=== PATIENT | female | born 1935 | race Caucasian/White ===

== ENCOUNTER 2025-09-03 09:01 | Inpatient (IN) | payer MEDICARE, SELFPAY ==
[2025-09-03] VITALS (16 sets, daily range): BP systolic 105–148; BP diastolic 46–120; BMI 28.2
--- NOTE | 2025-09-03 06:00 | ED.GENMED ---
History of Present Illness
General
Chief Complaint: Breathing Problem
Time Seen by Provider: 09/03/25 06:00
History of Present Illness
History of Present Illness:
FOCUSED PAST MEDICAL HISTORY
- [place] CA, COPD, AFlutter on Eliquis
REVIEW OF OLD RECORDS
- The patient had PET/CT December 2024
Note:
CHIEF COMPLAINT(S)
Difficulty breathing.
HISTORY OF PRESENT ILLNESS
The patient is an 89-year-old female with a history of lung cancer who was initially found to be in acute respiratory distress. Emergency Medical Services (EMS) reported that they discovered the patient with a wide-complex tachycardia with heart
rate in the 190. She was conscious when EMS administered cardioversion twice due to the sustained heart rate of 190 for 15-20 minutes, reporting feeling better post-procedure. She has experienced similar episodes in the past, possibly related to
atrial flutter as per her previous medical records. The onset of this episode was characterized by difficulty breathing, significantly alleviated by the use of a breathing machine at the hospital. She requires supplemental oxygen typically: 4 to 5
liters per minute. In her conversation, the patient mentioned previous hospitalizations potentially related to similar presentations. The patients history of smoking was confirmed, and she is currently still smoking despite her lung cancer diagnosis.
PAST MEDICAL AND SURIGICAL HISTORY
- Lung cancer
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
- History of atrial flutter
CHRONIC MEDICAL CONDITIONS SIGNIFICANTLY AFFECTING CARE
- Lung cancer
- Chronic Obstructive Pulmonary Disease (COPD)
- Atrial flutter
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
The patient continues to smoke despite her diagnosis of lung cancer.
MEDICATIONS
Eliquis (apixaban)
REVIEW OF SYSTEMS
- Respiratory: Difficulty breathing initially, improved with treatment. Regular use of supplemental oxygen (4-5 liters).
- Cardiovascular: History of tachycardia with a recent episode requiring cardioversion. No swelling or weight gain reported.
- General: Reports recent weight loss.
PHYSICAL EXAM
General: Appears somewhat weak and debilitated, low-grade temperature elevation, currently on high flow 50 L/min 80% oxygen
Skin: Warm, dry.
Head: Normocephalic, atraumatic.
Neck: Supple, trachea midline.
Eye, Ears, Nose, Mouth, and Throat: Oral mucosa moist.
Cardiovascular: Normal peripheral perfusion, No edema noted. Tachycardic, somewhat irregular
Respiratory: Respirations are non-labored, coarse breath sounds heard bilaterally.
Gastrointestinal: Abdomen nondistended.
Back: Normal range of motion, Normal alignment.
Musculoskeletal: Normal range of motion, normal strength.
Neurological: Alert and oriented to person, place, time, and situation. No focal neurological deficits observed.
Psychiatric: Cooperative, appropriate mood & affect.
PLAN
- Obtain a comprehensive panel of diagnostic tests including blood cultures due to the reported temperature of 104�F.
- Evaluation and monitoring for potential recurrent arrhythmias.
- Continuous review and management of chronic lung and cardiac conditions.
- Encourage cessation of smoking to aid in the management of her lung cancer and COPD.
DIFFERENTIAL DIAGNOSIS
The Differential Diagnosis includes, in no particular order and is not limited to:
- Atrial fibrillation/flutter
- Chronic Obstructive Pulmonary Disease exacerbation
- Lung cancer-related complications
- Heart failure
- Sepsis due to underlying infection
- Pulmonary embolism
- Pneumonia
- Anxiety or panic disorder
- Chronic bronchitis
- Acute respiratory distress syndrome (ARDS).
RADIOLOGY
- Chest x-ray shows density at right base�same site of known lung malignancy
EKG
- Suspect SVT ventricular rate 157 right axis deviation incomplete right bundle branch block
- Repeat EKG sinus 125
LABS
- White count 14.4, hemoglobin 11.2
- Creatinine 1.5, glucose 248, sodium 130
UPDATE
-I reviewed the EMS rhythm strip that showed a wide-complex tachycardia and was cardioverted x 2 by EMS
-Possible pneumonia; gave IV abx; leukocytosis, low grade temp elevation; was given Tylenol and IV fluids
-COPD exac requiring high flow - improved on high flow; also gave nebs and IV steroids
-Discussed w/ Dr. Neely
-Discussed w/ cardiology
Phy Exam
Physical Exam
Physical Exam:
See HPI
Scores
Heart Failure Risk
Heart Failure Risk Score: Not Applicable
Course
Orders/Labs/Results
Orders:
Orders
09/03/25 05:47
Electrocardiogram (*1) Urgent
Reason for Study: Tachycardia
09/03/25 05:48
EKG- Treatment ONCE
09/03/25 05:55
CMP [Comprehensive Metabolic Panel] Urgent
Complete Blood Count/With Diff Urgent
Magnesium Urgent
Comment: ADD ON
NT-proBNP Urgent
Comment: ADD ON
PTT Urgent
TSH Reflex To Free T4 Urgent
Comment: ADD ON
Troponin I Urgent
09/03/25 05:58
COVID-19 Antigen Urgent
Source: Nasal Swab
Influenza A+B Rapid Molecular Urgent
DARRYL Source: Nasal Swab
Specimen Description:
09/03/25 06:05
Electrocardiogram (*1) Urgent
Reason for Study: Tachycardia
09/03/25 06:06
EKG- Treatment ONCE
09/03/25 06:10
Add On- LAB Urgent
Tests Added?: BNP
Acetaminophen [Tylenol] 1,000 mg PO NOW STA
Dexamethasone Sod Phosphate [Decadron] 10 mg IV NOW STA
09/03/25 06:13
CR Chest Portable - 1 View Urgent
Comment:
Reason For Exam: lung CA, SOB
Reason Study Needs to be Portable: Unable to Transport
09/03/25 06:14
Lactic Acid Q4H
Comment: CANCEL 2nd LACTIC ACID IF 1st LACTIC ACID IS LESS THAN 2
Blood Culture Q30M
DARRYL Source: Blood/Venous
Specimen Description:
09/03/25 06:32
Add On- LAB Urgent
Tests Added?: mg, tsh reflex fT4
09/03/25 06:43
0.9% Sodium Chloride 500 ml [Nss] 500 ml IV BOLUS
Cefepime HCl [Maxipime] 1,000 mg IV NOW STA
09/03/25 06:44
Vancomycin [Vancocin] 2,000 mg 0.9% Sodium Chloride 500 ml [Nss] 500 ml IV NOW
09/03/25 06:45
Blood Culture Q30M
DARRYL Source: Blood/Venous
Specimen Description:
09/03/25 06:46
Ipratropium/Albuterol Sulfate [Duoneb] 3 ml INH R NOW STA
09/03/25 06:54
Sterile Water [Sterile Water For Injection] 10 ml .ROUTE .[facility]
09/03/25 07:11
Vancomycin [Vancocin] 2,000 mg 0.9% Sodium Chloride 500 ml [Nss] 500 ml IV NOW
09/03/25 10:15
Lactic Acid Q4H
Comment: CANCEL 2nd LACTIC ACID IF 1st LACTIC ACID IS LESS THAN 2
Abnormal Lab Results
09/03/25 09/03/25
05:55 06:14
WBC 14.4 H 10^3/uL
(4.8-10.8)
RBC 3.60 L 10^6/uL
(4.20-5.40)
Hgb 11.2 L g/dL
(12.0-16.0)
Hct 34.1 L %
(37.0-47.0)
MCH 31.1 H pg
(27.0-31.0)
MCHC 32.8 L g/dL
(33.0-37.0)
Abs Immat Gran (auto) 0.1 H 10^3/uL
(0-0.05)
Absolute Neuts (auto) 12.3 H 10^3/uL
(1.4-6.5)
Absolute Lymphs (auto) 1.0 L 10^3/uL
(1.2-3.4)
Absolute Monos (auto) 0.9 H 10^3/uL
(0.1-0.6)
Immature Gran % 0.6 H %
(0-0.5)
Neutrophils % 85.3 H %
(42.2-75.2)
Lymphocytes % 6.9 L %
(20.5-51.1)
Sodium 130 L mmol/L
(135-145)
BUN 22 H mg/dl
(7-17)
Creatinine 1.5 H mg/dL
(0.6-1.0)
Glucose 248 H mg/dl
(70-99)
Lactic Acid 2.1 H mmol/L
(0.7-2.0)
Magnesium 1.5 L mg/dl
(1.6-2.3)
Troponin I 0.065 H* ng/ml
Total Protein 5.7 L g/dl
(6.3-8.2)
Albumin 3.2 L g/dl
(3.5-5.0)
09/03/25 05:55
09/03/25 05:55
Vital Signs
Pulse: 125
Initial and Last Documented VS:
Initial Vital Signs
Temp Pulse Resp BP Pulse Ox
37.8 C 154 18 134/89 99
09/03/25 05:44 09/03/25 05:44 09/03/25 05:44 09/03/25 05:44 09/03/25 05:44
Last Documented Vital Signs
Temp Pulse Resp BP Pulse Ox
37.8 C 122 15 105/58 98
09/03/25 05:44 09/03/25 07:00 09/03/25 07:00 09/03/25 07:00 09/03/25 07:00
*Pulse Oximetry
SaO2: 96
Nasal Cannula flow liters per minute: 50
Oxygen Mode of Delivery: High Flow Nasal Cannula
Patient hypoxic: yes (Patient is chronically hypoxic, currently on nasal cannula and)
*Critical Care Note
Total Time (30-74mins, 75-104mins- exclusive of procedures): 60min
comment:
Patient is chronically hypoxic related to COPD and chronically on oxygen. She did have increased work of breathing and was placed on high flow oxygen with significant improvement. Her vital signs are closely monitored. She was cardioverted for
wide-complex tachycardia prior to arrival by EMS and her monitoring was closely monitored throughout her stay in the Emergency Department she was made on high flow and was given IV treatment as well as nebs.
ED Attending Note
-
Portions of this chart may have been created with voice recognition software.� Occasional wrong word or��sound alike� substitutions may have occurred due to the inherent limitations of voice recognition software.
Discharge Plan
Departure
Patient Disposition: Admit
Date of Disposition: 09/03/25
Time of Disposition: 07:30
Presentation/result/management discussed w/ accepting MD/DO: Hospitalist
Discharge Problem:
COPD exacerbation
Prescriptions:
No Action
prednisone 10 mg Tablet
10 mg PO DAILY
atorvastatin 10 mg Tablet
10 mg PO HS
oxybutynin chloride 10 mg Tablet Extended Release 24hr
10 mg PO DAILY
benzonatate 200 mg Capsule
200 mg PO HS
isosorbide mononitrate 30 mg Tablet Extended Release 24 Hr
30 mg PO DAILY
alendronate 70 mg Tablet
70 mg PO DAILY
clonidine HCl 0.3 mg Tablet
0.3 mg PO Q8
venlafaxine 150 mg Capsule,Extended Release 24hr
150 mg PO DAILY
isosorbide mononitrate 60 mg Tablet Extended Release 24 Hr
60 mg PO DAILY
benzonatate 100 mg Capsule
100 mg PO BID
montelukast 10 mg Tablet
10 mg PO HS
hydralazine 50 mg Tablet
50 mg PO Q8
levofloxacin 750 mg Tablet
750 mg PO DAILY
letrozole 2.5 mg Tablet
2.5 mg PO DAILY
albuterol sulfate 90 mcg/actuation Hfa Aerosol Inhaler
108 mcg INHALATION Q4
Rx Instructions:
2 puffs
lisinopril 40 mg Tablet
40 mg PO DAILY
fluticasone propionate 50 mcg/actuation [place],Suspension
1 spray INTRANASAL BID
diltiazem HCl [Cardizem LA] 180 mg Tablet Extended Release 24 Hr
180 mg PO DAILY
fluticasone propion-salmeterol 230-21 mcg/actuation Hfa Aerosol Inhaler
1 puff INHALATION Q12H
levocetirizine 5 mg Tablet
5 mg PO DAILY
Eliquis 5 mg Tablet
5 mg PO BID
Referrals:
UNKNOWN - PT DOES,NOT KNOW [Family Provider]
Interventions
Interventions:
*Risk Screen - Suicide Last Done: 09/03/25 05:55
*General Assessment Last Done: 09/03/25 05:55
*Neglect/Abuse Screening Last Done: 09/03/25 05:55
*ED- Fall Risk Assessment Last Done: 09/03/25 06:19
*ED COVID-19 Vaccine History Last Done: 09/03/25 05:55
*ED Influenza Vaccine History Last Done: 09/03/25 05:55
ED- Cardiac Assessment Last Done: 09/03/25 07:06
ED- Pulmonary Assessment Last Done: 09/03/25 07:06
Discharge Date and Time
Print Language: RUSSIAN
[2025-09-03 06:19] LABS: Hematocrit 34.1 % (37.0-47.0); Hemoglobin 11.2 g/dL (12.0-16.0); Mean Corp Hgb Conc. 32.8 g/dL (33.0-37.0); Mean Corpuscular Volume 94.7 fL (81.0-99.0); Nucleated Red Blood Cells % 0 %; Platelet Count 288 10^3/uL (130-400); Red Cell Dist. Width 13.6 % (11.5-14.5)
[2025-09-03 06:27] LABS: ALT (SGPT) 22 U/L (0-35); AST (SGOT) 27 U/L (14-36); Albumin 3.2 g/dl (3.5-5.0); Alkaline Phosphatase 68 U/L (38-126); Blood Urea Nitrogen 22 mg/dl (7-17); Calcium 9.0 mg/dl (8.4-10.2); Carbon Dioxide 23 mmol/L (22-30); Chloride 99 mmol/L (98-107); Estimated Creatinine Clearance 27 ml/min; Glucose 248 mg/dl (70-99); Potassium 4.8 mmol/L (3.5-5.1); Sodium 130 mmol/L (135-145); Total Protein 5.7 g/dl (6.3-8.2); eGFR 33.52
[2025-09-03 06:29] LABS: APTT 34.7 Sec (23.4-35.0)
[2025-09-03] MEDS: DECADRON 10 MG IV (06:33)
[2025-09-03] MEDS: TYLENOL 1000 MG PO (06:33)
[2025-09-03 06:42] LABS: Troponin I 0.065 ng/ml
[2025-09-03 06:48] LABS: Magnesium 1.5 mg/dl (1.6-2.3)
[2025-09-03] MEDS: MAXIPIME 1000 MG IV (06:56)
[2025-09-03] MEDS: DUONEB 3 ML INH ×4 (06:57→19:18)
[2025-09-03] MEDS: NSS 500 IV (06:57)
[2025-09-03 06:59] LABS: COVID-19 Antigen Negative (Negative)
--- NOTE | 2025-09-03 07:19 | HPS.HSE ---
Family Physician
-
Family Physician: NOT KNOW UNKNOWN - PT DOES
Chief Complaint
-
Shortness of breath
History of Present Illness
89-year-old female with a history of lung cancer presented to the ER reporting shortness of breath. Patient has a past medical history of atrial flutter on Eliquis, COPD on 5 L home oxygen, lung cancer, CHF, anxiety/depression. As per ER�' ems
reported that they discovered the patient with a wide-complex tachycardia with heart rate in the 190. She was conscious when EMS administered cardioversion twice due to the sustained heart rate of 190 for 15-20 minutes, reporting feeling better
post-procedure'.
Patient reports having shortness of breath since the past 4 days, which got worse over time. In the morning today after waking up, her oxygen requirement has increased, and she also reports having some lightheadedness. No syncopal episodes,
fever/chills, chest pain, abdominal pain, bladder/bowel disturbances. No recent sick contacts.
ED course�white count 14.4, hemoglobin 11.2, BUNs/creatinine�22/1.5, glucose 248, sodium 130. Lactate�2.1, repeat pending, magnesium�1.5. Troponin�0.065,
EMS rhythm strip as per ER physician�wide-complex tachycardia
EKG in the ER�SVT, incomplete right bundle branch block
Repeat EKG�sinus tachycardia 125.
Medical History
Past Medical History
Past Medical History: Reports Other (atrial fibrillation/flutter, COPD, lung cancer, CHF,)
Past Surgical History: Reports Other (Mastectomy)
Social History
Tobacco: Smoker (Smokes 6 cigarettes/day)
Alcohol: None
Drug: None
Living: [facility]
Employment: Retired
Family History
Family History: Not pertinent
Allergies / Home Medications
Allergies reflects when Allergies were last updated in [facility].
Home Medications with original date entered in [facility]
Allergy/Medication List:
Allergies
Allergy/AdvReac Type Severity Reaction Status Date / Time
Sulfa (Sulfonamide Allergy Intermediate Rash Verified 09/03/25 06:19
Antibiotics)
Penicillins Allergy Mild Rash Verified 09/03/25 06:19
strawberry Allergy Mild Rash Verified 09/03/25 06:19
hydrochlorothiazide Allergy Unknown Rash Verified 09/03/25 06:19
codeine AdvReac Unknown Unknown Verified 09/03/25 06:19
Home Medications
albuterol sulfate 90 mcg/actuation aerosol inhaler 108 mcg inhalation Q4 sob 09/03/25
alendronate 70 mg tablet 70 mg PO DAILY 09/03/25
apixaban 5 mg tablet (Eliquis) 5 mg PO BID aflutter 09/03/25
atorvastatin 10 mg tablet 10 mg PO HS 09/03/25
benzonatate 100 mg capsule 100 mg PO BID cough 09/03/25
benzonatate 200 mg capsule 200 mg PO HS cough 09/03/25
clonidine HCl 0.3 mg tablet 0.3 mg PO Q8 htn 09/03/25
diltiazem HCl 180 mg tablet,extended release 24 hr (Cardizem LA) 180 mg PO DAILY htn 09/03/25
fluticasone propionate 230 mcg-salmeterol 21 mcg/actuation HFA inhaler 1 puff inhalation Q12H copd 09/03/25
fluticasone propionate 50 mcg/actuation nasal spray,suspension 1 spray intranasal BID allergic rhinitis 09/03/25
hydralazine 50 mg tablet 50 mg PO Q8 htn 09/03/25
isosorbide mononitrate 30 mg tablet,extended release 24 hr 30 mg PO DAILY htn 09/03/25
isosorbide mononitrate 60 mg tablet,extended release 24 hr 60 mg PO DAILY htn 09/03/25
letrozole 2.5 mg tablet 2.5 mg PO DAILY breast CA hx 09/03/25
levocetirizine 5 mg tablet 5 mg PO DAILY allergies 09/03/25
levofloxacin 750 mg tablet 750 mg PO DAILY bronchopneumonia 09/03/25
lisinopril 40 mg tablet 40 mg PO DAILY htn 09/03/25
montelukast 10 mg tablet 10 mg PO HS copd 09/03/25
oxybutynin chloride 10 mg tablet,extended release 24 hr 10 mg PO DAILY overactive bladder 09/03/25
prednisone 10 mg tablet 10 mg PO DAILY 09/03/25
venlafaxine 150 mg capsule,extended release 24 hr 150 mg PO DAILY Depression 09/03/25
Review of Systems
-
A 12 point ROS was completed and negative except as noted: Yes
Physical Exam
Vital Signs
Vital Signs
Temp Pulse Resp BP Pulse Ox
100.1 F 122 15 105/58 98
09/03/25 05:44 09/03/25 07:00 09/03/25 07:00 09/03/25 07:00 09/03/25 07:00
Physical Exam
HEENT: NormoCephalic and Atraumatic
Respiratory: Wheezes and Rales
Cardiac: S1/S2, Irregular Rhythm and Tachycardia
GI: Soft, Non Tender, Non Distended and Normal Bowel Sounds
Skin: Warm and Dry
Neuro: Awake, Alert, Oriented and AO x 3
Psych: Calm
Laboratory Results
-
09/03/25 05:55
09/03/25 05:55
Laboratory Results
APTT 34.7 Sec (23.4-35.0) 09/03/25 05:55
Lactic Acid 2.1 mmol/L (0.7-2.0) H 09/03/25 06:14
Total Bilirubin 0.9 mg/dl (0.2-1.3) 09/03/25 05:55
AST 27 U/L (14-36) 09/03/25 05:55
ALT 22 U/L (0-35) 09/03/25 05:55
Alkaline Phosphatase 68 U/L (38-126) 09/03/25 05:55
Troponin I 0.065 ng/ml H* 09/03/25 05:55
Impression/Plan
-
IMPRESSION:
89-year-old female with past medical history of COPD on home oxygen, 5 L, lung cancer s/p radiation, breast cancer s/p mastectomy, radiation, essential hypertension, atrial fibrillation/flutter, hyperlipidemia, anxiety disorder, CHF presenting with
SOB.
PLAN:
#Acute on chronic hypoxemic respiratory failure
#Sepsis with endorgan dysfunction (patient requiring high flow)
Sepsis likely secondary to pneumonia
Elevated white count, lactate 2.1
COVID/flu negative
Acute RF secondary to pneumonia versus COPD exacerbation
DuoNebs
Decadron
Start IV fluids
Start antibiotics�vancomycin, cefepime
Check CT chest without contrast
Consult pulmonology
Sputum culture
Follow blood culture
Monitor fever curve, CBC
#Atrial flutter
Wide-complex tachycardia noticed by EMS
S/p cardioversion X2
SVT on arrival to ER, spontaneously converted to sinus
Patient is in sinus rhythm now
Consult cardiology
Continue Eliquis
Continue diltiazem
Check echo
#Breast cancer
Continue letrozole
#Hyperlipidemia
Continue atorvastatin
#Essential hypertension
Will hold lisinopril, Imdur, hydralazine
#Nicotine use
Nicotine patch
#Depression
Continue venlafaxine
Medication reconciliation still pending.
DVT prophylaxis�Eliquis
Diet�low-sodium
DNR
--- NOTE | 2025-09-03 07:58 | W.PN.UPDATE ---
Update Note
Progress Note Update
I personally performed a history and physical exam of the patient and discussed management with the resident. I reviewed the resident's note and agree with the documented findings and plan of care HPI/CC.
89-year-old female presents from her custodial with a chief complaint of shortness of breath.
105/58, 122, 15, 100.1 F, 98% high flow 50L/80% FiO2
Gen: NAD, Awake and alert, appears chronically ill
Eyes: EOMI, PERRLA, no scleral icterus.
Neck: supple.
CV: tachy, reg rhythm, +S1/S2, no m/r/g.
Resp: B/L exp wheezes and rhonchi
Abd: +BS, soft, NT, ND
Skin: No rashes.
Neuro: CN 2-12 intact, non-focal.
Psych: Normal mood and affect.
Lab Results
09/03/25 09/03/25 09/03/25
05:55 05:58 06:14
WBC 14.4 H
RBC 3.60 L
Hgb 11.2 L
Hct 34.1 L
MCV 94.7
MCH 31.1 H
MCHC 32.8 L
RDW 13.6
Plt Count 288
MPV 8.9
Abs Immat Gran (auto) 0.1 H
Absolute Neuts (auto) 12.3 H
Absolute Lymphs (auto) 1.0 L
Absolute Monos (auto) 0.9 H
Absolute Eos (auto) 0.1
Absolute Basos (auto) 0.1
Immature Gran % 0.6 H
Neutrophils % 85.3 H
Lymphocytes % 6.9 L
Monocytes % 6.5
Eosinophils % 0.4
Basophils % 0.3
Nucleated RBC % 0
APTT 34.7
Sodium 130 L
Potassium 4.8
Chloride 99
Carbon Dioxide 23
BUN 22 H
Creatinine 1.5 H
Estimated Creat Clear 27
eGFR 33.52
Glucose 248 H
Lactic Acid 2.1 H
Calcium 9.0
Magnesium 1.5 L
Total Bilirubin 0.9
AST 27
ALT 22
Alkaline Phosphatase 68
Troponin I 0.065 H*
[id number] Pept 2720
Total Protein 5.7 L
Albumin 3.2 L
TSH (Reflex) 1.75
SARS-CoV-2 Antigen Negative
Acute on chronic hypoxic respiratory failure:
-on 5L NC O2 at baseline, currently on highflow
-elevated lactic acid
-CXR (read by me) shows R-sided changes c/w prior radiation with possible superimposed PNA
-likely sepsis due to PNA with acute COPD exac
-cont Vanco/Zosyn/Decadron
-cont IVFs
-c/s pulm
-check CT chest
WCT/SVT, h/o aflutter:
-s/p CV x 2 in the field for WCT, converted to SVT, then spontaneously converted to sinus tachy
-monitor on tele
-c/s cards
-cont Eliquis
-cont cardizem
-check echo
Essential HTN:
-hold home clonidine/ACEi/Imdur/Hydralazine
DNR/Heparin
--- NOTE | 2025-09-03 09:19 | CON.CAR ---
Addendum entered and electronically signed by Hari Bentley MD 09/03/25 15:52:
I reviewed and agree with the note by LISETTE and it accurately reflects our care.
I saw and evaluated the patient, and I provided the substantive portion of the medical decision making. My assessment and plan is below:
89-year-old female with lung cancer, COPD on home oxygen, atrial flutter on anticoagulation who developed respiratory distress at her assisted. EMS was called and found her to be in a wide-complex tachycardia. She was cardioverted twice in the
field without sedation. I reviewed the rhythm strips which show a regular wide-complex tachycardia at 227 bpm followed by shock. After the shock, she seems to have an irregular wide-complex tachycardia of a different morphology that then
transitions to sinus/junctional with very frequent PVCs. Prior to the second shock, rhythm appears to be a slower, regular wide-complex tachycardia (morphology similar to sinus) at ~160 BPM with frequent PVCs. Rhythm is unchanged after second
shock. She tells me that she was asymptomatic during the arrhythmias. Since arrival, she has had intermittent runs of SVT with wandering atrial pacemaker at baseline. She feels much better than when she first came to the hospital. She denies
chest pain, palpitations, lower extremity edema, and orthopnea. She is being treated for possible pneumonia and COPD exacerbation. Plan is for thoracentesis with cytology. She may need biopsy of right upper lobe lesion seen on CT chest.
Physical exam: irregular rhythm, no murmurs rubs or gallops, decreased breath sounds at the right base, no lower extremity edema
ECG 09/03/2025 at 5:48 shows atrial tachycardia, HR 157 bpm, incomplete RBBB, RVH
ECG 09/03/2025 at 6:08 shows sinus rhythm with frequent premature atrial complexes versus wandering atrial pacemaker
Labs notable for WBC 14.4, Creatinine 1.5, sodium 130, lactate 2.1, troponin 0.065 -> 0.237
TTE 09/03/2025: LVEF 70-75%, mild/moderate MR, moderate TR, PASP [address] chest 09/03/2025: RUL consolidation (atelectasis versus pneumonia versus neoplasm), moderate right pleural effusion, lymphadenopathy
A/P:
Wide-complex tachycardia: On EMS arrival, she had a regular wide-complex tachycardia at 227 bpm. She was conscious and morphology appears similar to [place] QRS so I suspect that this was SVT with aberrancy. On first twelve-lead ECG after arrival to
the hospital, she had atrial tachycardia and on telemetry seems to have a wandering atrial pacemaker/multifocal atrial tachycardia which fits with her severe lung disease. I suspect that her rapid atrial arrhythmias are being triggered by
respiratory distress in the setting of COPD exacerbation and possible pneumonia versus malignancy. We will continue her home diltiazem 180 mg daily and uptitrate as tolerated. We should try to avoid beta-blockers and amiodarone given her severe
underlying lung disease. Continue Eliquis 2.5 mg twice daily (creatinine 1.5, age >80). We need to watch renal function closely for dose adjustment.
Abnormal troponin: Likely due to nonischemic myocardial injury in the setting of tachyarrhythmias and respiratory distress. She does not have any chest pain or ischemic ECG changes. Trend to peak.
Hypoxic respiratory failure: Pulmonary following for treatment of COPD exacerbation. Plan is for diagnostic thoracentesis. May need repeat lung biopsy.
Severe pulmonary hypertension: PASP 77 mmHg on TTE. Suspect group 3 from lung disease. Consider diuresis if still short of breath despite treatment of underlying lung disease.
Remainder as per LISETTE note. We will follow along with you.
Addendum entered and electronically signed by LISETTE Cheng 09/03/25 10:30:
Dr. Bentley is cardiology attending today for this patient.
Original Note:
Consultation
Consultation Request
Date/Time Consultation Requested: 09/03/25 0746
Date/Time Consultation Performed: 09/03/25 0800
Requesting Provider: Dr. Gamboa
Performing Provider: Rhona KNOX for Dr. Bentley
Reason for Consultation: Arrhythmia
Medical History
-
Chief Complaint: SOB
History of Present Illness:
89 y/o female with lung cancer, COPD, on O2 by [place], Atrial flutter on Eliquis, multidrug HTN, and current smoking who is here from [place] after she was seen to have acute respiratory distress. She reports since Sunday afternoon, she has been feeling
'lousy'. She has had SOB and weakness. She also has had chills and productive cough (yellow sputum). She reportedly had significant fever. She was seen to have WCT and was cardioverted by EMS per ER report. In ER, she had SVT with IC RBBB, but
converted to ST without further intervention. She is on high-flow O2 and getting IV ABX. She is in no distress at the time of my assessment. She tells me she was cardioverted at [place] earlier this year, but does not know any other details. She
denies any history of CAD or CHF. She cannot identify a [employer] member she sees. She denies any CP.
Past Medical History
Past Medical History: Arrhythmias, Cancer, COPD and HTN
Social History
Tobacco: Smoker (6 cigarettes per day)
Family History
Family History: Reviewed & Not Pertinent
Allergies / Home Medications
Allergy/AdvReac Type Severity Reaction Status Date / Time
Sulfa (Sulfonamide Allergy Intermediate Rash Verified 09/03/25 06:19
Antibiotics)
Penicillins Allergy Mild Rash Verified 09/03/25 06:19
strawberry Allergy Mild Rash Verified 09/03/25 06:19
hydrochlorothiazide Allergy Unknown Rash Verified 09/03/25 06:19
codeine AdvReac Unknown Unknown Verified 09/03/25 06:19
�Medication �Instructions �Recorded �Confirmed �Type
acetaminophen 325 mg tablet 650 mg PO Q6HPRN PRN MILD PAIN 09/03/25 09/03/25 History
(Tylenol)
albuterol sulfate 90 mcg/actuation 2 puff inhalation R Q4HPRN PRN SOB 09/03/25 09/03/25 History
aerosol inhaler
alendronate 70 mg tablet 70 mg PO MO 09/03/25 09/03/25 History
apixaban 5 mg tablet (Eliquis) 5 mg PO BID aflutter 09/03/25 09/03/25 History
atorvastatin 10 mg tablet 10 mg PO HS 09/03/25 09/03/25 History
benzonatate 100 mg capsule 100 mg PO BID cough 09/03/25 09/03/25 History
benzonatate 200 mg capsule 200 mg PO HS cough 09/03/25 09/03/25 History
bisacodyl 10 mg rectal suppository 10 mg MD DAILYPRN PRN IF NO BM 09/03/25 09/03/25 History
(Dulcolax (bisacodyl)) AFTR MOM
cholecalciferol (vitamin D3) 125 125 mcg PO DAILY Supplement 09/03/25 09/03/25 History
mcg (5,000 unit) tablet (Vitamin
D3)
clonidine HCl 0.3 mg tablet 0.3 mg PO TID htn 09/03/25 09/03/25 History
diltiazem HCl 180 mg 180 mg PO DAILY htn 09/03/25 09/03/25 History
tablet,extended release 24 hr
(Cardizem LA)
fexofenadine 60 mg tablet 60 mg PO BIDPRN PRN ALLERGIES 09/03/25 09/03/25 History
fluticasone 250 mcg-salmeterol 50 1 inh inhalation R BID 09/03/25 09/03/25 History
mcg/dose blistr powdr for Lung/Breathing Issues
inhalation (Advair Diskus)
fluticasone propionate 50 1 spray intranasal BID allergic 09/03/25 09/03/25 History
mcg/actuation nasal rhinitis
spray,suspension
guaifenesin 100 mg/5 mL oral 200 mg PO Q6HPRN PRN COUGH 09/03/25 09/03/25 History
liquid (Luz-Tussin)
guaifenesin 600 mg tablet, 600 mg PO BID 09/03/25 09/03/25 History
extended release 12 hr (Mucinex)
hydralazine 50 mg tablet 50 mg PO TID htn 09/03/25 09/03/25 History
hydrocortisone 2.5 % topical cream 1 applic topical BID RASH 09/03/25 09/03/25 History
hydroxyzine HCl 25 mg tablet 25 mg PO BIDPRN PRN ITCHING 09/03/25 09/03/25 History
ipratropium 0.5 mg-albuterol 3 mg 3 ml inhalation R Q6HPRN PRN SOB 09/03/25 09/03/25 History
(2.5 mg base)/3 mL nebulization
soln
isosorbide mononitrate 30 mg 90 mg PO DAILY htn 09/03/25 09/03/25 History
tablet,extended release 24 hr
letrozole 2.5 mg tablet 2.5 mg PO DAILY breast CA hx 09/03/25 09/03/25 History
levocetirizine 5 mg tablet 5 mg PO DAILY allergies 09/03/25 09/03/25 History
levofloxacin 750 mg tablet 750 mg PO DAILY bronchopneumonia 09/03/25 09/03/25 History
lisinopril 40 mg tablet 40 mg PO DAILY htn 09/03/25 09/03/25 History
magnesium hydroxide 400 mg/5 mL 2,400 mg PO [id number] PRN 09/03/25 09/03/25 History
oral suspension (Milk of Magnesia) CONSTIPATION
melatonin 3 mg tablet 3 mg PO HS 09/03/25 09/03/25 History
menthol 4 % topical gel (Biofreeze 1 applic topical BID LEFT 09/03/25 09/03/25 History
(menthol)) HIP/LOWER BACK
montelukast 10 mg tablet 10 mg PO HS copd 09/03/25 09/03/25 History
olopatadine 0.7 % eye drops 1 drp BOTH EYES BID Eye Condition 09/03/25 09/03/25 History
(Pataday Once Daily Relief)
ondansetron HCl 4 mg tablet 4 mg PO Q8HPRN PRN NAUSEA 09/03/25 09/03/25 History
oxybutynin chloride 10 mg 10 mg PO DAILY overactive bladder 09/03/25 09/03/25 History
tablet,extended release 24 hr
prednisone 10 mg tablet 10 mg PO DAILY MA[employer] 09/03/25 09/03/25 History
sodium phosphates 19 gram-7 118 ml MD DAILYPRN PRN IF NO BM 09/03/25 09/03/25 History
gram/118 mL enema (Fleet Enema) AFTR DULCOLAX
venlafaxine 150 mg 150 mg PO DAILY Depression 09/03/25 09/03/25 History
capsule,extended release 24 hr
vitamins A,C,G-srjo-typtfn 2,148 1 tab PO DAILY Supplement 09/03/25 09/03/25 History
mcg-113 mg-45 mg-17.4 mg tablet
(PreserVision AREDS)
Review of Systems
-
History Source: Patient and Other (and chart)
All other systems: Negative unless noted
Constitutional: Fever and Chills
Respiratory: Cough and Trouble Breathing
Physical Exam
Vital Signs
Temp Pulse Resp BP Pulse Ox
100.1 F 108 12 114/46 96
09/03/25 05:44 09/03/25 08:30 09/03/25 08:30 09/03/25 08:00 09/03/25 07:45
Lab Results
09/03/25 05:55
09/03/25 05:55
Troponin I 0.065 ng/ml H* 09/03/25 05:55
Oex-K-Psdrqpnpsdl Pept 2720 pg/ml 09/03/25 05:55
Physical Exam
General: Well Developed, Well Nourished and No Apparent Distress
HEENT: Normocephalic and Anicteric
Respiratory: Rhonchi and Other (on high flow O2)
Cardiac: Regular Rhythm
Musculoskeletal: No Edema
Skin: Warm and Dry
Neuro: Awake, Alert and Oriented
Psych: Calm
Impression / Plan
-
Jlcco-yy-hwoebrh hypoxic respiratory failure:
-multifactorial with COPD exac, suspected PNA, and known lung cancer
-severe: on high flow O2, on ABX, on steroids and breathing tx
-smoking cessation is recommended
-pulmonary consulted
Arrhythmia:
-patient had WCT, which was cardioverted x 2 via EMS per chart. In ER, seen to have SVT- will review strips/EKG with [employer] member, but suspect SVT/AT/flutter with rate related bundle. Will replace mag, which is low.
-hx atrial flutter per chart, with hx CV per patient
-continue Eliquis. If creatinine remains elevated, will need to change Eliquis dosing to lower dose.
-continue diltiazem and monitor telemetry
-this is in setting of acute illness, which is being treated as above
-obtain echo
Abnormal troponin:
-acute, non-ischemic myocardial injury in setting of respiratory failure, tachyarrhythmia
-can trend to peak
-checking echo
HTN:
-on multidrug regimen as OP
-some meds being held in setting of acute illness
-monitor BP's closely
Data Reviewed
-
EKG: Tracing Personally Visualized and interpreted (SVT, likely AT, IC RBBB 157 BPM) and Other (Discussed EMS strips with Dr. Gamboa)
Radiology: Report Reviewed by me (CXR: Small right pleural effusion. Patchy right lung opacities are at least in part related to atelectasis/scarring; however, superimposed pneumonia and/or neoplasm not excluded.)
Medical Tests (Nuc Med, Echo etc): Other (echo is ordered)
Labs: Labs Reviewed by me
--- NOTE | 2025-09-03 09:35 | CM ---
Chart reviewed and spoke with patient at ED bedside
Pt reports that she lives in [facility] as LTC for 9 months
'Not nice [address] but at least they let me smoke cigarettes '
Confirms that she was on O2 at [facility]
She is 'not seeking any treatment for lung cancer'
Will tx to IMU per order
LVM with [facility] to get a report
LVM with son Jordon MATTHEW per pt at [phone]
will continue to follow up for any dcp needs
[2025-09-03] MEDS: VANCOCIN IV (09:38)
[2025-09-03] MEDS: VANCOCIN 540 MG IV (09:40)
--- NOTE | 2025-09-03 09:48 | PHA.VAN.IN ---
Assessment
- Assessment
Renal Function: Unknown baseline
Concomitant Antimicrobials: cefepime
Plan
- Plan
Initial / Loading Dose: 2000mg - 09/03 - scanned at 09:40 but hung at least an hr prior
Maintenance Regimen: dosing by level
Monitoring: random 09/04 0600
MRSA Screen: Ordered per protocol
Pharmacokinetics Vancomycin I
- -
Patient Age: 89
Patient Sex: Female
Vancomycin Day #: 1
Indication: Pulmonary/Respiratory
Requesting Provider: Dr. Roth
Pertinent Antimicrobial Allergies:
sulfonamide antibiotics - rash
penicillins - rash
Height / Weight:
Height 5 ft 5 in
Actual Weight 77 kg
Pertinent Past Medical History: COPD (home O2)
- Vital Signs / Lab Results
Temp Pulse Resp BP Pulse Ox
100.1 F 108 12 114/46 96
09/03/25 05:44 09/03/25 08:30 09/03/25 08:30 09/03/25 08:00 09/03/25 07:45
Lab Results - Hematology
09/03/25
05:55
WBC 14.4 H
Lab Results - Chemistry
09/03/25
05:55
BUN 22 H
Creatinine 1.5 H
Estimated Creat Clear 27
Albumin 3.2 L
09/03/25
06:14
Lactic Acid 2.1 H
Microbiology Results
09/03/25 05:58 Influenza Types A & B (YESSENIA) - Final
Nasal Swab Negative for Influenza A & B, NAAT
Negative results must be combined with clinical observations
and patient history.
Nucleic Acid Amplification test (NAAT)performed on the
[employer] platform.
[2025-09-03] MEDS: ELIQUIS 5 MG PO (10:14)
[2025-09-03] MEDS: NSS 1000 IV (11:28)
[2025-09-03] MEDS: ZYRTEC 10 MG PO (11:46)
[2025-09-03] MEDS: TESSALON PERLES 100 MG PO ×2 (11:46→21:22)
[2025-09-03] MEDS: CARDIZEM CD 180 MG PO (11:46)
[2025-09-03 12:29] LABS: Troponin I 0.237 ng/ml
[2025-09-03 13:14] LABS: Glucose - Point of Care 170 mg/dl (70-99)
[2025-09-03] MEDS: MAGNESIUM SULFATE 102 GRAMS IV (14:48)
[2025-09-03] MEDS: NOVOLOG FLEXPEN-LOW RESISTANCE SC ×2 (14:49→17:50)
[2025-09-03] MEDS: DECADRON 4 MG IV (14:57)
[2025-09-03 15:02] LABS: Body Fluid Second Tech US
--- NOTE | 2025-09-03 15:07 | CON.PUL ---
Consultation
Consultation Request
Date/Time Consultation Requested: 09/03/2025
Date/Time Consultation Performed: 09/03/2025
Medical History
-
Chief Complaint: Shortness of breath
History of Present Illness:
Patient is a very pleasant 89-year-old female with history of lung cancer as well as COPD, baseline oxygen dependent, a flutter on Eliquis, who presented to the emergency room via EMS due to worsening shortness of breath over the last few days.
Patient reports increased cough, discoloration of sputum and runny nose over the last few days. Patient started to feel poorly and her current increased wheezing, shortness of breath. EMS was called and patient was noted to be hypoxic and started
on high flow oxygen. And route patient developed wide-complex tachycardia requiring cardioversion x 2. In the emergency room patient was noted to have mild troponin leak. She had a CT chest performed which showed increased opacity in the area of
prior lung cancer concerning for superimposed pneumonia versus progression of disease. In addition patient noted to have moderate right-sided pleural effusion with compressive atelectasis versus pneumonia. Patient was admitted to hospitalist
service and pulmonary consultation was requested for further input regarding abnormal CT chest.
Past Medical History
Past Medical History: Reports Other (atrial fibrillation/flutter, COPD, lung cancer, CHF,)
Past Surgical History: Reports Other (Mastectomy)
Social History
Tobacco: Smoker (Smokes 6 cigarettes/day)
Alcohol: None
Drug: None
Living: Jail
Employment: Retired
Family History
Family History: Not pertinent
Allergies / Home Medications
Allergies
Allergy/AdvReac Type Severity Reaction Status Date / Time
Sulfa (Sulfonamide Allergy Intermediate Rash Verified 09/03/25 06:19
Antibiotics)
Penicillins Allergy Mild Rash Verified 09/03/25 06:19
strawberry Allergy Mild Rash Verified 09/03/25 06:19
hydrochlorothiazide Allergy Unknown Rash Verified 09/03/25 06:19
codeine AdvReac Unknown Unknown Verified 09/03/25 06:19
Home Medications
�Medication �Instructions �Recorded �Confirmed �Last Taken �Type
acetaminophen 325 mg tablet 650 mg PO Q6HPRN PRN MILD PAIN 09/03/25 09/03/25 Unknown History
(Tylenol)
albuterol sulfate 90 mcg/actuation 2 puff inhalation R Q4HPRN PRN SOB 09/03/25 09/03/25 Unknown History
aerosol inhaler
alendronate 70 mg tablet 70 mg PO MO bone health 09/03/25 09/03/25 Unknown History
apixaban 5 mg tablet (Eliquis) 5 mg PO BID Blood Clot 09/03/25 09/03/25 Unknown History
Prevention/Tx
atorvastatin 10 mg tablet 10 mg PO HS High Cholesterol 09/03/25 09/03/25 Unknown History
benzonatate 100 mg capsule 100 mg PO BID cough 09/03/25 09/03/25 Unknown History
benzonatate 200 mg capsule 200 mg PO HS cough 09/03/25 09/03/25 Unknown History
bisacodyl 10 mg rectal suppository 10 mg MS DAILYPRN PRN IF NO BM 09/03/25 09/03/25 Unknown History
(Dulcolax (bisacodyl)) AFTR MOM
cholecalciferol (vitamin D3) 125 125 mcg PO DAILY Supplement 09/03/25 09/03/25 Unknown History
mcg (5,000 unit) tablet (Vitamin
D3)
clonidine HCl 0.3 mg tablet 0.3 mg PO TID Blood Pressure 09/03/25 09/03/25 Unknown History
diltiazem HCl 180 mg 180 mg PO DAILY Arrhythmia 09/03/25 09/03/25 Unknown History
tablet,extended release 24 hr
(Cardizem LA)
fexofenadine 60 mg tablet 60 mg PO BIDPRN PRN ALLERGIES 09/03/25 09/03/25 Unknown History
fluticasone 250 mcg-salmeterol 50 1 inh inhalation R BID 09/03/25 09/03/25 Unknown History
mcg/dose blistr powdr for Lung/Breathing Issues
inhalation (Advair Diskus)
fluticasone propionate 50 1 spray intranasal BID allergic 09/03/25 09/03/25 Unknown History
mcg/actuation nasal rhinitis
spray,suspension
guaifenesin 100 mg/5 mL oral 200 mg PO Q6HPRN PRN COUGH 09/03/25 09/03/25 Unknown History
liquid (Luz-Tussin)
guaifenesin 600 mg tablet, 600 mg PO BID Congestion 09/03/25 09/03/25 Unknown History
extended release 12 hr (Mucinex)
hydralazine 50 mg tablet 50 mg PO TID Blood Pressure 09/03/25 09/03/25 Unknown History
hydrocortisone 2.5 % topical cream 1 applic topical BID RASH 09/03/25 09/03/25 Unknown History
hydroxyzine HCl 25 mg tablet 25 mg PO BIDPRN PRN ITCHING 09/03/25 09/03/25 Unknown History
ipratropium 0.5 mg-albuterol 3 mg 3 ml inhalation R Q6HPRN PRN SOB 09/03/25 09/03/25 Unknown History
(2.5 mg base)/3 mL nebulization
soln
isosorbide mononitrate 30 mg 90 mg PO DAILY Heart 09/03/25 09/03/25 Unknown History
tablet,extended release 24 hr Disease/Condition
letrozole 2.5 mg tablet 2.5 mg PO DAILY Cancer 09/03/25 09/03/25 Unknown History
levocetirizine 5 mg tablet 5 mg PO DAILY allergies 09/03/25 09/03/25 Unknown History
levofloxacin 750 mg tablet 750 mg PO DAILY bronchopneumonia 09/03/25 09/03/25 Unknown History
lisinopril 40 mg tablet 40 mg PO DAILY Blood Pressure 09/03/25 09/03/25 Unknown History
magnesium hydroxide 400 mg/5 mL 2,400 mg PO [id number] PRN 09/03/25 09/03/25 Unknown History
oral suspension (Milk of Magnesia) CONSTIPATION
melatonin 3 mg tablet 3 mg PO HS Sleep 09/03/25 09/03/25 Unknown History
menthol 4 % topical gel (Biofreeze 1 applic topical BID LEFT 09/03/25 09/03/25 Unknown History
(menthol)) HIP/LOWER BACK
montelukast 10 mg tablet 10 mg PO HS Lung/Breathing Issues 09/03/25 09/03/25 Unknown History
olopatadine 0.7 % eye drops 1 drp BOTH EYES BID Eye Condition 09/03/25 09/03/25 Unknown History
(Pataday Once Daily Relief)
ondansetron HCl 4 mg tablet 4 mg PO Q8HPRN PRN NAUSEA 09/03/25 09/03/25 Unknown History
oxybutynin chloride 10 mg 10 mg PO DAILY overactive bladder 09/03/25 09/03/25 Unknown History
tablet,extended release 24 hr
prednisone 10 mg tablet 10 mg PO DAILY anti-inflammation 09/03/25 09/03/25 Unknown History
sodium phosphates 19 gram-7 118 ml MS DAILYPRN PRN IF NO BM 09/03/25 09/03/25 Unknown History
gram/118 mL enema (Fleet Enema) AFTR DULCOLAX
venlafaxine 150 mg 150 mg PO DAILY Depression 09/03/25 09/03/25 Unknown History
capsule,extended release 24 hr
vitamins A,C,Z-pbhn-ubdbag 2,148 1 tab PO DAILY Supplement 09/03/25 09/03/25 Unknown History
mcg-113 mg-45 mg-17.4 mg tablet
(PreserVision AREDS)
Review of Systems
-
Hematologic/Lymphatic: Other (All 14 systems reviewed and negative except as stated above in the history of present illness.)
Vitals / Labs / Diagnostic Testing
Vital Signs
Temp Pulse Resp BP Pulse Ox
98.1 F 107 22 141/120 100
09/03/25 13:45 09/03/25 13:45 09/03/25 13:45 09/03/25 13:45 09/03/25 13:45
Lab Data
09/03/25 05:55
09/03/25 05:55
Laboratory Results
09/03/25
05:55
APTT 34.7
Microbiology
09/03/25 05:58 Nasal Swab Influenza Types A & B (YESSENIA) - Final
Negative for Influenza A & B, NAAT
Negative results must be combined with clinical observations
and patient history.
Nucleic Acid Amplification test (NAAT)performed on the
[employer] platform.
Diagnostic Testing:
Physical Exam
-
HEENT: Normocephalic
Cardiovascular: S1/S2
Respiratory: Wheeze (Bilateral mild end expiratory wheezing.)
GI: Soft and Non Distended
Neurology: Awake and Alert
Skin: Warm
General: Comfortable
Assessment
-
#1. Acute on chronic hypoxic respiratory failure
- Multifactorial, patient has baseline severe COPD with noted emphysema on imaging along with history of lung cancer, now with acute exacerbation as well as large right-sided pleural effusion with compressive atelectasis
- Continue supplemental O2, target SpO2 more than 90% in view of underlying pulmonary hypertension
- Continue to treat COPD exacerbation, bronchodilators, steroids and antibiotics. Patient reporting improved symptoms postthoracentesis.
#2. Acute on chronic COPD exacerbation, baseline oxygen dependent
- Continue DuoNeb 4 times daily scheduled, initiate budesonide twice daily nebulized. Hold off additional LABA in addition to avoid tachycardia
- Switch to oral prednisone 30 mg daily
- Initiate doxycycline twice daily for 5 days for presumed acute bronchitis
- Additional as needed albuterol on an as needed basis
- Patient continues to smoke as outpatient
#3. 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
- Differential diagnosis also includes pneumonia however post-thoracentesis patient has better lung aeration, more suggestive of compressive atelectasis due to pleural effusion
- Patient reports history of radiation for right upper lobe lung cancer. Reportedly recent imaging as outpatient suggested recurrence of lung cancer which patient is aware and will be following with her oncologist postdischarge
- Discontinue IV vancomycin and Zosyn, initiate doxycycline p.o. for 5 days for COPD exacerbation
- Follow-up on pleural fluid cultures. Blood cultures pending. Influenza A, B screen negative. MRSA screen pending.
#4. Right-sided pleural effusion, concern for malignant effusion
- 09/03, status post IR guided drainage, 850 mL fluid removed, lung reexpanded post-thoracentesis
- Await pleural fluid studies, cultures and cytology
#5. Pulmonary hypertension, severe.
- Pulmonary artery systolic pressure of 77 with moderate tricuspid regurgitation. RV size and function preserved however.
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
- Continue supplemental oxygen, target SpO2 greater than 90%
Other medical diagnoses:
- Wide-complex tachycardia, differential diagnosis includes SVT with aberrancy, multifocal atrial tachycardia versus A-fib/a flutter in the setting of COPD exacerbation
- Mild troponin leak
- Hypertension
- History of CA breast, s/p surgery and radiation. Not on any chemotherapy
- Elevated lactate, since normalized down to 0.8
- Abnormal creatinine, CKD versus LISA.
- Hyperglycemia
- Hypomagnesemia
Total time spent on this consultation/encounter __65__ minutes which includes review of history, physical exam, medications, laboratory data, personal review of imaging, extensive review of outpatient records, discussion with care team and
respiratory therapy.
Data:
ECHO 08/2025: 1. Hyperdynamic left ventricular systolic function. No regional wall motion abnormalities. LVEF 70-75%.
2. Mild to moderate mitral regurgitation.
3. Moderate tricuspid regurgitation.
4. Severely elevated pulmonary artery systolic pressure (77 mmHg).
5. No prior study available for comparison.
CT Chest 08/2025: 1. Moderate right pleural effusion with associated atelectasis and/or pneumonia.
2. Progressed right upper lobe consolidation may reflect a combination of atelectasis/scarring and pneumonia. Cannot rule out superimposed recurrent neoplasm.
3. Scattered prominent mediastinal and probable hilar lymph nodes, likely similar to prior and may be reactive and/or metastatic.
--- NOTE | 2025-09-03 16:32 | PTOTSP ---
Dysphagia Evaluation:
Pt presents w/ acute (acute respiratory failure, possible PNA) and chronic (COPD, lung cancer) risk factors for aspiration/dysphagia. No overt s/sx of aspiration observed during bedside swallow evaluation. It is recommended that pt continued on
Regulars, Thins diet and ST follows up to observe diet level tolerance and determine if instrumental swallow study warranted to objectively rule out silent aspiration.
Recommendations:
1. Regulars, Thins
2. Medications as best tolerated
3. Strategies: Slow rate, single sips/small bites, alternating liquid washes, limit distractions
4. ST to F/U to observe diet level tolerance, pt presentation, and determine if instrumental swallow study warranted to objectively rule out silent aspiration.
--- NOTE | 2025-09-03 16:40 | PTCARENOTE ---
Admitted to 3349, IMU monitors placed. ST w/ PACs on tele, freq non prod cough - high flow o2 started at 50L 80% wean by RT. IVF infusing po diet received. Purewick placed for mod resp distress. Admission completed bedside. Sent to [facility] for
thoracentesis.
Currently back from [facility], breathing feels better transitioned to 2L NC by RT. Denies pain.
[2025-09-03 17:47] LABS: Glucose - Point of Care 231 mg/dl (70-99)
[2025-09-03] MEDS: DELTASONE 30 MG PO (17:50)
[2025-09-03 18:21] LABS: LDH 229 U/L (120-246); Total Protein 6.0 g/dl (6.3-8.2)
[2025-09-03 18:28] LABS: Troponin I 0.188 ng/ml
[2025-09-03] MEDS: PULMICORT 0.5 MG INH (19:17)
[2025-09-03 21:19] LABS: Glucose - Point of Care 182 mg/dl (70-99)
[2025-09-03] MEDS: MELATONIN 3 MG PO (21:22)
[2025-09-03] MEDS: ELIQUIS 2.5 MG PO (21:22)
[2025-09-03] MEDS: LIPITOR 10 MG PO (21:22)
[2025-09-03] MEDS: DESENEX/MITRAZOL/ZEASORB 1 APPLIC TOPICAL (21:22)
[2025-09-03] MEDS: VIBRAMYCIN 100 MG PO (21:22)
[2025-09-03] MEDS: SINGULAIR 10 MG PO (21:22)
[2025-09-03] MEDS: HYDROCORTISONE 2.5% CREAM 1 APPLIC TOPICAL (21:23)
[2025-09-03] MEDS: DITROPAN 5 MG PO (21:23)
--- NOTE | 2025-09-03 22:34 | PTCARENOTE ---
assumed care of pt after change of shift report. pt is aaox3, chatting with staff. Pt on 8L midflow, satting 99%. no current SOB. non productive cough present. assessment as documented. call light in reach.
[2025-09-03] MEDS: NSS IV (23:56)
[2025-09-04] VITALS (10 sets, daily range): BP systolic 104–176; BP diastolic 59–99; BMI 28.2
[2025-09-04 05:01] LABS: Hematocrit 33.3 % (37.0-47.0); Hemoglobin 10.5 g/dL (12.0-16.0); Mean Corp Hgb Conc. 31.5 g/dL (33.0-37.0); Mean Corpuscular Volume 97.1 fL (81.0-99.0); Nucleated Red Blood Cells % 0 %; Platelet Count 251 10^3/uL (130-400); Red Cell Dist. Width 13.5 % (11.5-14.5)
[2025-09-04 05:27] LABS: ALT (SGPT) 28 U/L (0-35); AST (SGOT) 29 U/L (14-36); Albumin 3.1 g/dl (3.5-5.0); Alkaline Phosphatase 68 U/L (38-126); Blood Urea Nitrogen 28 mg/dl (7-17); Calcium 9.3 mg/dl (8.4-10.2); Carbon Dioxide 27 mmol/L (22-30); Chloride 103 mmol/L (98-107); Estimated Creatinine Clearance 34 ml/min; Glucose 154 mg/dl (70-99); Magnesium 1.8 mg/dl (1.6-2.3); Potassium 4.9 mmol/L (3.5-5.1); Sodium 132 mmol/L (135-145); Total Protein 5.7 g/dl (6.3-8.2); eGFR 43.81
[2025-09-04] MEDS: DUONEB 3 ML INH ×4 (07:24→19:19)
[2025-09-04] MEDS: PULMICORT 0.5 MG INH ×2 (07:24→19:19)
[2025-09-04 08:06] LABS: Glucose - Point of Care 165 mg/dl (70-99)
[2025-09-04] MEDS: NOVOLOG FLEXPEN-LOW RESISTANCE SC ×3 (08:10→17:27)
[2025-09-04] MEDS: EFFEXOR XR 150 MG PO (08:34)
[2025-09-04] MEDS: TESSALON PERLES 100 MG PO ×2 (08:34→20:22)
[2025-09-04] MEDS: ELIQUIS 2.5 MG PO (08:34)
[2025-09-04] MEDS: CARDIZEM CD 180 MG PO (08:34)
[2025-09-04] MEDS: DELTASONE 30 MG PO (08:34)
[2025-09-04] MEDS: VIBRAMYCIN 100 MG PO ×2 (08:34→20:22)
[2025-09-04] MEDS: DITROPAN 5 MG PO ×2 (08:35→20:22)
[2025-09-04] MEDS: ZYRTEC 10 MG PO (08:35)
[2025-09-04] MEDS: FEMARA 2.5 MG PO (08:35)
[2025-09-04] MEDS: DESENEX/MITRAZOL/ZEASORB 1 APPLIC TOPICAL ×2 (08:35→20:21)
[2025-09-04] MEDS: VITAMIN D3 (cholecalciferol) 125 MCG PO (08:35)
[2025-09-04] MEDS: HYDROCORTISONE 2.5% CREAM 1 APPLIC TOPICAL ×2 (08:36→20:23)
--- NOTE | 2025-09-04 09:18 | W.PN.UPDATE ---
Update Note
Progress Note Update
I saw and evaluated the patient. I reviewed the resident�s note and agree with findings and plan as documented in the resident�s note.
Patient reports that her shortness of breath is significantly better than yesterday.
Gen: NAD, Awake and alert, appears chronically ill
Eyes: EOMI, PERRLA, no scleral icterus.
Neck: supple.
CV: tachy, irregularly irregular, +S1/S2, no m/r/g.
Resp: B/L exp wheezes
Abd: +BS, soft, NT, ND
Skin: No rashes.
Neuro: CN 2-12 intact, non-focal.
Psych: Normal mood and affect.
CT Chest (w/o contrast) 09/03:
1. Moderate right pleural effusion with associated atelectasis and/or pneumonia.
2. Progressed right upper lobe consolidation may reflect a combination of atelectasis/scarring and pneumonia. Cannot rule out superimposed recurrent neoplasm.
3. Scattered prominent mediastinal and probable hilar lymph nodes, likely similar to prior and may be reactive and/or metastatic.
Echo:
1. Hyperdynamic left ventricular systolic function. No regional wall motion abnormalities. LVEF 70-75%.
2. Mild to moderate mitral regurgitation.
3. Moderate tricuspid regurgitation.
4. Severely elevated pulmonary artery systolic pressure (77 mmHg).
5. No prior study available for comparison.
Acute on chronic hypoxic respiratory failure:
-due to sepsis due to possible/likely PNA, acute COPD Exac, and R pleural effusion
-on 5L NC O2 at baseline, was on high flow on admission, now weaned to 6L midflow
-lactic acidosis POA, now resolved
-imaging above
-appreciate pulm, discussed with pulm
-s/p 09/03 R thoracentesis for 800cc, more than likely exudative and malignant. pH 7.42 but LDH ratio in exudative range. 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
-was on IV Vanco/Zosyn/Decadron, now transitioned to Doxy/Prednisone
WCT (likely SVT with aberrancy), atrial tachy, h/o aflutter:
-s/p CV x 2 in the field for WCT (likely SVT with aberrancy), converted to atrial tachycardia (Wandering atrial pacemaker/MAT)
-monitor on tele
-echo above, notable for severe pulm HTN
-cardiology following, discussed with cardiology
-cont Eliquis (increase dose back to 5mg BID as Cr now 1.2)
-cont cardizem
Essential HTN:
-resume home clonidine/Imdur/Hydralazine
Other problems:
Elevated troponin which is likely nonischemic myocardial injury
Continued tobacco abuse disorder
Considering the patient's advanced age and overwhelming burden of pathology it is reasonable to consult palliative care.
DNR/Heparin
[2025-09-04 09:20] LABS: Glycohemoglobin (HgbA1c) 6.2 % (4.0-5.9)
--- NOTE | 2025-09-04 10:18 | CM ---
I.A: Completed By SETH Coronel.
Patient lives at [facility] for about 9 months, was at [facility] for 3 months, but before that, in her own house for 20 years. Her son sold the home, patient just said, 'he had to', so it seems she needed higher level of care so the home was no
longer needed.
DME:
-Wheelchair
-Oxygen 4-5 liter
-Nebulizer
-Triology machine
Patient does not receive any PT/OT from [facility]. PCP/ Pharmacy via [facility]. PLAN: Return to [facility] when ready- return referral sent.
--- NOTE | 2025-09-04 10:44 | W.PN.HOSP.TC ---
Today's Communication/Plan
-
- discharge patient home pending results of cultures and thoracocentesis
Assessment / Plan
Assessment / Plan
Acute on chronic hypoxic respiratory failure
Acute severe baseline COPD
Status post thoracocentesis day 1 with 800 mL of fluid removed
Pulmonary hypertension
Status post lung cancer with radiation
Reactive leucocytosis:
- Due to severe COPD versus right pleural effusion versus pneumonia
-Moderate right pleural effusion confirmed on
- Patient uses home oxygen between 4 to 5 L, today she is on mid flow 6 L
- Pulmonology was consulted and is following
- Continue patient on oxygen above 90%, DuoNebs every 4 hours, oral prednisone 30 mg, doxycycline twice daily for 5 days for acute bronchitis
- Smoking cessation provided
- Awaiting cytology results from thoracocentesis, blood culture results
- Continue to trend CBC daily
- palliative care consult is placed
Wide complex tachycardia
Hx of atrial fibrillation:
- Cardiology is following
- Monitor on telel
- continue Eliquis and diltiazem
- Echo shows LVEF of 70-35
- Todays rate is 106 and well controlled
Hyperlipidemia:
- continue home lipitor 10 mg
Pre renal Acute kidney injury:
- Creatinine on admission is 1.5 and trending down to 1.2 on admission
- Continue to trend and observe
Normocytic anemia:
- hgb is 10.5 and mcv is normal
- no signs of an acute bleed
- continue to trend cbc daily
Depression:
- continue venlafaxine
- Lisinopril held due to increased creatinine level of 1.5 on admission
Essential Hypertension:
- Continue hydralazine
DNR
Heparin
Anticipated Discharge: Within 24 hours
Subjective/Interval History
-
Date of Service: September 04, 2025
No overnight events
No acute medical complaints
Objective Data
-
Labs:
Laboratory Results
09/04/25
04:34
WBC 14.3 H
Hgb 10.5 L
Hct 33.3 L
Plt Count 251
Sodium 132 L
Potassium 4.9
Chloride 103
Carbon Dioxide 27
BUN 28 H
Creatinine 1.2 H
Glucose 154 H
Calcium 9.3
Total Bilirubin 0.4
AST 29
ALT 28
Alkaline Phosphatase 68
Vital Signs:
Vital Signs
Temp Pulse Resp BP Pulse Ox
98.5 F 106 24 165/89 95
09/04/25 07:31 09/04/25 07:29 09/04/25 07:29 09/04/25 05:01 09/04/25 07:29
I&O
09/03/25 09/04/25 09/05/25
06:59 06:59 06:59
Output Total 1301 / 1301
Balance -1301 / -1301
Review of Systems
-
History Source: Patient
All other systems: Reviewed and negative
Physical Exam
-
General: Conversant
Respiratory: Wheezes (B/L lower lobes of both lungs) and Other (On 4.5 liters oxygen)
Cardiac: Irregular Rhythm and Tachycardic
GI: Soft, Nontender, Nondistended and Normal Bowel Sounds
Musculoskeletal: No Clubbing, No Cyanosis and No Edema
Skin: Warm
Neuro: Awake and AO x 3
Psych: Calm
Data Reviewed
-
Diagnostic Radiology: Report Reviewed by me and Discussed with Physician
CT Scan: Report Reviewed by me and Discussed with Physician
Labs: Labs Reviewed by me and Discussed with Physician
--- NOTE | 2025-09-04 11:08 | CM ---
F/U: SETH Coronel asked Dr. Neely if SETH can arrange transportation back to [facility] tomorrow, but was told to wait so Case Management will f/u tomorrow. SETH Coronel completed IMM and informed Alexus at [facility] of the pending discharge. PLAN: Return
to [facility] when ready.
[2025-09-04 12:04] LABS: Glucose - Point of Care 183 mg/dl (70-99)
[2025-09-04] MEDS: IMDUR (EXTENDED RELEASE) 90 MG PO (12:41)
--- NOTE | 2025-09-04 13:21 | W.PN.PUL3 ---
Today's Communication / Plan
-
- Await pleural fluid cultures and cytology
- Pending additional information from patient's family regarding lung cancer
Assessment
-
Patient is a very pleasant 89-year-old female with history of lung cancer as well as COPD, baseline oxygen dependent, a flutter on Eliquis, who presented to the emergency room via EMS due to worsening shortness of breath over the last few days.
Patient reports increased cough, discoloration of sputum and runny nose over the last few days. Patient started to feel poorly and her current increased wheezing, shortness of breath. EMS was called and patient was noted to be hypoxic and started
on high flow oxygen. And route patient developed wide-complex tachycardia requiring cardioversion x 2. In the emergency room patient was noted to have mild troponin leak. She had a CT chest performed which showed increased opacity in the area of
prior lung cancer concerning for superimposed pneumonia versus progression of disease. In addition patient noted to have moderate right-sided pleural effusion with compressive atelectasis versus pneumonia. Patient was admitted to hospitalist
service and pulmonary consultation was requested for further input regarding abnormal CT chest.
#1. Acute on chronic hypoxic respiratory failure
- Multifactorial, patient has baseline severe COPD with noted emphysema on imaging along with history of lung cancer, now with acute exacerbation as well as large right-sided pleural effusion with compressive atelectasis
- Continue supplemental O2, target SpO2 more than 90% in view of underlying pulmonary hypertension
- Continue to treat COPD exacerbation, bronchodilators, steroids and antibiotics. Patient reporting improved symptoms post-thoracentesis.
#2. Acute on chronic COPD exacerbation, baseline oxygen dependent
- Continue DuoNeb 4 times daily scheduled, and budesonide twice daily nebulized. Hold off additional LABA in addition to avoid tachycardia
- Switch to oral prednisone 30 mg daily
- Initiated doxycycline twice daily for 5 days for presumed acute bronchitis
- Additional as needed albuterol on an as needed basis
- Patient continues to smoke as outpatient
#3. 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
- Differential diagnosis also includes pneumonia however post-thoracentesis patient has better lung aeration, more suggestive of compressive atelectasis due to pleural effusion
- Patient reports history of radiation for right upper lobe lung cancer. Reportedly recent imaging as outpatient suggested recurrence of lung cancer which patient is aware and will be following with her oncologist postdischarge. called patient's
son to obtain additional information, Jordon Hairston at [phone]. He will be contacting his to get additional information
- Discontinued IV vancomycin and Zosyn, continue doxycycline p.o. for 5 days for COPD exacerbation
- Follow-up on pleural fluid cultures. Blood cultures pending. Influenza A, B screen negative. MRSA screen +ve.
#4. Right-sided pleural effusion, concern for malignant effusion
- 09/03, status post IR guided drainage, 850 mL fluid removed, lung reexpanded post-thoracentesis
- Await pleural fluid cultures and cytology
- Exudative by LDH criteria, ratio 0.78. Primarily mononuclear cells.
#5. Pulmonary hypertension, severe.
- Pulmonary artery systolic pressure of 77 with moderate tricuspid regurgitation. RV size and function preserved however.
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
- Continue supplemental oxygen, target SpO2 greater than 90%
Other medical diagnoses:
- Wide-complex tachycardia, differential diagnosis includes SVT with aberrancy, multifocal atrial tachycardia versus A-fib/a flutter in the setting of COPD exacerbation
- Mild troponin leak
- Hypertension
- History of CA breast, s/p surgery and radiation. Not on any chemotherapy
- Elevated lactate, since normalized down to 0.8
- Abnormal creatinine, CKD versus LISA.
- Hyperglycemia
- Hypomagnesemia
Total time spent on this consultation/encounter __45__ minutes which includes review of history, physical exam, medications, laboratory data, personal review of imaging, extensive review of outpatient records, discussion with care team and
respiratory therapy.
Data:
ECHO 08/2025: 1. Hyperdynamic left ventricular systolic function. No regional wall motion abnormalities. LVEF 70-75%.
2. Mild to moderate mitral regurgitation.
3. Moderate tricuspid regurgitation.
4. Severely elevated pulmonary artery systolic pressure (77 mmHg).
5. No prior study available for comparison.
CT Chest 08/2025: 1. Moderate right pleural effusion with associated atelectasis and/or pneumonia.
2. Progressed right upper lobe consolidation may reflect a combination of atelectasis/scarring and pneumonia. Cannot rule out superimposed recurrent neoplasm.
3. Scattered prominent mediastinal and probable hilar lymph nodes, likely similar to prior and may be reactive and/or metastatic.
Subjective Data
-
Date of Service:
Date of Service: September 04, 2025
Subjective:
Patient comfortably lying in bed in no acute distress. Reports feeling better.
Review of Systems
Genitourinary: Other (All 14 systems reviewed and negative except as stated above in the history of present illness.)
Objective Data
Data Reviewed
Vital Signs / I&O / Oxygen:
Vital Signs
Temp Pulse Resp BP Pulse Ox
98.5 F 108 24 165/89 95
09/04/25 07:31 09/04/25 11:46 09/04/25 11:46 09/04/25 05:01 09/04/25 11:46
Intake and Output
09/03/25 09/04/25 09/05/25
06:59 06:59 06:59
Output Total 1301 / 1301
Balance -1301 / -1301
SaO2 95
Nasal Cannula flow liters per 8
minute
Physical Exam
General: Comfortable
HEENT: Normocephalic
Cardiovascular: S1-S2
Respiratory: Wheeze (Faint end expiratory wheezing) and Crackles (Few inspiratory crackles on the right upper lobe)
GI: Soft and Non Distended
Neurology: Awake, Alert and Oriented
Skin: Warm
Labs/Micro/Reports
Lab Data
09/04/25 04:34
09/04/25 04:34
Microbiology
09/03/25 14:06 Pleural Fluid Body Fluid Culture - Preliminary
No Growth After 18-24 Hours
09/03/25 14:06 Pleural Fluid Gram Stain - Preliminary
09/03/25 06:59 Blood/Venous Blood Culture - Preliminary
No Growth in 24 hours- Final report to follow
09/03/25 06:14 Blood/Venous Blood Culture - Preliminary
No Growth in 24 hours- Final report to follow
09/03/25 15:02 Nose Nasal Screen MRSA (PCR) - Final
Staph aureus MRSA
09/03/25 05:58 Nasal Swab Influenza Types A & B (YESSENIA) - Final
Negative for Influenza A & B, NAAT
Negative results must be combined with clinical observations
and patient history.
Nucleic Acid Amplification test (NAAT)performed on the
[employer] platform.
--- NOTE | 2025-09-04 14:18 | W.CON.PAL ---
Consultation
-
Date/Time Consultation Requested: 09/04
Date/Time Consultation Performed: 09/04
Performing Provider: Noa Macedo
Reason for Consult: Goals of Care Discussion
Reason for Admission
Illness Course/HPI
89 year old F with COPD, lung cancer s/p radiation with recent imaging c/f recurrence admitted with sob. On admission found to have R pleural effusion s/p thora, ctyology pending. Initially on high flow 02 but weaning down.
Seen at bedside with no family. Patient with a good understanding about the severity of her illness and also knows there is a concern for recurrent cancer. Had a PET a few months back and wanted another one to asses for any other changes but didnt
get done. Was previously living up in the [facility] then moved down closer to her son. Was in rehab, hoping to not have to stay there. We discussed next steps if cytology shows effusion was malignant - states shes lived a good life and cant live
forever and doesnt want anything aggressive. WOuld be open to hospice if this is the case. Confirmed full code.
Await results and continue discussions.
Objective Data
-
Objective Data:
Vital Signs
Temp Pulse Resp BP Pulse Ox
98.5 F 108 24 165/89 95
09/04/25 07:31 09/04/25 11:46 09/04/25 11:46 09/04/25 05:01 09/04/25 11:46
Laboratory Results
09/04/25 04:34
09/04/25 04:34
APTT 34.7 Sec (23.4-35.0) 09/03/25 05:55
Hemoglobin A1c 6.2 % (4.0-5.9) H 09/04/25 04:34
Total Protein 5.7 g/dl (6.3-8.2) L 09/04/25 04:34
Albumin 3.1 g/dl (3.5-5.0) L 09/04/25 04:34
Palliative Performance Scale
Palliative Performance Scale:
PPS Level Ambulation Activity & Evidence of Disease Self Care Intake Conscious Level
100% Full Normal Activity & Work; Full Intake Full
No Evidence of Disease
90% Full Normal Activity & Work; Full Normal Full
Some Evidence of Disease
80% Full Normal Activity with Effort Full Normal or Full
Some Evidence of Disease Reduced
70% Reduced Unable Normal Job/Work Full Normal or Full
Significant Disease Reduced
60% Reduced Unable Hobby/Housework Occasional Normal or Full or Confusion
Significant Disease Assistance Reduced
50% Mainly Sit/Lie Unable to do Any Work Considerable Normal or Full or Confusion
Extensive Disease Assistance Req'd Reduced
40% Mainly in Bed Unable to do Most Activity Mainly Assistance Normal or Full or Drowsy;
Extensive Disease Reduced +/- Confusion
30% Totally Bed Unable to do Any Activity Total Care Normal or Full or Drowsy;
Bound Extensive Disease Reduced +/- Confusion
20% Totally Bed Bound Unable to do Any Activity Total Care Minimal to Full or Drowsy;
Extensive Disease Sips +/- Confusion
10% Totally Bed Bound Unable to do Any Activity Total Care Mouth Care Drowsy or Coma;
Extensive Disease Only +/- Confusion
0%
PPS Score Level:
Physical Exam
-
General: Comfortable
HEENT: Normocephalic
Respiratory: Accessory Resp Muscle Use
Cardiac: Regular Rhythm
Skin: Warm
Psych: Calm
Assessment / Plan
-
Assessment/Plan:
89 year old F with copd, lung cancer with concern for malignant effusion
- open to hospice if cancer recurrence - unclear where as patient was living in the [facility] then with her son then at rehab
- wants to be able to smoke wherever she goes as this gives her QOL
- await results of cytology and continue discussions
Care Reviewed
Data Reviewed
Chest X ray: Report Reviewed
Medical Tests: I reviewed
Reviewed with: Patient, Family and Physician
--- NOTE | 2025-09-04 15:06 | W.PN.CD ---
Today's Communication / Plan
-
Increase dilt to 240 mg a day and consider going to 360 mg a day in a week or so
Cardiology will sign off
55 min spent carding for patient today
Impression / Plan
-
[id number] hypoxic respiratory failure:
Arrhythmia
- The very rapid wide complex tachycardia could be SVT/AT with aberration given her normal LV/RV systolic function but VT seems more likely given how rapid. No 12 lead available of her tachycardia
- Given her overall medical condition we will treat as if SVT with aberrancy
- History reported of atrial flutter, on Eliquis
Severe pulmonary HTN
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
Non-ischemic myocardial injury in setting of respiratory failure and tachyarrhythmia: LV/RV fine on echo, no CP, peak trop 0.237
HTN => allows more AV dieudonne active dilt => will increase
Acute on chronic COPD
Right effusion
=> Transudate by Lights Criteria I would think, malignancy less likely
=> but given her lung cancer was on the right and treated with XRT, concern for malignancy => path pending
Hx lung cancer: PET/CT 12/2024 => negative
Subjective:
No CP.
Physical Exam
Vital Signs/Labs
Vital Signs
Temp Pulse Resp BP Pulse Ox
98.5 F 108 24 165/89 95
09/04/25 07:31 09/04/25 11:46 09/04/25 11:46 09/04/25 05:01 09/04/25 11:46
09/03/25 09/04/25 09/05/25
06:59 06:59 06:59
Actual Weight 77 kg
09/04/25 04:34
09/04/25 04:34
APTT 34.7 Sec (23.4-35.0) 09/03/25 05:55
Magnesium 1.8 mg/dl (1.6-2.3) 09/04/25 04:34
09/03/25
05:55
[id number] Pept 2720
LAB Results
09/03/25 09/03/25 09/03/25
05:55 11:41 17:46
Troponin I 0.065 H* 0.237 H* D 0.188 H*
Physical Exam
Constitutional: No acute distress
EENT: Anicteric
Cardiovascular: Rhythm & rate is regular and Pedal edema is absent
Respiratory: Respiratory effort normal and Crackles Absent
GI: Soft and Distention absent
Neuro/Psych: Alert
Data Reviewed
-
Date of Service: September 04, 2025
[2025-09-04] MEDS: CATAPRES 0.3 MG PO ×2 (16:26→22:22)
[2025-09-04] MEDS: APRESOLINE 50 MG PO ×2 (16:26→22:22)
[2025-09-04 17:36] LABS: Glucose - Point of Care 225 mg/dl (70-99)
[2025-09-04] MEDS: ELIQUIS 5 MG PO (20:22)
[2025-09-04 21:56] LABS: Glucose - Point of Care 237 mg/dl (70-99)
[2025-09-04] MEDS: LIPITOR 10 MG PO (22:22)
[2025-09-04] MEDS: SINGULAIR 10 MG PO (22:22)
[2025-09-04] MEDS: MELATONIN 3 MG PO (22:22)
[2025-09-05] VITALS (15 sets, daily range): BP systolic 84–150; BP diastolic 44–80; BMI 23.3
[2025-09-05 03:48] LABS: Hematocrit 28.9 % (37.0-47.0); Hemoglobin 9.0 g/dL (12.0-16.0); Mean Corp Hgb Conc. 31.1 g/dL (33.0-37.0); Mean Corpuscular Volume 101.8 fL (81.0-99.0); Nucleated Red Blood Cells % 0 %; Platelet Count 257 10^3/uL (130-400); Red Cell Dist. Width 13.5 % (11.5-14.5)
[2025-09-05 04:03] LABS: ALT (SGPT) 29 U/L (0-35); AST (SGOT) 27 U/L (14-36); Albumin 2.7 g/dl (3.5-5.0); Alkaline Phosphatase 63 U/L (38-126); Blood Urea Nitrogen 35 mg/dl (7-17); Calcium 9.3 mg/dl (8.4-10.2); Carbon Dioxide 26 mmol/L (22-30); Chloride 105 mmol/L (98-107); Estimated Creatinine Clearance 34 ml/min; Glucose 139 mg/dl (70-99); Potassium 4.9 mmol/L (3.5-5.1); Sodium 132 mmol/L (135-145); Total Protein 5.1 g/dl (6.3-8.2); eGFR 43.81
[2025-09-05] MEDS: DUONEB 3 ML INH ×3 (07:39→19:22)
[2025-09-05] MEDS: PULMICORT 0.5 MG INH ×2 (07:39→19:22)
--- NOTE | 2025-09-05 08:00 | PTCARENOTE ---
Received patient after shift handoff. Pt remains AAOx3. On midflow oxygen 5L/min, saturating at 98%. No respiratory distress or SOB observed. Call [facility] within reach.
--- NOTE | 2025-09-05 08:31 | W.PN.UPDATE ---
Update Note
Progress Note Update
I saw and evaluated the patient. I reviewed the resident�s note and agree with findings and plan as documented in the resident�s note.
No new complaints.
Gen: NAD, Awake and alert, appears chronically ill
Eyes: EOMI, PERRLA, no scleral icterus.
Neck: supple.
CV: irregularly irregular, +S1/S2, no m/r/g.
Resp: faint B/L exp wheezes
Abd: +BS, soft, NT, ND
Skin: No rashes.
Neuro: CN 2-12 intact, non-focal.
Psych: Normal mood and affect.
CT Chest (w/o contrast) 09/03:
1. Moderate right pleural effusion with associated atelectasis and/or pneumonia.
2. Progressed right upper lobe consolidation may reflect a combination of atelectasis/scarring and pneumonia. Cannot rule out superimposed recurrent neoplasm.
3. Scattered prominent mediastinal and probable hilar lymph nodes, likely similar to prior and may be reactive and/or metastatic.
Echo:
1. Hyperdynamic left ventricular systolic function. No regional wall motion abnormalities. LVEF 70-75%.
2. Mild to moderate mitral regurgitation.
3. Moderate tricuspid regurgitation.
4. Severely elevated pulmonary artery systolic pressure (77 mmHg).
5. No prior study available for comparison.
Acute on chronic hypoxic respiratory failure:
-due to sepsis due to possible/likely PNA, acute COPD Exac, and R pleural effusion
-on 5L NC O2 at baseline, was on high flow on admission, now weaned to 5L midlfow
-lactic acidosis POA, now resolved
-imaging above
-appreciate pulm, discussed with pulm
-s/p 09/03 R thoracentesis for 800cc, more than likely exudative and malignant. pH 7.42 but LDH ratio in exudative range. 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
-was on IV Vanco/Zosyn/Decadron, now transitioned to Doxy/Prednisone
WCT (likely SVT with aberrancy), atrial tachy, h/o aflutter:
-s/p CV x 2 in the field for WCT (likely SVT with aberrancy), converted to atrial tachycardia (Wandering atrial pacemaker/MAT)
-monitor on tele
-echo above, notable for severe pulm HTN
-cardiology following, discussed with cardiology
-cont Eliquis
-cardizem increased to 240mg daily
Essential HTN:
-cont clonidine/Cardizem
-stop Hydralazine/Imdur
Macrocytic anemia:
-currently no evidence of bleeding
-trend hemoglobin (drop likely dilutional and pt likely has a component of anemia of chronic disease)
-check folate/B12
Other problems:
Elevated troponin which is likely nonischemic myocardial injury
Continued tobacco abuse disorder
Considering the patient's advanced age and overwhelming burden of pathology the pt was seen by palliative care. As per discussion with palliative care the patient reports that she will likely transition to hospice should her pleural effusion be
malignant.
DNR/Heparin
Dispo: Watch BP over the next 24 hours with hypotension O/N and changes to antihypertensive medications today.
[2025-09-05 08:55] LABS: Glucose - Point of Care 126 mg/dl (70-99)
[2025-09-05] MEDS: EFFEXOR XR 150 MG PO (08:57)
[2025-09-05] MEDS: VITAMIN D3 (cholecalciferol) 125 MCG PO (08:57)
[2025-09-05] MEDS: ELIQUIS 5 MG PO ×2 (08:57→21:43)
[2025-09-05] MEDS: DITROPAN 5 MG PO ×2 (08:57→21:42)
[2025-09-05] MEDS: NOVOLOG FLEXPEN-LOW RESISTANCE SC ×2 (08:57→12:53)
[2025-09-05] MEDS: VIBRAMYCIN 100 MG PO ×2 (08:58→21:43)
[2025-09-05] MEDS: CARDIZEM CD 240 MG PO (08:58)
[2025-09-05] MEDS: TESSALON PERLES 100 MG PO ×2 (08:58→21:43)
[2025-09-05] MEDS: CATAPRES 0.3 MG PO ×3 (08:58→21:42)
[2025-09-05] MEDS: FEMARA 2.5 MG PO (08:58)
[2025-09-05] MEDS: ZYRTEC 10 MG PO (08:58)
[2025-09-05] MEDS: DELTASONE 30 MG PO (08:59)
[2025-09-05] MEDS: DESENEX/MITRAZOL/ZEASORB 1 APPLIC TOPICAL ×2 (09:02→21:53)
[2025-09-05] MEDS: APRESOLINE PO (09:03)
[2025-09-05] MEDS: IMDUR (EXTENDED RELEASE) PO (09:03)
[2025-09-05] MEDS: HYDROCORTISONE 2.5% CREAM 1 APPLIC TOPICAL ×2 (09:03→21:44)
--- NOTE | 2025-09-05 09:17 | W.PN.HOSP.TC ---
Today's Communication/Plan
-
Diltiazem was increased from her home 180 mg dose to 240 milligrams daily per cardiology. On the patient follows with cardiology, the dose may be increased to 360 mg pending their reevaluation.
Palliative care talked with the patient regarding hospice, as the pleural effusion may have been malignant, given her history of lung cancer (pending cytology). The patient told them she was open to hospice/will reconsider if the cytology confirms
cancer recurrence.
Patient is staying another day due to SNF availability.
Assessment / Plan
Assessment / Plan
Impression
Ms. Rosi Krueger is a 89-year-old female with past medical history of COPD on home oxygen, 5 L, lung cancer s/p radiation, breast cancer s/p mastectomy, radiation, essential hypertension, atrial fibrillation/flutter, hyperlipidemia, anxiety
disorder, CHF presenting with SOB.
CT Chest (w/o contrast) 09/03:
1. Moderate right pleural effusion with associated atelectasis and/or pneumonia.
2. Progressed right upper lobe consolidation may reflect a combination of atelectasis/scarring and pneumonia. Cannot rule out superimposed recurrent neoplasm.
3. Scattered prominent mediastinal and probable hilar lymph nodes, likely similar to prior and may be reactive and/or metastatic.
Echo:
1. Hyperdynamic left ventricular systolic function. No regional wall motion abnormalities. LVEF 70-75%.
2. Mild to moderate mitral regurgitation.
3. Moderate tricuspid regurgitation.
4. Severely elevated pulmonary artery systolic pressure (77 mmHg).
5. No prior study available for comparison.
Plan
Acute on chronic hypoxic respiratory failure:
-due to sepsis due to possible/likely PNA, acute COPD Exac, and R pleural effusion
-on 5L NC O2 at baseline, was on high flow on admission, now weaned to 6L midflow
-lactic acidosis present on admission, now resolved
-imaging above
-appreciate pulm, discussed with pulm
-s/p 11/13 R thoracentesis for 800cc, more than likely exudative and malignant. pH 7.42 but LDH ratio in exudative range. 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
-was on IV Vanco/Zosyn/Decadron, now transitioned to Doxy/Prednisone
Wide-complex tachycardia (likely SVT with aberrancy), atrial tachy, h/o aflutter:
-s/p CV x 2 in the field for WCT (likely SVT with aberrancy), converted to atrial tachycardia (Wandering atrial pacemaker/MAT)
-monitor on tele
-echo above, notable for severe pulm HTN
-cardiology following, discussed with cardiology
-cont Eliquis (increase dose back to 5mg BID as Cr now 1.2)
-cont cardizem. Increased home Cardizem 180 mg to 240 mg a day. Consider increasing to 360 mg daily in a week per cardiology (outpatient)
Essential HTN:
-resume home clonidine/Imdur/Hydralazine
Pre renal Acute kidney injury:
- Creatinine on admission is 1.5 and trending down to 1.2 on admission
Normocytic anemia:
- hgb is 10.5 and mcv is normal
- no signs of an acute bleed
Depression:
- continue venlafaxine
- Lisinopril held due to increased creatinine level of 1.5 on admission
Other problems:
Elevated troponin which is likely nonischemic myocardial injury
Continued tobacco abuse disorder
Considering the patient's advanced age and overwhelming burden of pathology it is reasonable to consult palliative care.
DNR
Heparin
Anticipated Discharge: Within 24 hours
Subjective/Interval History
-
Date of Service: September 05, 2025
No acute events overnight. The patient had no complaints this morning.
She discussed at length how she was not happy with her care at [facility] and the general treatment/culture around older adults.
Objective Data
-
Labs:
Laboratory Results
09/05/25
03:33
WBC 13.9 H
Hgb 9.0 L
Hct 28.9 L
Plt Count 257
Sodium 132 L
Potassium 4.9
Chloride 105
Carbon Dioxide 26
BUN 35 H
Creatinine 1.2 H
Glucose 139 H
Calcium 9.3
Total Bilirubin 0.3
AST 27
ALT 29
Alkaline Phosphatase 63
Vital Signs:
Vital Signs
Temp Pulse Resp BP Pulse Ox
97.9 F 91 20 133/70 98
09/05/25 03:00 09/05/25 08:58 09/05/25 06:00 09/05/25 08:58 09/05/25 06:00
I&O
09/04/25 09/05/25 09/06/25
06:59 06:59 06:59
Intake Total 720 / 720
Output Total 1301 / 1301 500 / 500
Balance -1301 / -1301 220 / 220
Review of Systems
-
History Source: Patient
All other systems: Reviewed and negative
Physical Exam
-
General: Well Developed, Well Nourished, No Apparent Distress, Comfortable and Conversant
HEENT: Normocephalic, Atraumatic, Anicteric, No Ptosis, Nose Appears Normal and Ears Appear Normal
Respiratory: Wheezes (Diffuse wheezing in all lung frausto)
Cardiac: Regular Rhythm and S1/S2
GI: Soft, Nontender, Nondistended and Normal Bowel Sounds
Musculoskeletal: No Clubbing, No Cyanosis and No Edema
Skin: Warm and Dry
Neuro: Awake and Alert
Psych: Calm
[2025-09-05 11:14] LABS: Glucose - Point of Care 142 mg/dl (70-99)
[2025-09-05] MEDS: DUONEB INH (15:30)
--- NOTE | 2025-09-05 16:22 | W.PN.PUL3 ---
Today's Communication / Plan
-
- Await pleural fluid cultures and cytology
- Pending additional information from patient's family regarding lung cancer
- Continue DuoNebs and Budesonide
- Continue O2 while titrating to keep SpO2 88-95%
Assessment
-
Patient is a very pleasant 89-year-old female with history of lung cancer as well as COPD, baseline oxygen dependent, a flutter on Eliquis, who presented to the emergency room via EMS due to worsening shortness of breath over the last few days.
Patient reports increased cough, discoloration of sputum and runny nose over the last few days. Patient started to feel poorly and her current increased wheezing, shortness of breath. EMS was called and patient was noted to be hypoxic and started
on high flow oxygen. And route patient developed wide-complex tachycardia requiring cardioversion x 2. In the emergency room patient was noted to have mild troponin leak. She had a CT chest performed which showed increased opacity in the area of
prior lung cancer concerning for superimposed pneumonia versus progression of disease. In addition patient noted to have moderate right-sided pleural effusion with compressive atelectasis versus pneumonia. Patient was admitted to hospitalist
service and pulmonary consultation was requested for further input regarding abnormal CT chest.
#1. Acute on chronic hypoxic respiratory failure
- Multifactorial, patient has baseline severe COPD with noted emphysema on imaging along with history of lung cancer, now with acute exacerbation as well as large right-sided pleural effusion with compressive atelectasis
- Continue supplemental O2, target SpO2 more than 90% in view of underlying pulmonary hypertension
- Continue to treat COPD exacerbation, bronchodilators, steroids and antibiotics. Patient reporting improved symptoms post-thoracentesis.
#2. Acute on chronic COPD exacerbation, baseline oxygen dependent
- Continue DuoNeb 4 times daily scheduled, and budesonide twice daily nebulized. Hold off additional LABA in addition to avoid tachycardia
- Switched to oral prednisone 30 mg daily
- Initiated doxycycline twice daily for 5 days for presumed acute bronchitis
- Additional as needed albuterol on an as needed basis
- Patient continues to smoke as outpatient
#3. 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
- Differential diagnosis also includes pneumonia however post-thoracentesis patient has better lung aeration, more suggestive of compressive atelectasis due to pleural effusion
- Patient reports history of radiation for right upper lobe lung cancer. Reportedly recent imaging as outpatient suggested recurrence of lung cancer which patient is aware and will be following with her oncologist postdischarge. Dr. Giraldo called
patient's son to obtain additional information, Jordon Hairston at [phone]. He will be contacting his to get additional information
- Discontinued IV vancomycin and Zosyn, continue doxycycline p.o. for 5 days for COPD exacerbation
- Follow-up on pleural fluid cultures. Blood cultures pending (NGTD). Influenza A, B screen negative. MRSA screen +ve.
#4. Right-sided pleural effusion, concern for malignant effusion
- 09/03, status post IR guided drainage, 800 mL fluid removed, lung reexpanded post-thoracentesis
- Await pleural fluid cultures and cytology
- Exudative by LDH criteria, ratio 0.78. Primarily mononuclear cells.
#5. Pulmonary hypertension, severe.
- Pulmonary artery systolic pressure of 77 with moderate tricuspid regurgitation. RV size and function preserved however.
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
- Continue supplemental oxygen, target SpO2 88% or greater
Other medical diagnoses:
- Wide-complex tachycardia, differential diagnosis includes SVT with aberrancy, multifocal atrial tachycardia versus A-fib/a flutter in the setting of COPD exacerbation
- Mild troponin leak
- Hypertension
- History of CA breast, s/p surgery and radiation. Not on any chemotherapy
- Elevated lactate, since normalized down to 0.8
- Abnormal creatinine, CKD versus LISA.
- Hyperglycemia
- Hypomagnesemia
Total time spent today was 38 minute for this encounter. Time includes reviewing laboratory tests/imaging results, reviewing pertinent medical records, obtaining and reviewing medical history, performing an appropriate physical exam, ordering
medications, tests and procedures. Time also includes documentation of this encounter, coordinating patient care and communicating with other healthcare professionals. Total time does not include separately billed tests or procedures performed on
this date of service.
Data:
ECHO 08/2025: 1. Hyperdynamic left ventricular systolic function. No regional wall motion abnormalities. LVEF 70-75%.
2. Mild to moderate mitral regurgitation.
3. Moderate tricuspid regurgitation.
4. Severely elevated pulmonary artery systolic pressure (77 mmHg).
5. No prior study available for comparison.
CT Chest 08/2025: 1. Moderate right pleural effusion with associated atelectasis and/or pneumonia.
2. Progressed right upper lobe consolidation may reflect a combination of atelectasis/scarring and pneumonia. Cannot rule out superimposed recurrent neoplasm.
3. Scattered prominent mediastinal and probable hilar lymph nodes, likely similar to prior and may be reactive and/or metastatic.
Subjective Data
-
Date of Service:
Date of Service: September 05, 2025
Chief Complaint: Pulmonary Follow Up
Subjective:
Patient was seen and evaluated this morning (late note entry). No acute events reported from overnight. She remains afebrile.
Review of Systems
General: Other (Negative unless mentioned above)
Objective Data
Data Reviewed
Vital Signs / I&O / Oxygen:
Vital Signs
Temp Pulse Resp BP Pulse Ox
97.9 F 91 20 133/70 99
09/05/25 03:00 09/05/25 08:58 09/05/25 06:00 09/05/25 08:58 09/05/25 08:00
Intake and Output
09/04/25 09/05/25 09/06/25
06:59 06:59 06:59
Intake Total 720 / 720
Output Total 1301 / 1301 500 / 500
Balance -1301 / -1301 220 / 220
SaO2 99
Nasal Cannula flow liters per 5
minute
Physical Exam
General: Respiratory Distress (negative) and Comfortable
HEENT: Normocephalic and Anicteric
Cardiovascular: S1-S2 and Peripheral Edema (negative)
Respiratory: Wheeze (Faint end expiratory wheezing), Crackles (Few inspiratory crackles on the right upper lobe), Rhonchi (negative) and Non-Labored Respirations
GI: Soft, Non Distended, Non Tender and Normal Bowel Sounds
Neurology: Awake, Alert, Oriented and Tremors (negative)
Skin: Warm, Dry, Cyanosis (negative) and Jaundice (negative)
Labs/Micro/Reports
Lab Data
09/05/25 03:33
09/05/25 03:33
Microbiology
09/03/25 06:59 Blood/Venous Blood Culture - Preliminary
No Growth in 48 hours- Final report to follow
09/03/25 06:14 Blood/Venous Blood Culture - Preliminary
No Growth in 48 hours- Final report to follow
09/03/25 14:06 Pleural Fluid Body Fluid Culture - Preliminary
No Growth After 18-24 Hours
09/03/25 14:06 Pleural Fluid Gram Stain - Preliminary
09/03/25 15:02 Nose Nasal Screen MRSA (PCR) - Final
Staph aureus MRSA
09/03/25 05:58 Nasal Swab Influenza Types A & B (YESSENIA) - Final
Negative for Influenza A & B, NAAT
Negative results must be combined with clinical observations
and patient history.
Nucleic Acid Amplification test (NAAT)performed on the
[employer] platform.
[2025-09-05 17:29] LABS: Glucose - Point of Care 170 mg/dl (70-99)
[2025-09-05] MEDS: NOVOLOG FLEXPEN-LOW RESISTANCE 1 UNITS SC (17:35)
[2025-09-05] MEDS: LIPITOR 10 MG PO (21:43)
[2025-09-05] MEDS: SINGULAIR 10 MG PO (21:43)
[2025-09-05] MEDS: MELATONIN 3 MG PO (21:44)
[2025-09-05 22:02] LABS: Glucose - Point of Care 153 mg/dl (70-99)
[2025-09-06 03:47] VITALS: BP 130/63
[2025-09-06 06:56] LABS: Hematocrit 30.9 % (37.0-47.0); Hemoglobin 9.7 g/dL (12.0-16.0); Mean Corp Hgb Conc. 31.4 g/dL (33.0-37.0); Mean Corpuscular Volume 100.7 fL (81.0-99.0); Platelet Count 272 10^3/uL (130-400); Red Cell Dist. Width 13.4 % (11.5-14.5)
[2025-09-06 07:00] VITALS: BP 135/62
[2025-09-06 07:18] LABS: Blood Urea Nitrogen 34 mg/dl (7-17); Calcium 9.7 mg/dl (8.4-10.2); Carbon Dioxide 26 mmol/L (22-30); Chloride 103 mmol/L (98-107); Estimated Creatinine Clearance 32 ml/min; Glucose 102 mg/dl (70-99); Potassium 4.6 mmol/L (3.5-5.1); Sodium 134 mmol/L (135-145); eGFR 48.63
[2025-09-06] MEDS: PULMICORT 0.5 MG INH (07:37)
[2025-09-06] MEDS: DUONEB 3 ML INH (07:37)
[2025-09-06 08:28] LABS: Glucose - Point of Care 110 mg/dl (70-99)
[2025-09-06] MEDS: NOVOLOG FLEXPEN-LOW RESISTANCE SC ×2 (08:29→12:16)
[2025-09-06] MEDS: DESENEX/MITRAZOL/ZEASORB 1 APPLIC TOPICAL (08:30)
[2025-09-06] MEDS: DITROPAN 5 MG PO (08:31)
[2025-09-06] MEDS: CARDIZEM CD 240 MG PO (08:31)
[2025-09-06] MEDS: HYDROCORTISONE 2.5% CREAM 1 APPLIC TOPICAL (08:31)
[2025-09-06] MEDS: DELTASONE 30 MG PO (08:31)
[2025-09-06] MEDS: VIBRAMYCIN 100 MG PO (08:31)
[2025-09-06] MEDS: ELIQUIS 5 MG PO (08:32)
[2025-09-06] MEDS: ZYRTEC 10 MG PO (08:32)
[2025-09-06] MEDS: CATAPRES 0.3 MG PO (08:32)
[2025-09-06] MEDS: VITAMIN D3 (cholecalciferol) 125 MCG PO (08:32)
[2025-09-06] MEDS: TESSALON PERLES 100 MG PO (08:32)
[2025-09-06] MEDS: FEMARA 2.5 MG PO (08:32)
[2025-09-06] MEDS: EFFEXOR XR 150 MG PO (08:32)
--- NOTE | 2025-09-06 08:45 | W.PN.HOSP.TC ---
Today's Communication/Plan
-
Provided calcium carbonate for acid reflux like symptoms.
Discharged today
Assessment / Plan
Assessment / Plan
Impression
Ms. Rosi Krueger is a 89-year-old female with past medical history of COPD on home oxygen, 5 L, lung cancer s/p radiation, breast cancer s/p mastectomy, radiation, essential hypertension, atrial fibrillation/flutter, hyperlipidemia, anxiety
disorder, CHF presenting with SOB.
CT Chest (w/o contrast) 09/03:
1. Moderate right pleural effusion with associated atelectasis and/or pneumonia.
2. Progressed right upper lobe consolidation may reflect a combination of atelectasis/scarring and pneumonia. Cannot rule out superimposed recurrent neoplasm.
3. Scattered prominent mediastinal and probable hilar lymph nodes, likely similar to prior and may be reactive and/or metastatic.
Echo 09/03/2025:
1. Hyperdynamic left ventricular systolic function. No regional wall motion abnormalities. LVEF 70-75%.
2. Mild to moderate mitral regurgitation.
3. Moderate tricuspid regurgitation.
4. Severely elevated pulmonary artery systolic pressure (77 mmHg).
5. No prior study available for comparison.
Plan
Acute on chronic hypoxic respiratory failure:
-due to sepsis due to possible/likely PNA, acute COPD Exac, and R pleural effusion
-on 5L NC O2 at baseline, was on high flow on admission, now weaned to 6L midflow
-lactic acidosis present on admission, now resolved
-imaging above
-appreciate pulm, discussed with pulm
-s/p 09/03 R thoracentesis for 800cc, more than likely exudative and malignant. pH 7.42 but LDH ratio in exudative range. 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
-was on IV Vanco/Zosyn/Decadron, now transitioned to Doxy/Prednisone
Wide-complex tachycardia (likely SVT with aberrancy), atrial tachy, h/o aflutter:
-s/p CV x 2 in the field for WCT (likely SVT with aberrancy), converted to atrial tachycardia (Wandering atrial pacemaker/MAT)
-monitor on tele
-echo above, notable for severe pulm HTN
-cardiology following, discussed with cardiology
-cont Eliquis (increase dose back to 5mg BID as Cr now 1.2)
-cont cardizem. Increased home Cardizem 180 mg to 240 mg a day. Consider increasing to 360 mg daily in a week per cardiology (outpatient)
�Provided calcium carbonate trial for chest pain that sounded like acid reflux
Essential HTN:
-resume home clonidine/Imdur/Hydralazine
- Lisinopril held due to increased creatinine level of 1.5 on admission
Pre renal Acute kidney injury:
- Creatinine on admission is 1.5 and trending down to 1.1
Normocytic anemia:
- hgb is 10.5 and mcv is normal
- no signs of an acute bleed
Depression:
- continue venlafaxine
Other problems:
Elevated troponin which is likely nonischemic myocardial injury
Continued tobacco abuse disorder
Considering the patient's advanced age and overwhelming burden of pathology it is reasonable to consult palliative care.
DNR
Heparin
Anticipated Discharge: Today
Subjective/Interval History
-
Date of Service: September 06, 2025
No acute events overnight. Patient appeared anxious and more easily frustrated this morning. After the conversation, the cause seems to be that the patient wants to stay at this hospital for the comfort/amenities/care compared to the SNF she is
returning to. Patient was stating she wanted to stay to hear about the results of the pleural fluid cytology, which she said a provider anticipated would result tomorrow. She was reassured that her PCP is responsible for following up on pending
results, that she can ask her SNF staff for the results regularly, and that she can sign up in the patient portal to view the results.
She also brought up pain in the middle of her chest, that she denies is cardiac when I said that we can work that up with a EKG and troponin. She states she has no pain anymore.
She also stated that she is worried about her painless heart problem recurring that she received cardioversion for in the ambulance. She says she did not know what the cause of her heart problem was. It was explained to her she has an arrhythmia
that is being treated with diltiazem.
Later, she stated that she really wanted to stay in the hospital, because she prefers the food, respect, and patient care here compared to her SNF. 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
that, because she was fine with [facility].
Objective Data
-
Labs:
Laboratory Results
09/06/25
06:22
WBC 10.0
Hgb 9.7 L
Hct 30.9 L
Plt Count 272
Sodium 134 L
Potassium 4.6
Chloride 103
Carbon Dioxide 26
BUN 34 H
Creatinine 1.1 H
Glucose 102 H
Calcium 9.7
Vital Signs:
Vital Signs
Temp Pulse Resp BP Pulse Ox
97.8 F 76 16 135/62 95
09/06/25 07:00 09/06/25 07:39 09/06/25 07:39 09/06/25 07:00 09/06/25 07:39
I&O
09/05/25 09/06/25 09/07/25
06:59 06:59 06:59
Intake Total 720 / 720 640 / 640
Output Total 500 / 500
Balance 220 / 220 640 / 640
Review of Systems
-
History Source: Patient
All other systems: Reviewed and negative
Physical Exam
-
General: Well Developed, Well Nourished, No Apparent Distress, Comfortable and Conversant
HEENT: Normocephalic, Atraumatic, Moist Mucous Membranes, Anicteric, No Ptosis, Nose Appears Normal and Ears Appear Normal
Respiratory: Wheezes
Cardiac: Regular Rhythm and S1/S2
GI: Soft, Nontender, Nondistended and Normal Bowel Sounds
Musculoskeletal: No Clubbing and No Cyanosis
Skin: Warm and Dry
Neuro: Awake and Alert
Psych: Calm, Agitated and Anxious
--- NOTE | 2025-09-06 09:24 | W.PN.UPDATE ---
Update Note
Progress Note Update
I saw and evaluated the patient. I reviewed the resident�s note and agree with findings and plan as documented in the resident�s note.
c/o nausea after 'eating something.'
Gen: NAD, Awake and alert, appears chronically ill
Eyes: EOMI, PERRLA, no scleral icterus.
Neck: supple.
CV: RRR, +S1/S2, no m/r/g.
Resp: CTAB anteriorly
Abd: remains +BS, soft, NT, ND
Skin: No rashes.
Neuro: CN 2-12 intact, non-focal.
Psych: Normal mood and affect.
CT Chest (w/o contrast) 09/03:
1. Moderate right pleural effusion with associated atelectasis and/or pneumonia.
2. Progressed right upper lobe consolidation may reflect a combination of atelectasis/scarring and pneumonia. Cannot rule out superimposed recurrent neoplasm.
3. Scattered prominent mediastinal and probable hilar lymph nodes, likely similar to prior and may be reactive and/or metastatic.
Echo:
1. Hyperdynamic left ventricular systolic function. No regional wall motion abnormalities. LVEF 70-75%.
2. Mild to moderate mitral regurgitation.
3. Moderate tricuspid regurgitation.
4. Severely elevated pulmonary artery systolic pressure (77 mmHg).
5. No prior study available for comparison.
Acute on chronic hypoxic respiratory failure:
-due to sepsis due to possible/likely PNA (vs bronchitis), acute COPD Exac, and R pleural effusion
-on 5L NC O2 at baseline, was on high flow on admission, now weaned to 5L midlfow
-lactic acidosis POA, now resolved
-imaging above
-appreciate pulm
-s/p 09/03 R thoracentesis for 800cc, more than likely exudative and malignant. pH 7.42 but LDH ratio in exudative range. 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
-was on IV Vanco/Zosyn/Decadron, now transitioned to Doxy (to complete 5 days)/Prednisone taper to home dose to 10mg daily
WCT (likely SVT with aberrancy), atrial tachy, h/o aflutter:
-s/p CV x 2 in the field for WCT (likely SVT with aberrancy), converted to atrial tachycardia (Wandering atrial pacemaker/MAT)
-was monitored on tele
-echo above, notable for severe pulm HTN
-cardiology saw in c/s
-cont Eliquis
-cardizem increased to 240mg daily
Essential HTN:
-cont clonidine/Cardizem
-Hydralazine/Imdur stopped
Macrocytic anemia:
-currently no evidence of bleeding
-trend hemoglobin (drop likely dilutional and pt likely has a component of anemia of chronic disease)
-check folate/B12
Other problems:
Elevated troponin which is likely nonischemic myocardial injury
Continued tobacco abuse disorder
Considering the patient's advanced age and overwhelming burden of pathology the pt was seen by palliative care. As per discussion with palliative care the patient reports that she will likely transition to hospice should her pleural effusion be
malignant.
DNR/Heparin
Medically cleared for d/c.
Total time spent on d/c = 35 min. This included today's physical exam, progress note, review of laboratory and diagnostic data, preparation of discharge documents and prescriptions, and discussions about the pt's hospital course and discharge plan
with the patient and other director medical involved in the patient's care.
[2025-09-06 11:23] VITALS: BP 126/76
--- NOTE | 2025-09-06 11:28 | CM ---
CM reviewed chart, patient seen bedside, for d/c today.
Patient will require ambulance transport, scheduled for 2:30 p.m. return to [facility].
[facility], liaison aware of patient return.
IMM verbally reviewed, provided with copy, placed in chart. left for patients son, Jordon, per patient request.
CM will continue to follow for all d/c needs.
Plan; return to [facility], 2:30 p.m. ambulance transport
[facility]
Report: [phone]
[2025-09-06] MEDS: DUONEB INH ×2 (11:54→14:57)
[2025-09-06 12:12] LABS: Glucose - Point of Care 154 mg/dl (70-99)
[2025-09-06 14:27] VITALS: BP 133/70
--- NOTE | 2025-09-06 16:48 | W.PN.PUL3 ---
Today's Communication / Plan
-
- Await pleural fluid cultures and cytology
- Continue DuoNebs and Budesonide
- Prednisone taper back to her home dose of 10mg daily
- Continue O2 while titrating to keep SpO2 89-95%
Patient is being prepared for discharge back to [facility]. No additional recommendations at this time. Pulmonary service will now sign off. Please reconsult if there are any additional questions/concerns, or if patient's respiratory status
deteriorates.
Assessment
-
Patient is a very pleasant 89-year-old female with history of lung cancer as well as COPD, baseline oxygen dependent, a flutter on Eliquis, who presented to the emergency room via EMS due to worsening shortness of breath over the last few days.
Patient reports increased cough, discoloration of sputum and runny nose over the last few days. Patient started to feel poorly and her current increased wheezing, shortness of breath. EMS was called and patient was noted to be hypoxic and started
on high flow oxygen. And route patient developed wide-complex tachycardia requiring cardioversion x 2. In the emergency room patient was noted to have mild troponin leak. She had a CT chest performed which showed increased opacity in the area of
prior lung cancer concerning for superimposed pneumonia versus progression of disease. In addition patient noted to have moderate right-sided pleural effusion with compressive atelectasis versus pneumonia. Patient was admitted to hospitalist
service and pulmonary consultation was requested for further input regarding abnormal CT chest.
#1. Acute on chronic hypoxic respiratory failure
- Multifactorial, patient has baseline severe COPD with noted emphysema on imaging along with history of lung cancer, now with acute exacerbation as well as large right-sided pleural effusion with compressive atelectasis
- Continue supplemental O2, target SpO2 89% or greater in view of underlying pulmonary hypertension
- Continue to treat COPD exacerbation, bronchodilators, steroids and antibiotics. Patient reporting improved symptoms post-thoracentesis.
#2. Acute on chronic COPD exacerbation, baseline oxygen dependent
- Continue DuoNeb 4 times daily scheduled, and budesonide twice daily nebulized. Hold off additional LABA in addition to avoid tachycardia
- Switched to oral prednisone 30 mg daily - continue to wean down by 10mg every 4th day until back to her home dose of 10mg daily
- Initiated doxycycline twice daily for 5 days for presumed acute bronchitis
- Additional as needed albuterol on an as needed basis
- Patient continues to smoke as outpatient, as it makes her happy
#3. 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
- Differential diagnosis also includes pneumonia however post-thoracentesis patient has better lung aeration, more suggestive of compressive atelectasis due to pleural effusion
- Patient reports history of radiation for right upper lobe lung cancer. Reportedly recent imaging as outpatient suggested recurrence of lung cancer which patient is aware and will be following with her oncologist postdischarge. Dr. Giraldo called
patient's son to obtain additional information, Jordon Hairston at [phone]. He will be contacting his to get additional information
- Discontinued IV vancomycin and Zosyn, continue doxycycline p.o. for 5 days for COPD exacerbation
- Follow-up on pleural fluid cultures. Blood cultures show NGTD. Influenza A, B screen negative. MRSA screen +ve.
#4. Right-sided pleural effusion, concern for malignant effusion
- 09/03, status post IR guided drainage, 800 mL fluid removed, lung reexpanded post-thoracentesis
- Await pleural fluid cultures and cytology
- Exudative by LDH criteria, ratio 0.78. Primarily mononuclear cells.
#5. Pulmonary hypertension, severe.
- Pulmonary artery systolic pressure of 77 with moderate tricuspid regurgitation. RV size and function preserved however.
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
- Continue supplemental oxygen, target SpO2 89% or greater
Other medical diagnoses:
- Wide-complex tachycardia, differential diagnosis includes SVT with aberrancy, multifocal atrial tachycardia versus A-fib/a flutter in the setting of COPD exacerbation
- Mild troponin leak
- Hypertension
- History of CA breast, s/p surgery and radiation. Not on any chemotherapy
- Elevated lactate, since normalized down to 0.8
- Abnormal creatinine, CKD versus LISA.
- Hyperglycemia
- Hypomagnesemia
Patient is being prepared for discharge back to [facility]. No additional recommendations at this time. Pulmonary service will now sign off. Thank you for allowing us to be involved in the care of this patient. Please reconsult if there are any
additional questions/concerns, or if patient's respiratory status deteriorates.
Total time spent today was 41 minute for this encounter. Time includes reviewing laboratory tests/imaging results, reviewing pertinent medical records, obtaining and reviewing medical history, performing an appropriate physical exam, ordering
medications, tests and procedures. Time also includes documentation of this encounter, coordinating patient care and communicating with other healthcare professionals. Total time does not include separately billed tests or procedures performed on
this date of service.
Data:
ECHO 08/2025: 1. Hyperdynamic left ventricular systolic function. No regional wall motion abnormalities. LVEF 70-75%.
2. Mild to moderate mitral regurgitation.
3. Moderate tricuspid regurgitation.
4. Severely elevated pulmonary artery systolic pressure (77 mmHg).
5. No prior study available for comparison.
CT Chest 08/2025: 1. Moderate right pleural effusion with associated atelectasis and/or pneumonia.
2. Progressed right upper lobe consolidation may reflect a combination of atelectasis/scarring and pneumonia. Cannot rule out superimposed recurrent neoplasm.
3. Scattered prominent mediastinal and probable hilar lymph nodes, likely similar to prior and may be reactive and/or metastatic.
Subjective Data
-
Date of Service:
Date of Service: September 06, 2025
Chief Complaint: Pulmonary Follow Up
Subjective:
Patient seen and evaluated this morning. Currently on 5 L/min nasal cannula. No acute events reported from overnight. She is being discharged today back to her longterm.
Review of Systems
General: Other (Negative unless mentioned above)
Objective Data
Data Reviewed
Vital Signs / I&O / Oxygen:
Vital Signs
Temp Pulse Resp BP Pulse Ox
97.8 F 76 16 135/62 95
09/06/25 07:00 09/06/25 07:39 09/06/25 07:39 09/06/25 07:00 09/06/25 07:39
Intake and Output
09/05/25 09/06/25 09/07/25
06:59 06:59 06:59
Intake Total 720 / 720 640 / 640
Output Total 500 / 500
Balance 220 / 220 640 / 640
SaO2 95
Nasal Cannula flow liters per 5
minute
Physical Exam
General: Respiratory Distress (negative) and Comfortable
HEENT: Normocephalic and Anicteric
Cardiovascular: S1-S2, Peripheral Edema (negative) and Other (Distant heart sounds)
Respiratory: Wheeze ([place] upon expiration in the mid lung frausto bilaterally), Crackles (negative), Rhonchi (negative) and Non-Labored Respirations
GI: Soft, Non Distended, Non Tender and Normal Bowel Sounds
Neurology: Awake, Alert, Oriented and Tremors (negative)
Skin: Warm, Dry, Cyanosis (negative) and Jaundice (negative)
Labs/Micro/Reports
Lab Data
09/06/25 06:22
09/06/25 06:22
Microbiology
09/03/25 06:59 Blood/Venous Blood Culture - Preliminary
No Growth in 72 hours- Final report to follow
09/03/25 06:14 Blood/Venous Blood Culture - Preliminary
No Growth in 72 hours- Final report to follow
09/03/25 14:06 Pleural Fluid Body Fluid Culture - Preliminary
No Growth After 48 Hours
09/03/25 14:06 Pleural Fluid Gram Stain - Preliminary
09/03/25 15:02 Nose Nasal Screen MRSA (PCR) - Final
Staph aureus MRSA
09/03/25 05:58 Nasal Swab Influenza Types A & B (YESSENIA) - Final
Negative for Influenza A & B, NAAT
Negative results must be combined with clinical observations
and patient history.
Nucleic Acid Amplification test (NAAT)performed on the
[employer] ID NOW platform.
--- NOTE | 2025-09-06 22:04 | W.DCSUMMARY ---
Discharge Summary
Discharge Data
Date of Admission: 09/03/25
Date of Discharge: 09/06/25
-
Pending Results: Yes
Hospital Course
Discharging Physician : Dr. Demetrio Neely and Dr. Lola Jimenez
Disposition : [facility]
Primary care physician : Unknown
Principal Discharge diagnosis : Acute on chronic hypoxic respiratory failure, Acute severe baseline COPD, Pulmonary hypertension, S/P thoracocentesis with 800 cc of fluid removed, wide complex tachycardia, pre renal acute kidney injury
Chronic Discharge diagnosis : Hyperlipidemia, Normocytic anemia, Anxiety/Depression, Essential hypertension, breast cancer
Hospital Course : 89-year-old female with a history of lung cancer presented to the ER reporting shortness of breath. Patient has a past medical history of atrial flutter on Eliquis, COPD on 5 L home oxygen, lung cancer, CHF, anxiety/depression.
Problem #1:
Acute on chronic hypoxic respiratory failure
Acute severe baseline COPD ( on home 5 L oxygen)
Status post thoracocentesis (09/03/25) with 800 mL of fluid removed
Pulmonary hypertension
Status post lung cancer with radiation
- Patient presented to the ER from [facility] on 09/03/2025 for shortness of breath for 4 days. Labs on admission show white count 14.4, hemoglobin 11.2, BUNs/creatinine�22/1.5, glucose 248, sodium 130. Lactate�2.1, magnesium�1.5.
Troponin�0.065. On 5 liters nasal cannula highflow on admission. Blood cultures ordered and later negative. Influenza test negative. Significant imaging on admission includes a Chest CT which shows moderate right sided pleural effusion with
atelectasis and/or pneumonia, progressing right upper right lobe consolidation, and scattered prominent mediastinal/ hilar lymph nodes. Pulmonology consulted. On 09/03/25 she got thoracocentesis which removed 800 cc of fluid, exudative by LDH
criteria, ratio 0.78, still awaiting pleural fluid cultures and cytology. Lungs reexpanded post thoracocentesis and she was weaned from high flow to 5 L oxygen midflow. Initially on empiric IV vancomycin/ Zosyn but then transitioned to Doxycycline
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 Duonebs, budesonide inhaled, albuterol, and oral prednisone 30 mg, oxygen at a level of 88-92% during hospital course to help control shortness of breath and wheezing. Palliative care
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 On
discharge, continue Doxycycline dose ending on 09/05/2025, finish prednisone taper, and continue budesonide treatment. Follow up with PCP in less than 5 days for repeat CBC and CMP.
Problem #2:
wide complex tachycardia ( likely SVT with aberrancy)
Atrial tachycardia
H/o Atrial flutter
- On the way to hospital in the ambulance, patient s/p cardioversion x 2 for WCT (likely SVT with aberrancy), converted to atrial tachycardia ([place] atrial pacemaker/MAT). First EkG on admission showed atrial tachycardia and second ekg on
admission showed sinus tachycardia with supraventricular complexes. Echocardiogram on admission showed LVEF of 70-75% and severely elevated pulmonary systolic pressure. Cardiology was consulted. Continued patient on Eliquis and increased her home
dose Cardizem from 180 mg to 240 mg a day. Follow up with cardiology in 1 week for evaluation and to consider increasing dose to 360 mg.
Problem #3:
Essential Hypertension
Pre renal acute kidney injury
- Patients blood pressure on discharge is 133/70 mmhg and well controlled. Continue Clonidine / Cardizem on discharge. Patients Hydralazine , Imdur, stopped on discharge due to patients underlying pulmonary hypertension. Patients creatinine on
presentation is 1.5 and so we held lisinopril. Creatinine on discharge is 1.1. Hold lisinopril on discharge until patient is seen by PCP. CMP in 1 week with PCP.
Problem #4: Hyperlipemia
- Continue home dose atorvastatin on discharge
Problem #5: Anxiety/depression:
- Continue home dose venlafaxine on discharge
Problem #6: Breast Cancer:
- continue home dose letrozole
Problem #7: Macrocytic anemia:
- hemoglobin is 9.7 on discharge with MCV of 100.7. No signs of active bleeding. Follow up CBC with PCP in less then 5 days.
Important imaging findings :
Chest CT is 09/03/25:
IMPRESSION:
1. Moderate right pleural effusion with associated atelectasis and/or pneumonia.
2. Progressed right upper lobe consolidation may reflect a combination of atelectasis/scarring and pneumonia. Cannot rule out superimposed recurrent neoplasm.
3. Scattered prominent mediastinal and probable hilar lymph nodes, likely similar to prior and may be reactive and/or metastatic.
1st EKG on 09/03/25
Test Reason : TACHY
Blood Pressure : */* mmHG
Vent. Rate : 157 BPM Atrial Rate : * BPM
P-R Int : * ms QRS Dur : 116 ms
QT Int : 256 ms P-R-T Axes : * 126 9 degrees
QTcB Int : 413 ms
Critical Test Result: High HR
SUPRAVENTRICULAR TACHYCARDIA likely atrial tachycardia
INCOMPLETE RIGHT BUNDLE BRANCH BLOCK
RIGHT VENTRICULAR HYPERTROPHY
ABNORMAL ECG
NO PREVIOUS ECGS AVAILABLE
2nd EKG on 09/03/25:
Test Reason : TACHY
Blood Pressure : */* mmHG
Vent. Rate : 125 BPM Atrial Rate : 125 BPM
P-R Int : 138 ms QRS Dur : 90 ms
QT Int : 320 ms P-R-T Axes : 34 101 21 degrees
QTcB Int : 461 ms
SINUS TACHYCARDIA WITH PREMATURE SUPRAVENTRICULAR COMPLEXES
RIGHTWARD AXIS
BORDERLINE ECG
WHEN COMPARED WITH ECG OF 03-Sep-2025 05:48,
PREMATURE SUPRAVENTRICULAR COMPLEXES ARE NOW PRESENT
INCOMPLETE RIGHT BUNDLE BRANCH BLOCK IS NO LONGER PRESENT
Procedure findings :
Thoracocentesis on 09/03/25:
IMPRESSION: Successful ultrasound-guided thoracentesis, yielding 800 cc of clear gold pleural fluid.
Discharge Plan
-
Patient Disposition: [facility]sp/SNF
Discharge Diagnosis/Procedures: Acute on chronic hypoxic respiratory failure
Acute severe baseline COPD
Status post thoracocentesis day 1 with 800 mL of fluid removed
Pulmonary hypertension
Status post lung cancer with radiation
Reactive leucocytosis
Wide complex tachycardia
Hx of atrial fibrillation
Hyperlipidemia
Pre renal acute kidney injury
Normocytic anemia
Depression
Condition: Fair
Diet: Low Cholesterol and 2 Gram Sodium
Activity: As tolerated
Driving Restrictions: As prior to admission
Bathing Restrictions: None
Blood Work: CBC and CMP 1 week with PCP
Referrals:
Hari Bentley MD [Active, Cardiology] - in one week
Referral Note: Wide-complex tachycardia, likely SVT with aberrancy, history of atrial flutter. Possible Cardizem increase
UNKNOWN - PT DOES,NOT KNOW [Family Provider] - in less than 1 week
Additional Discharge Medication Instructions: For COPD exacerbation, please finish your course of doxycycline twice daily for 5 days, ending on 09/08/2020 AM (1 dose on the last day). Please also take a prednisone taper of 20 mg for 2 days,
followed by 10 mg for 2 days.
For your heart rhythm abnormality, please take diltiazem at a higher dose of 240 mg/day. 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
Antacid was provided for possible acid reflux.
Prescriptions:
New
diltiazem HCl 240 mg Capsule,Extended Release 24hr
240 mg PO DAILY Qty: 30 0RF
doxycycline hyclate 100 mg Capsule
100 mg PO Q12 Qty: 4 0RF
calcium carbonate [Calcium Antacid] 200 mg calcium (500 mg) Tablet,Chewable
200 mg PO Q6HPRN PRN (Reason: gerd) Qty: 5 0RF
prednisone 10 mg Tablet
10 mg PO DIRECTED Qty: 6 0RF
Rx Instructions:
For prednisone taper, take 20 mg for 2 days, then 10 mg for 2 days.
budesonide 0.5 mg/2 mL Suspension For Nebulization
0.5 mg inhalation R BID Qty: 0 0RF
Continued
atorvastatin 10 mg Tablet
10 mg PO HS
oxybutynin chloride 10 mg Tablet Extended Release 24hr
10 mg PO DAILY
benzonatate 200 mg Capsule
200 mg PO HS
alendronate 70 mg Tablet
70 mg PO MO
clonidine HCl 0.3 mg Tablet
0.3 mg PO TID
venlafaxine 150 mg Capsule,Extended Release 24hr
150 mg PO DAILY
benzonatate 100 mg Capsule
100 mg PO BID
montelukast 10 mg Tablet
10 mg PO HS
letrozole 2.5 mg Tablet
2.5 mg PO DAILY
albuterol sulfate 90 mcg/actuation Hfa Aerosol Inhaler
2 puff INHALATION R Q4HPRN PRN (Reason: SOB)
Rx Instructions:
2 puffs
fluticasone propionate 50 mcg/actuation [place],Suspension
1 spray INTRANASAL BID
levocetirizine 5 mg Tablet
5 mg PO DAILY
Eliquis 5 mg Tablet
5 mg PO BID
fluticasone propion-salmeterol [Advair Diskus] 250-50 mcg/dose Blister With Device
1 inh INHALATION R BID
acetaminophen [Tylenol] 325 mg Tablet
650 mg PO Q6HPRN PRN (Reason: MILD PAIN)
ipratropium-albuterol 0.5 mg-3 mg(2.5 mg base)/3 mL Solution For Nebulization
3 ml INHALATION R Q6HPRN PRN (Reason: SOB)
fexofenadine 60 mg Tablet
60 mg PO BIDPRN PRN (Reason: ALLERGIES)
ondansetron HCl 4 mg Tablet
4 mg PO Q8HPRN PRN (Reason: NAUSEA)
melatonin 3 mg Tablet
3 mg PO HS
guaifenesin [Luz-Tussin] 100 mg/5 mL Liquid
200 mg PO Q6HPRN PRN (Reason: COUGH)
magnesium hydroxide [Milk of Magnesia] 400 mg/5 mL Suspension
2,400 mg PO [id number] PRN (Reason: CONSTIPATION)
bisacodyl [Dulcolax (bisacodyl)] 10 mg Suppository
10 mg TN DAILYPRN PRN (Reason: IF NO BM AFTR MOM)
Fleet Enema 19-7 gram/118 mL Enema
118 ml TN DAILYPRN PRN (Reason: IF NO BM AFTR DULCOLAX)
hydrocortisone 2.5 % Cream
1 applic TOPICAL BID
hydroxyzine HCl 25 mg Tablet
25 mg PO BIDPRN PRN (Reason: ITCHING)
cholecalciferol (vitamin D3) [Vitamin D3] 125 mcg (5,000 unit) Tablet
125 mcg PO DAILY
PreserVision AREDS 2,148 mcg-113 mg-45 mg-17.4mg Tablet
1 tab PO DAILY
Biofreeze (menthol) 4 % Gel
1 applic TOPICAL BID
guaifenesin [Mucinex] 600 mg Tablet Extended Release 12hr
600 mg PO BID
Pataday Once Daily Relief 0.7 % Drops
1 drp BOTH EYES BID
prednisone 10 mg Tablet
10 mg PO DAILY Qty: 1 0RF
Rx Instructions:
resume this dose after your prednisone taper completes
Discontinued
isosorbide mononitrate 30 mg Tablet Extended Release 24 Hr
90 mg PO DAILY
hydralazine 50 mg Tablet
50 mg PO TID
levofloxacin 750 mg Tablet
750 mg PO DAILY
Rx Instructions:
FOR 7 DAYS STARTING 09/02/25
lisinopril 40 mg Tablet
40 mg PO DAILY
diltiazem HCl [Cardizem LA] 180 mg Tablet Extended Release 24 Hr
180 mg PO DAILY
Discharge Orders:
Discharge Patient (As Directed); Ordered 09/06/25
Ordered By: Demetrio Neely
Discharge Date and Time
Discharge Date/Time: 09/06/25 14:58
Print Language: WELSH
== END 2025-09-06 14:58 | DRG 871 ==
LOC: 4 WEST ACU 09:01
PROVIDERS: Emergency Medicine; Nurse Practitioner; Radiology Vascular & Interventional Radiology; Student in an Organized Health Care Education/Training Program; ADMITTING PHYSICIAN Internal Medicine; CONSULT PHYSICIAN Internal Medicine; CONSULT PHYSICIAN Nurse Practitioner Gerontology; CONSULT PHYSICIAN Student in an Organized Health Care Education/Training Program; EMERGENCY PHYSICIAN Emergency Medicine
PROC: 0W993ZZ Drainage of Right Pleural Cavity, Percutaneous Approach (ICD-10-PCS; 2025-09-03)
PROC: 5A0935A Assistance with Respiratory Ventilation, Less than 24 Consecutive Hours, High Flow/Velocity Cannula (ICD-10-PCS; 2025-09-03)
DX: A41.89 Other specified sepsis (principal); J18.0 Bronchopneumonia, unspecified organism; J96.21 Acute and chronic respiratory failure with hypoxia; I48.92 Unspecified atrial flutter; I47.19 Other supraventricular tachycardia; J44.1 Chronic obstructive pulmonary disease with (acute) exacerbation; J44.0 Chronic obstructive pulmonary disease with (acute) lower respiratory infection; J98.11 Atelectasis; I5A Non-ischemic myocardial injury (non-traumatic); N17.9 Acute kidney failure, unspecified; E87.20 Acidosis, unspecified; R65.20 Severe sepsis without septic shock; J43.9 Emphysema, unspecified; F17.210 Nicotine dependence, cigarettes, uncomplicated; F41.9 Anxiety disorder, unspecified; I11.0 Hypertensive heart disease with heart failure; I48.91 Unspecified atrial fibrillation; F32.A Depression, unspecified; I49.1 Atrial premature depolarization; I27.20 Pulmonary hypertension, unspecified; J31.0 Chronic rhinitis; I07.1 Rheumatic tricuspid insufficiency; E83.42 Hypomagnesemia; R73.9 Hyperglycemia, unspecified; I34.0 Nonrheumatic mitral (valve) insufficiency; I45.10 Unspecified right bundle-branch block; J20.9 Acute bronchitis, unspecified; Z66 Do not resuscitate; Z99.81 Dependence on supplemental oxygen; Z79.01 Long term (current) use of anticoagulants; Z79.51 Long term (current) use of inhaled steroids; Z79.52 Long term (current) use of systemic steroids; Z90.10 Acquired absence of unspecified breast and nipple; Z88.0 Allergy status to penicillin; Z88.2 Allergy status to sulfonamides; Z88.8 Allergy status to other drugs, medicaments and biological substances; Z91.018 Allergy to other foods; Z79.811 Long term (current) use of aromatase inhibitors; Z85.3 Personal history of malignant neoplasm of breast; Z92.3 Personal history of irradiation; Z11.52 Encounter for screening for COVID-19; Z79.899 Other long term (current) drug therapy; Z79.83 Long term (current) use of bisphosphonates; Z85.118 Personal history of other malignant neoplasm of bronchus and lung
CPT/HCPCS: 32555; 71045; 71250; 80048; 80053; 82945; 82962; 83036; 83605; 83615; 83735; 83880; 83986; 84155; 84157; 84443; 84478; 84484; 85025; 85027; 85730; 87015; 87040; 87070; 87116; 87205; 87502; 87641; 87811; 88112; 88305; 88341; 88342; 88360; 89051; 92526; 92610; 93005; 93306; 94640; 96374; 96375; 99291

== ENCOUNTER 2025-09-22 18:18 | Inpatient (IN) | payer MEDICARE, OTHER, MEDICAID, SELFPAY ==
[2025-09-22 16:54] VITALS: BP 158/56; BMI 23.3
--- NOTE | 2025-09-22 17:12 | ED.GENMED ---
History of Present Illness
General
Chief Complaint: Breathing Problem
Source: records and ambulance crew
Time Seen by Provider: 09/22/25 17:05
History of Present Illness
History of Present Illness:
89-year-old female with extensive cardiopulmonary past medical history presenting to the ER via EMS from [facility] for evaluation of increased work of breathing and hypoxia with oxygen saturation in the low 70s at [facility]. Patient
states that she always feels short of breath but this started to get worse maybe around 1 week ago. She is unaware of any fevers. Currently denying any pain. Denies any lower extremity edema. No other concerns.
Past History
Past History
ED Past Medical History: Arrthythmia, Asthma, Cancer, COPD, HTN, Hypercholesterolemia and Valvular disease
ED Past Surgical History: Appendectomy, Orthopedic and Other
Social History
Tobacco: Former smoker
Alcohol: None
Drug: None
Personal: Single
Living: long-term
Review of Systems
Review of Systems
All Other Systems: ROS reviewed and negative except as documented in HPI and ROS
Phy Exam
Physical Exam
Physical Exam:
GENERAL: Alert , in no apparent distress
HEAD: Normocephalic atraumatic
EYE: conjunctiva clear
NECK: Supple
ENT: o/p clr, mmm.
CARDIAC: Regular rate and rhythm
LUNGS: Generalized expiratory wheezing, very diminished lung sounds right mid lung to base
NEUROLOGICAL: Alert and oriented
SKIN: Warm and dry, skin intact.
MUSCULOSKELETAL: well perfused.
PSYCH: Normal and appropriate interaction.
Scores
Heart Failure Risk
Heart Failure Risk Score: Yes
History of Stroke or TIA: No
History of intubation for respiratory distress: No
Heart rate on ED arrival >/= 110: No
SaO2 <90% on arrival on room air: Yes
HR >/=110 during 3min walk test (or too ill to perform test): Yes
ECG has acute ischemic changes: No
Urea >/=12mmol/L (BUN 33.6mg/dL): No
Serum CO2>/=35mmol/L: No
Troponin I or T elevated to SD Level (0.4mg/dL): No
NT-proBNP >/=5,000ng/L (5,000pg/ml): No
HF Risk Score: 3
Admission Status: HIGH RISK 15.9% Consider SNF treatment or admission to hospital
Heart Score for Chest Pain Patients
STEMI patient?: Not applicable
Withdrawal Assessment of Alcohol
Withdrawal Assessment Completed?: Not applicable
Sepsis
Sepsis Screening
Sepsis Assessment: Sepsis
Sepsis Screen
Sepsis Screen: Sepsis
Date: 09/22/25
Time: 21:50
Course
Orders/Labs/Results
Orders:
Orders
09/22/25 Dinner
Cholesterol Lowering
Cholesterol Lowering: Sodium, 2 Gram
09/22/25 16:57
EKG [Electrocardiogram (*1)] Urgent
Reason for Study: Tachycardia
EKG- Treatment ONCE
09/22/25 17:04
Complete Blood Count/With Diff Urgent
Comprehensive Metabolic Panel Urgent
NT-proBNP Urgent
Troponin I Urgent
09/22/25 17:11
Albuterol Sulfate [Ventolin Nebules] 10 mg INH R NOW STA
09/22/25 17:12
CR Chest Portable - 1 View Urgent
Comment:
Reason For Exam: SOB, hypoxia
Reason Study Needs to be Portable: Patient Unstable
09/22/25 17:23
Venous Blood Gas Urgent
%Oxygen/Room Air: 93 6L NC
09/22/25 17:29
Cefepime HCl [Maxipime] 2,000 mg IV NOW STA
09/22/25 17:30
CT Chest W/o Iv Contrast Urgent
Comment:
Reason For Exam: respiratory failure,right sided pneumonia/effusion
09/22/25 17:50
Sterile Water [Sterile Water For Injection] 10 ml .ROUTE .STK-MED ONE
09/22/25 17:59
COVID-19 Antigen Urgent
Source: Nasal Swab
Lactic Acid Q4H
Comment: CANCEL 2nd LACTIC ACID IF 1st LACTIC ACID IS LESS THAN 2
Blood Culture Q30M
DARRYL Source: Blood/Venous
Specimen Description:
Blood Culture Q30M
DARRYL Source: Blood/Venous
Specimen Description:
Influenza A+B Rapid Molecular Urgent
DARRYL Source: Nasal Swab
Specimen Description:
09/22/25 18:00
Admit/Transfer Patient As Directed
Co-Sign Provider:
Level of Care: Inpatient admission
Assign to:: Telemetry
Physician / Group: roverto
Diagnosis: hypoxemic respiratory failure
Reason for Telemetry: Pulmonary Edema
Date to Stop Telemetry: 09/25/25
Time to Stop Telemetry: 11:00
Reason for Hospitalization: hypoxemic respiratory failure
Expected length of stay greater than two midnights?: Yes
ELOS- Estimated Length of Stay in days: 2
I certify the patient meets the requirements for IP care: Yes
PRN Pain Medication Management As Directed
May give lesser potent ordered pain med per pt: Yes
preference::
Protocol:: Medication orders for pain may be administered in a
manner that supports deferring to patient preference
when the pt is:
- Requesting an ordered lesser potent pain medication.
Least to most potent pain medications are defined
as: acetaminophen < NSAID < tramadol < opioids
(morphine, oxycodone, hydromorphone).
- Requesting a lesser dose of the same medication IF
ORDERED.
- Requesting a less intrusive route of administration
if both routes are prescribed by the provider (PO <
IV).
09/22/25 18:01
Code Status As Directed
Resuscitation Status: Full Code
09/22/25 18:13
Vancomycin [Vancocin] 1,500 mg 0.9% Sodium Chloride 500 ml [Nss] 500 ml IV NOW
09/22/25 20:50
Acetaminophen [Tylenol] 650 mg PO Q4HPRN PRN
Ipratropium/Albuterol Sulfate [Duoneb] 3 ml INH R QID
VANCOMYCIN Pharmacy to Dose [VANCOCIN Pharmacy to Dose] 1 each Pharmacy To Prepare [Call Pharmacy To Prepare] 0 ml IV PER PROTOCOL
09/22/25 20:50
VTE Contraindication Routine
VTE Mechanical Device Contraindication: Medical Contraindication
Pharmocologic Contraindication: Medical Contraindication
Activity As Directed
Activity Level: As Tolerated
Vital Signs As Directed
Frequency: Per unit guidelines
09/23/25 06:00
Complete Blood Count/With Diff IN AM
Comprehensive Metabolic Panel IN AM
Cefepime HCl [Maxipime] 2,000 mg IV Q12H
09/25/25 11:00
DC Protocol for Telemetry ONCE
Abnormal Lab Results
09/22/25 09/22/25
17:04 17:23
WBC 14.0 H 10^3/uL
(4.8-10.8)
RBC 3.36 L 10^6/uL
(4.20-5.40)
Hgb 10.4 L g/dL
(12.0-16.0)
Hct 31.1 L %
(37.0-47.0)
Abs Immat Gran (auto) 0.1 H 10^3/uL
(0-0.05)
Absolute Neuts (auto) 12.0 H 10^3/uL
(1.4-6.5)
Absolute Lymphs (auto) 0.5 L 10^3/uL
(1.2-3.4)
Absolute Monos (auto) 1.4 H 10^3/uL
(0.1-0.6)
Neutrophils % 85.5 H %
(42.2-75.2)
Lymphocytes % 3.6 L %
(20.5-51.1)
Monocytes % 9.8 H %
(1.7-9.3)
VBG pO2 83 H mmHg
(30-50)
VBG HCO3 27.9 H mmol/L
(22-27)
Sodium 128 L mmol/L
(135-145)
Chloride 95 L mmol/L
(98-107)
BUN 18 H mg/dl
(7-17)
Glucose 107 H mg/dl
(70-99)
AST 46 H U/L
(14-36)
Alkaline Phosphatase 143 H U/L
(38-126)
Total Protein 5.7 L g/dl
(6.3-8.2)
Albumin 3.0 L g/dl
(3.5-5.0)
09/22/25 17:04
09/22/25 17:04
Vital Signs
Initial and Last Documented VS:
Initial Vital Signs
Temp Pulse Resp BP Pulse Ox
98.2 F 94 24 158/56 76
09/22/25 16:54 09/22/25 16:54 09/22/25 16:54 09/22/25 16:54 09/22/25 16:54
Last Documented Vital Signs
Temp Pulse Resp BP Pulse Ox
99.6 F 101 22 139/70 90
09/22/25 21:27 09/22/25 21:27 09/22/25 21:27 09/22/25 21:27 09/22/25 21:27
MDM/Problems Addressed
Differential Diagnosis Includes:
COPD exacerbation
Pneumonia
CHF
Less concern for ACS
PTX
Malignancy
MDM/Problems Addressed:
89-year-old female presenting to the ER with EMS for evaluation of respiratory failure after her long-term care facility noticed her labored breathing and oxygen saturation in the low 70s. EMS did provide the patient with a DuoNeb and 10 mg of
Decadron with slight improvement of her oxygen saturation. Normally on 2 L, currently on 6 L with saturation between 92 and 94%. Will treat with an hour-long nebulizer. Labs, lactic and cultures ordered. Disposition is anticipated admission.
Chronic conditions affecting care: COPD
Acute Exacerbation and/or Progression of Chronic Illness: COPD
*Radiology
Radiology exam reviewed: preliminary read by ED provider (Large right-sided effusion versus consolidation)
*Pulse Oximetry
SaO2: 92
Nasal Cannula flow liters per minute: 6
Oxygen Mode of Delivery: Room air
Patient hypoxic: yes
*Hanger Off Interpretation
Rate: tachycardiac
Heart Rate: 100
Rhythm: sinus
*Critical Care Note
Total Time (30-74mins, 75-104mins- exclusive of procedures): 35
comment:
Critical care statement: A total of 35 minutes of critical care time was provided for this patient. This includes management of unstable vital signs, evaluation of the patient at bedside, reviewing the patient's pertinent medical records, discussion
with consultants, review of old EKGs and review of pertinent medical records. This time with separate from time utilized to perform the aforementioned documented procedures
Data Reviewed
Review of Other/Old Records Reveals: Labs, Records and Discharge Summary
Patient Management
Discussion with other providers: Hospitalist
Escalation/DeEscalation of care consider admission/obs:
Patient CT findings as noted:
Significant increase in dense opacification centrally in the right chest at least in part suggesting atelectasis/volume loss, possible accompanying MALIGNANCY, evaluation overall markedly limited without intravenous contrast. Additional increase in
moderate right pleural effusion.
No pneumothorax or left pleural effusion. Mild mediastinal lymphadenopathy.
Patient was given vancomycin and Maxipime for possible hospital-acquired pneumonia. Lactic acid within normal limits. Hospitalist team accepts for continued evaluation and treatment
ED Attending Note
-
Portions of this chart may have been created with voice recognition software.� Occasional wrong word or��sound alike� substitutions may have occurred due to the inherent limitations of voice recognition software.
Discharge Plan
Departure
Patient Disposition: Admit
Date of Disposition: 09/22/25
Time of Disposition: 17:51
Presentation/result/management discussed w/ accepting MD/DO: Hospitalist
Discharge Problem:
Respiratory failure, Pleural effusion, Acute exacerbation of chronic obstructive pulmonary disease
Interventions
Interventions:
*Risk Screen - Suicide Last Done: 09/22/25 16:54
*General Assessment Last Done: 09/22/25 16:54
*Neglect/Abuse Screening Last Done: 09/22/25 16:54
*ED COVID-19 Vaccine History Last Done: 09/22/25 16:54
*ED Influenza Vaccine History Last Done: 09/22/25 16:54
[facility] Fall Risk Assessment Tool Last Done: 09/22/25 17:02
*Nursing Disposition Last Done: 09/22/25 20:35
ED- Cardiac Assessment Last Done: 09/22/25 17:06
ED- Pulmonary Assessment Last Done: 09/22/25 17:06
Discharge Date and Time
Discharge Date/Time: 09/22/25 20:42
[2025-09-22] MEDS: VENTOLIN NEBULES 10 MG INH (17:15)
[2025-09-22 17:25] LABS: Hematocrit 31.1 % (37.0-47.0); Hemoglobin 10.4 g/dL (12.0-16.0); Mean Corp Hgb Conc. 33.4 g/dL (33.0-37.0); Mean Corpuscular Volume 92.6 fL (81.0-99.0); Nucleated Red Blood Cells % 0 %; Platelet Count 290 10^3/uL (130-400); Red Cell Dist. Width 13.4 % (11.5-14.5)
[2025-09-22 17:37] LABS: Venous Blood Gas B.E. 3.0 mmol/L (-4 to +4); Venous Blood Gas O2 Sat % 97.4 %
[2025-09-22 17:42] LABS: ALT (SGPT) 35 U/L (0-35); AST (SGOT) 46 U/L (14-36); Albumin 3.0 g/dl (3.5-5.0); Alkaline Phosphatase 143 U/L (38-126); Blood Urea Nitrogen 18 mg/dl (7-17); Calcium 9.7 mg/dl (8.4-10.2); Carbon Dioxide 29 mmol/L (22-30); Chloride 95 mmol/L (98-107); Estimated Creatinine Clearance 36 ml/min; Glucose 107 mg/dl (70-99); Potassium 4.5 mmol/L (3.5-5.1); Sodium 128 mmol/L (135-145); Total Protein 5.7 g/dl (6.3-8.2); eGFR 54.53
[2025-09-22 18:00] VITALS: BP 149/59
--- NOTE | 2025-09-22 18:04 | HPS.HSE ---
Addendum entered and electronically signed by Matias Richmond MD 09/22/25 21:34:
CT chest shows significantly increased and dense opacification central in the right chest suggesting atelectasis/volume loss, possibly accompanying malignancy. Additionally increased to moderate right pleural effusion..
IR consulted for thoracentesis. Fluid studies ordered.
Addendum entered and electronically signed by Matias Richmond MD 09/22/25 20:28:
Patient had 10 beats of asymptomatic Vtach.
Correction- Patient DNR/DNI.
Original Note:
Family Physician
-
Family Physician: Michelle Drake
Chief Complaint
-
shortness of breath
History of Present Illness
89-year-old female past medical history of chronic hypoxic respite failure, COPD on 5 L oxygen, lung cancer status post radiation, breast cancer status post mastectomy/radiation, hypertension, atrial fibrillation/flutter, pulmonary hypertension,
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 She was hypoxemic to 70%. She has
chronic cough at baseline. Has been having chills but denies fever. Denies any sore throat or runny nose. Complains of some edema in the legs. Unsure about weight gain. She has been using her inhalers at home. Denies any chest pain
Patient always feels short of breath but this got worse around a week ago. She denies fever. Denies any lower extremity edema.
She smokes 6 cigarettes a day. Denies alcohol.
Medical History
Past Medical History
Past Medical History: Reports Other (chronic hypoxic respite failure, COPD on 5 L oxygen, lung cancer status post radiation, breast cancer status post mastectomy/radiation, hypertension, atrial fibrillation/flutter, pulmonary hypertension,
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
Past Surgical History: Reports None
Social History
Tobacco: Smoker
Alcohol: None
Drug: None
Family History
Family History: Not pertinent
Allergies / Home Medications
Allergies reflects when Allergies were last updated in [employer].
Home Medications with original date entered in [employer]
Allergy/Medication List:
Allergies
Allergy/AdvReac Type Severity Reaction Status Date / Time
Sulfa (Sulfonamide Allergy Intermediate Rash Verified 09/22/25 17:03
Antibiotics)
Penicillins Allergy Mild Rash Verified 09/22/25 17:03
strawberry Allergy Mild Rash Verified 09/22/25 17:03
hydrochlorothiazide Allergy Unknown Rash Verified 09/22/25 17:03
codeine AdvReac Unknown Unknown Verified 09/22/25 17:03
Home Medications
acetaminophen 325 mg tablet (Tylenol) 650 mg PO Q6HPRN PRN MILD PAIN 09/03/25
albuterol sulfate 90 mcg/actuation aerosol inhaler 2 puff inhalation R Q4HPRN PRN SOB 09/03/25
alendronate 70 mg tablet 70 mg PO MO bone health 09/03/25
apixaban 5 mg tablet (Eliquis) 5 mg PO BID Blood Clot Prevention/Tx 09/03/25
atorvastatin 10 mg tablet 10 mg PO HS High Cholesterol 09/03/25
benzonatate 100 mg capsule 100 mg PO BID cough 09/03/25
benzonatate 200 mg capsule 200 mg PO HS cough 09/03/25
bisacodyl 10 mg rectal suppository (Dulcolax (bisacodyl)) 10 mg AK DAILYPRN PRN IF NO BM AFTR MOM 09/03/25
cholecalciferol (vitamin D3) 125 mcg (5,000 unit) tablet (Vitamin D3) 125 mcg PO DAILY Supplement 09/03/25
clonidine HCl 0.3 mg tablet 0.3 mg PO TID Blood Pressure 09/03/25
fexofenadine 60 mg tablet 60 mg PO BIDPRN PRN ALLERGIES 09/03/25
fluticasone 250 mcg-salmeterol 50 mcg/dose blistr powdr for inhalation (Advair Diskus) 1 inh inhalation R BID Lung/Breathing Issues 09/03/25
fluticasone propionate 50 mcg/actuation nasal spray,suspension 1 spray intranasal BID allergic rhinitis 09/03/25
guaifenesin 100 mg/5 mL oral liquid (Luz-Tussin) 200 mg PO Q6HPRN PRN COUGH 09/03/25
guaifenesin 600 mg tablet, extended release 12 hr (Mucinex) 600 mg PO BID Congestion 09/03/25
hydrocortisone 2.5 % topical cream 1 applic topical BID RASH 09/03/25
hydroxyzine HCl 25 mg tablet 25 mg PO BIDPRN PRN ITCHING 09/03/25
ipratropium 0.5 mg-albuterol 3 mg (2.5 mg base)/3 mL nebulization soln 3 ml inhalation R Q6HPRN PRN SOB 09/03/25
letrozole 2.5 mg tablet 2.5 mg PO DAILY Cancer 09/03/25
levocetirizine 5 mg tablet 5 mg PO DAILY allergies 09/03/25
magnesium hydroxide 400 mg/5 mL oral suspension (Milk of Magnesia) 2,400 mg PO [id number] PRN CONSTIPATION 09/03/25
melatonin 3 mg tablet 3 mg PO HS Sleep 09/03/25
menthol 4 % topical gel (Biofreeze (menthol)) 1 applic topical BID LEFT HIP/LOWER BACK 09/03/25
montelukast 10 mg tablet 10 mg PO HS Lung/Breathing Issues 09/03/25
olopatadine 0.7 % eye drops (Pataday Once Daily Relief) 1 drp BOTH EYES BID Eye Condition 09/03/25
ondansetron HCl 4 mg tablet 4 mg PO Q8HPRN PRN NAUSEA 09/03/25
oxybutynin chloride 10 mg tablet,extended release 24 hr 10 mg PO DAILY overactive bladder 09/03/25
sodium phosphates 19 gram-7 gram/118 mL enema (Fleet Enema) 118 ml AK DAILYPRN PRN IF NO BM AFTR DULCOLAX 09/03/25
venlafaxine 150 mg capsule,extended release 24 hr 150 mg PO DAILY Depression 09/03/25
vitamins A,C,R-zfij-rxubez 2,148 mcg-113 mg-45 mg-17.4 mg tablet (PreserVision AREDS) 1 tab PO DAILY Supplement 09/03/25
diltiazem HCl 240 mg capsule,extended release 24 hr 240 mg PO DAILY #30 caps 09/05/25
budesonide 0.5 mg/2 mL suspension for nebulization 0.5 mg (2 mL) inhalation R BID #0 mL 09/06/25
calcium carbonate (Calcium Antacid) 200 mg PO Q6HPRN PRN gerd #5 tabs 09/06/25
doxycycline hyclate 100 mg capsule 100 mg PO Q12 Anti-inflammatory #4 caps 09/06/25
prednisone 10 mg tablet 10 mg PO DIRECTED Anti-inflammatory #6 tabs 09/06/25
prednisone 10 mg tablet 10 mg PO DAILY anti-inflammation #1 tab 09/06/25
Review of Systems
-
History Source: Patient
A 12 point ROS was completed and negative except as noted: Yes
Constitutional: Reports No Symptoms
EENT: Reports No Symptoms
Respiratory: Reports See HPI
Cardiac: Reports No Symptoms
Abdomen/GI: Reports No Symptoms
: Reports No Symptoms
Musculoskeletal: Reports No Symptoms
Skin: Reports No Symptoms
Neurological: Reports No Symptoms
Endocrine: Reports No Symptoms
Hematologic/Lymphatic: Reports No Symptoms
Psych: Reports No Symptoms
Physical Exam
Vital Signs
Vital Signs
Temp Pulse Resp BP Pulse Ox
98.2 F 103 21 158/56 92
09/22/25 16:54 09/22/25 17:04 09/22/25 17:04 09/22/25 16:54 09/22/25 17:13
Physical Exam
General: Well Developed, Well Nourished and No Apparent Distress
HEENT: NormoCephalic, Moist mucous membranes and Atraumatic
Respiratory: Clear
Cardiac: S1/S2 and Regular Rhythm; No Murmur or Rub
GI: Soft, Non Tender, Non Distended and Normal Bowel Sounds; No Organomegaly
Rectal: Deferred by Provider
Musculoskeletal: No Clubbing, No Cyanosis and No Edema
Skin: No Rash
Neuro: Nonfocal/grossly intact
Laboratory Results
-
09/22/25 17:04
09/22/25 17:04
Laboratory Results
Total Bilirubin 0.8 mg/dl (0.2-1.3) 09/22/25 17:04
AST 46 U/L (14-36) H 09/22/25 17:04
ALT 35 U/L (0-35) 09/22/25 17:04
Alkaline Phosphatase 143 U/L (38-126) H 09/22/25 17:04
Data Reviewed
-
Lab Data: Labs Reviewed by me
Old Records: Reviewed
Impression/Plan
-
IMPRESSION:
PLAN:
# Acute on chronic hypoxemic respiratory failure secondary to moderate to large right pleural effusion/possible parapneumonic versus secondary to right heart failure from pulmonary hypertension
-Currently 6 L oxygen
- Chest x-ray shows marked progression of opacification involving the lower half of the right hemithorax suggesting moderate to large right pleural effusion with likely accompanying atelectasis/volume loss
- Leukocytosis
- Cannot rule out underlying pneumonia
- CT chest pending
- Blood cultures
- Vancomycin/cefepime empirically
- Check lactic acid, cardiac BNP, troponin
- Not clinically septic
- Hold off IV fluids
Chronic hypoxemic respite failure/COPD on 5 L baseline
- DuoNebs every 6 hours
- Continue montelukast
# Slight worsening of chronic hyponatremia
- Sodium 128
Lung cancer status post radiation
Breast cancer status postmastectomy/radiation
- Continue letrozole
Essential hypertension
Atrial fibrillation/flutter
- Continue diltiazem
- Continue Eliquis
Wide-complex tachycardia/SVT with a Feng C
History of atrial flutter
Pulmonary hypertension
Hyperlipidemia
- Continue statin
Anxiety
Chronic macrocytic anemia
- Baseline
Osteoporosis
Active smoker
Full code
DVT prophylaxis�Eliquis
Regular diet
[2025-09-22 18:08] LABS: Troponin I 0.016 ng/ml
[2025-09-22] MEDS: MAXIPIME 2000 MG IV (18:10)
[2025-09-22] MEDS: VANCOCIN 530 MG IV (18:42)
[2025-09-22 18:44] LABS: COVID-19 Antigen Negative (Negative)
[2025-09-22 19:00] VITALS: BP 149/58
[2025-09-22 20:00] VITALS: BP 144/56
[2025-09-22] MEDS: DUONEB 3 ML INH (21:08)
[2025-09-22 21:27] VITALS: BP 139/70; BMI 23.8
--- NOTE | 2025-09-22 21:51 | PHA.VAN.IN ---
Assessment
- Assessment
Renal Function: Other (SCR appears lower from baseline.)
Concomitant Antimicrobials: CEFEPIME
Plan
- Plan
Initial / Loading Dose: VANCOMYCIN 1500 MG IV ~ 184
Maintenance Regimen: Dosing by random level.
Monitoring: A random level is scheduled on 09/23 at 0600 w. am lab. Pharmacy will follow
Pharmacokinetics Vancomycin I
- -
Patient Age: 89
Patient Sex: Female
Vancomycin Day #: 1
Indication: Pulmonary/Respiratory
Requesting Provider: Dr Yi Bajwa
Pertinent Antimicrobial Allergies:
PCN and sulfa w. rash
Height / Weight:
Height 5 ft 5 in
Actual Weight 65.005 kg
Pertinent Past Medical History: Pt presented w. breathing problem.
- Vital Signs / Lab Results
Temp Pulse Resp BP Pulse Ox
99.6 F 101 22 139/70 90
09/22/25 21:27 09/22/25 21:27 09/22/25 21:27 09/22/25 21:27 09/22/25 21:27
Lab Results - Hematology
09/22/25
17:04
WBC 14.0 H
Lab Results - Chemistry
09/22/25
17:04
BUN 18 H
Creatinine 1.0
Estimated Creat Clear 36
Albumin 3.0 L
09/22/25 09/22/25
17:59 21:30
Lactic Acid 0.7 Cancelled
Microbiology Results
09/22/25 17:59 Influenza Types A & B (YESSENIA) - Final
Nasal Swab Negative for Influenza A & B, NAAT
Negative results must be combined with clinical observations
and patient history.
Nucleic Acid Amplification test (NAAT)performed on the
[employer] platform.
[2025-09-22 23:06] VITALS: BP 140/58
[2025-09-23] VITALS (7 sets, daily range): BP systolic 73–159; BP diastolic 52–76; BMI 23.8
[2025-09-23] MEDS: ROBITUSSIN 200 MG PO (02:58)
[2025-09-23] MEDS: MAXIPIME 2000 MG IV ×2 (06:07→18:03)
[2025-09-23] MEDS: STERILE WATER FOR INJECTION 10 ML IV ×2 (06:07→18:03)
--- NOTE | 2025-09-23 07:05 | W.PN.HOSP.TC ---
Addendum entered and electronically signed by Luis Antonio Conner MD 09/23/25 16:44:
Seen and examined the patient with the resident. Agree with the plan. See changes in my documentation
89-year-old with history of lung cancer, COPD, history of radiation for breast cancer came with shortness of breath
Patient does not know any history of the details of the treatment of her cancer. Spoke to son he does not have much of an idea either except that she was treated at [facility]. He stated that her cancer treatment with radiation was about 5 years
ago and in December she had a PET scan and was found to have recurrence. It was decided just to watch it and not treated. As far as he knows she did not have any biopsy.
ECHO-hyperdynamic LV. EF 70 to 75%. Mild to moderate MR, moderate TR. severely elevated PA pressures & millimeters of mercury
CT of the chest-significant increase in the dense opacification centrally in the right chest at least in part suggesting atelectasis/volume loss possibly accompanying malignancy. Increase in the moderate right pleural effusion. No pneumothorax or
left pleural effusion. Mild mediastinal lymphadenopathy.
PET scan January 08-2.5 and 2.1 cm nodule in the inferior right upper lobe suspicious for malignancy. Additional 2.2 cm nodule in the right lower lobe may be infectious/inflammatory or intrapulmonary metastasis. Right hilar and mediastinal lymph
nodes
Patient was seen earlier. Late documentation
Cardiovascular system S1-S2 appreciated
Chest clear few rales bilaterally
Abdominal soft and nontender
No pedal edema
# Acute on chronic hypoxic respiratory failure secondary to moderate to large pleural effusion
Recurrent pleural effusion-concerning for malignant effusion-cytology was negative for malignancy from 09/04/2025
Interventional radiology performed thoracentesis today with 1400 mL of clear fluid
Discontinue antibiotics and watch off of antibiotics if procal neg in am
Pulmonary evaluation appreciated
# COPD with chronic hypoxic respiratory failure on 5 L of oxygen at baseline
Continue albuterol, budesonide, Mucinex, montelukast
# Acute on chronic hyponatremia-possible SIADH. Check osmolality studies
# Anemia-likely secondary to chronic disease
# History of lung cancer right upper lobe status post radiation- 5 years ago concern for recurrence in SEP 2024. PET December 2024
Spoke to .
Saw Oct 2024-Right pleural effusion- at [facility] Oct 2024
Patient had a PET scan done in December she was not healthy to undergo treatment therefore the plan was to watch her. They have not followed up with Dr. Gibbs
# Paroxysmal atrial fibrillation/flutter-continue Cardizem to 40 mg daily, Eliquis
# Hypertension-continue Cardizem, clonidine
# History of wide-complex tachycardia - SVT with aberrancy
# Hyperlipidemia/atherosclerosis-continue statin
# Severe pulmonary hypertension-systolic pressure 77 mmHg and moderate TR
# History of breast cancer status postmastectomy and radiation-continue letrozole
# Osteoporosis
# Overactive bladder-continue oxybutynin
# Anxiety and depression-continue venlafaxine
# Infrarenal aortic ectasia
# Active smoker-cessation counseling
# DVT prophylaxis-Eliquis
# DNR
D/W
Discussed with patient's son on the phone in detail. He is going to talk to mom and make a decision whether she wants to be on hospice.
If the pleural effusion becomes recurrent then she may need a PleurX catheter
Time spent over 50 minutes
Part of this note was created using voice recognition system. Occasional wrong word or��sound alike� substitutions may have inadvertently occurred due to the inherent limitations of voice recognition software. If noted kindly bring it to my
attention for correction.
Original Note:
Today's Communication/Plan
-
Thoracentesis today
continue supportive care
Assessment / Plan
Assessment / Plan
89 y/o F pmh of chronic hypoxic respiratory failure, COPD on 5 L oxygen, lung cancer s/p radiation, breast cancer s/p mastectomy/radiation, hypertension, atrial tachycardia atrial fibrillation/flutter, pulmonary hypertension, hyperlipidemia,
anxiety, wide-complex tachycardia likely SVT with aberrancy, macrocytic anemia presented on 09/22/2025 with increased shortness of breath for the past 3 days. She was hypoxemic to 70%. She has chronic cough at baseline. Patient always feels short
of breath but this got worse around a week ago.
Imaging
Chest Xray 09/22/2025
-Marked progression of opacification involving the lower half the right hemithorax at least in part suggesting moderate to large right pleural effusion with likely accompanying atelectasis/volume loss.
-Cannot exclude accompanying mass and/or consolidation in the right upper perihilar region
CT Chest W/o Iv Contrast 09/22/2025
-Significant increase in dense opacification centrally in the right chest at least in part suggesting atelectasis/volume loss, possible accompanying MALIGNANCY, evaluation overall markedly limited without intravenous contrast. Additional increase in
moderate right pleural effusion.
-No pneumothorax or left pleural effusion. Mild mediastinal lymphadenopathy
Echo 09/03/2025
1. Hyperdynamic left ventricular systolic function. No regional wall motion abnormalities. LVEF 70-75%.
2. Mild to moderate mitral regurgitation.
3. Moderate tricuspid regurgitation.
4. Severely elevated pulmonary artery systolic pressure (77 mmHg).
5. No prior study available for comparison
Procedure
Plan
Acute on chronic hypoxemic respiratory failure secondary to right pleural effusion/possible parapneumonic vs secondary to right heart failure from pulmonary hypertension
- Currently on 5 L oxygen
- Chest x-ray see above
- Leukocytosis WBC 11
- Cannot rule out underlying pneumonia/ malignancy
- CT chest- right chest opacification- ? malignany ?pneumonia? atelectasis
- Blood cultures- pending
- Vancomycin/cefepime #D2 empirically until Bx results come back
- lactic acid - 0.7 N, cardiac BNP - 2260 HF likely , troponin - 0.016 No WI
- Consult IR, input appreciated
- Thoracentesis on 09/23/2025 - 800 mL fluid removed, lung reexpanded post-thoracentesis. Atypical cells.
- Exudative by LDH criteria, LDH ratio 0.98, Protein ratio 0.545. Primarily mononuclear cells
- If pleural effusion continues to recur- ? intrapleural catheter
- Fluid studies- pending
- Not clinically septic
- Hold off IV fluids
Chronic hypoxemic respiratory failure/COPD on 5 L O2 baseline
- DuoNebs every 6 hours
- Continue montelukast
Slight worsening of chronic hyponatremia
- Sodium 129
Lung cancer s/p radiation
-Pt does not remember when she was diagnosed the first time. It was in [facility]
-Per pt recent imaging as outpatient showed recurrence of lung cancer, she was seen by her oncologist and she was told there is no options for therapy because of her age
-called the pt's son Jordon did not respond will try again later regarding details
Breast cancer s/p mastectomy/radiation
- Continue letrozole
Essential hypertension
Atrial fibrillation/flutter
- Continue diltiazem
- Continue Eliquis
Wide-complex tachycardia/SVT with a Feng C
History of atrial flutter
Pulmonary hypertension
Hyperlipidemia
- Continue statin
Anxiety
Chronic macrocytic anemia
- Baseline
Osteoporosis
Active smoker
-6 cigarettes/day
DNR/DNI
DVT prophylaxis�Eliquis
Regular diet
Anticipated Discharge: > 48 hours
Subjective/Interval History
-
Date of Service: September 23, 2025
She reports feeling better today. She is on 5L O2 same with her home O2. When she moves she gets SOB. She has decreased appetite for last 3 days. She denies chest pain, palpitations.
Objective Data
-
Labs:
Laboratory Results
09/23/25
06:00
WBC Pending
Hgb Pending
Hct Pending
Plt Count Pending
Sodium Pending
Potassium Pending
Chloride Pending
Carbon Dioxide Pending
BUN Pending
Creatinine Pending
Glucose Pending
Calcium Pending
Total Bilirubin Pending
AST Pending
ALT Pending
Alkaline Phosphatase Pending
Vital Signs:
Vital Signs
Temp Pulse Resp BP Pulse Ox
97.6 F 84 24 151/67 93
09/23/25 03:06 09/23/25 03:06 09/23/25 03:06 09/23/25 03:06 09/23/25 03:06
I&O
09/22/25 09/23/25 09/24/25
06:59 06:59 06:59
Intake Total 480 / 480
Balance 480 / 480
Review of Systems
-
History Source: Patient
Constitutional: Reports No Appetite
EENT: Reports No Symptoms Reported
Respiratory: Reports Cough and Trouble Breathing
Cardiac: Reports No Symptoms
Abdomen/GI: Reports No Symptoms
Breast: Reports No Symptoms
Genitourinary: Reports No Symptoms
Musculoskeletal: Reports No Symptoms
Skin: Reports No Symptoms
Neuro: Reports No Symptoms
Endocrine: Reports No Symptoms
Hematologic / Lymphatic: Reports No Symptoms
Physical Exam
-
General: Well Developed, Well Nourished, Respiratory Distress and Conversant
HEENT: Normocephalic, Atraumatic, Hearing Impaired and Oxygen (5L NC)
Respiratory: Wheezes and Crackles
Cardiac: Regular Rhythm and S1/S2
Breast: Deferred by me
GI: Soft, Nontender, Nondistended and Normal Bowel Sounds
Rectal: Deferred by Provider
Genito-urinary: Deferred by me
Musculoskeletal: No Clubbing, No Cyanosis and No Edema
Skin: Warm and Dry
Neuro: AO x 3
Psych: Calm
[2025-09-23 07:55] LABS: Hematocrit 29.1 % (37.0-47.0); Hemoglobin 10.0 g/dL (12.0-16.0); Mean Corp Hgb Conc. 34.4 g/dL (33.0-37.0); Mean Corpuscular Volume 93.6 fL (81.0-99.0); Nucleated Red Blood Cells % 0 %; Platelet Count 233 10^3/uL (130-400); Red Cell Dist. Width 13.2 % (11.5-14.5)
[2025-09-23] MEDS: PULMICORT 0.5 MG INH ×2 (08:02→20:02)
[2025-09-23] MEDS: ADVAIR HFA 115/21 MCG INHALER 2 PUFF INH ×2 (08:02→20:02)
[2025-09-23] MEDS: DUONEB 3 ML INH ×4 (08:02→20:02)
[2025-09-23 08:30] LABS: ALT (SGPT) 49 U/L (0-35); AST (SGOT) 45 U/L (14-36); Albumin 2.9 g/dl (3.5-5.0); Alkaline Phosphatase 140 U/L (38-126); Blood Urea Nitrogen 28 mg/dl (7-17); Calcium 9.2 mg/dl (8.4-10.2); Carbon Dioxide 27 mmol/L (22-30); Chloride 97 mmol/L (98-107); Estimated Creatinine Clearance 36 ml/min; Glucose 177 mg/dl (70-99); LDH 158 U/L (120-246); Potassium 4.5 mmol/L (3.5-5.1); Sodium 129 mmol/L (135-145); Total Protein 5.5 g/dl (6.3-8.2); eGFR 54.53
--- NOTE | 2025-09-23 08:47 | PHA.VAN.FU ---
Vancomycin Assessment / Plan
- Assessment
Renal Function: Stable
WBC's are: Trending Down
In the past 24 hrs, patient has been: Afebrile
Concomitant Antimicrobials: cefepime
- Assessment - Therapeutic Drug Monitoring
Random Level: 12.2 - drawn ~12.5H after 1500mg loading dose
- Dosing Plan
Dosing by Level: Re-dose today (Vanc 750mg)
- Monitoring Plan
Random Level: 09/24 0600
- Follow Up
Pharmacy will continue to follow.
Vancomycin Follow UP
- -
Patient Age: 89
Patient Sex: Female
Vancomycin Day #: 2
Indication: Pulmonary/Respiratory
Requesting Provider: Dr Yi Bajwa
Pertinent Antimicrobial Allergies:
PCN and sulfa w. rash
Height / Weight:
Height 5 ft 5 in
Actual Weight 65.005 kg
Pertinent Past Medical History: COPD (home O2)
- Vital Signs / Lab Results
Temp Pulse Resp BP Pulse Ox
98.1 F 87 16 157/76 94
09/23/25 07:30 09/23/25 08:04 09/23/25 08:04 09/23/25 07:30 09/23/25 08:04
Lab Results - Hematology
09/22/25 09/23/25
17:04 07:29
WBC 14.0 H 11.0 H
Lab Results - Chemistry
09/22/25 09/23/25
17:04 07:29
BUN 18 H 28 H
Creatinine 1.0 1.0
Estimated Creat Clear 36 36
Albumin 3.0 L 2.9 L
09/22/25 09/22/25
17:59 21:30
Lactic Acid 0.7 Cancelled
Microbiology Results
09/22/25 17:59 Influenza Types A & B (YESSENIA) - Final
Nasal Swab Negative for Influenza A & B, NAAT
Negative results must be combined with clinical observations
and patient history.
Nucleic Acid Amplification test (NAAT)performed on the
[employer] platform.
Therapeutic Drug Monitoring
Random Vancomycin 12.2 ug/ml 09/23/25 07:29
[2025-09-23] MEDS: ELIQUIS 5 MG PO ×2 (09:21→20:25)
[2025-09-23] MEDS: DELTASONE 10 MG PO (09:21)
[2025-09-23] MEDS: DITROPAN 10 MG PO (09:21)
[2025-09-23] MEDS: EFFEXOR XR 150 MG PO (09:21)
[2025-09-23] MEDS: MUCINEX 600 MG PO ×2 (09:21→20:25)
[2025-09-23] MEDS: CATAPRES 0.3 MG PO ×3 (09:21→22:44)
[2025-09-23] MEDS: FEMARA 2.5 MG PO (09:22)
[2025-09-23] MEDS: CARDIZEM CD 240 MG PO (09:22)
[2025-09-23] MEDS: VANCOCIN 150 IV (10:39)
[2025-09-23 10:43] LABS: Iron 25 ug/dl (37-170)
[2025-09-23 10:52] LABS: Total Iron Binding Capacity 177 ug/dl (265-497)
[2025-09-23 11:21] LABS: Ferritin 165.0 ng/ml (11.1-264.0)
[2025-09-23 11:35] LABS: Vitamin B12 317 pg/ml (239-931)
--- NOTE | 2025-09-23 12:21 | CON.PUL ---
Consultation
Consultation Request
Date/Time Consultation Requested: 09/23/2025
Date/Time Consultation Performed: 09/23/2025
Requesting Provider: Dr. Conner
Performing Provider: Dr. Dannie Jhaveri
Reason for Consultation: Acute exacerbation of COPD.
Medical History
-
Chief Complaint: Shortness of breath
History of Present Illness:
Patient is a very pleasant 89-year-old female with history of lung cancer as well as COPD, baseline oxygen dependent, a flutter on Eliquis, who presented to the emergency room via EMS due to worsening shortness of breath over the last few days.
Admitted in mid August with shortness of breath, found to have acute exacerbation, right pleural effusion status post thoracentesis. She was treated with course of steroids and antibiotics. Thoracentesis performed show atypical cells
She is back complaining of shortness of breath, hypoxemic down to 70%.
Denies increased cough or phlegm production. She has chronic cough that is unchanged.
She has been compliant with inhalers
Denies any sick contacts
Continues to smoke 6 cigarettes/day.
Repeat imaging of the chest 09/22/2025: Showed again worsening pleural effusion, central airspace disease compressive atelectasis/cancer, less likely infection.
Underwent repeat thoracentesis 09/23/2025 for
Past Medical History
Past Medical History: Reports Other (atrial fibrillation/flutter, COPD, lung cancer, CHF,)
Past Surgical History: Reports Other (Mastectomy)
Social History
Tobacco: Smoker (Smokes 6 cigarettes/day)
Alcohol: None
Drug: None
Living: Halfway
Employment: Retired
Family History
Family History: Not pertinent
Allergies / Home Medications
Allergies
Allergy/AdvReac Type Severity Reaction Status Date / Time
codeine Allergy Unknown Verified 09/22/25 18:12
hydrochlorothiazide Allergy Rash Verified 09/22/25 18:12
Penicillins Allergy Rash Verified 09/22/25 18:12
strawberry Allergy Rash Verified 09/22/25 18:12
Sulfa (Sulfonamide Allergy Rash Verified 09/22/25 18:12
Antibiotics)
Home Medications
�Medication �Instructions �Recorded �Confirmed �Last Taken �Type
acetaminophen 325 mg tablet 650 mg PO Q6HPRN PRN MILD PAIN 09/03/25 09/23/25 Unknown History
(Tylenol)
albuterol sulfate 90 mcg/actuation 2 puff inhalation R Q4HPRN PRN SOB 09/03/25 09/23/25 Unknown History
aerosol inhaler
alendronate 70 mg tablet 70 mg PO MO bone health 09/03/25 09/23/25 Unknown History
apixaban 5 mg tablet (Eliquis) 5 mg PO BID Blood Clot 09/03/25 09/23/25 Unknown History
Prevention/Tx
atorvastatin 10 mg tablet 10 mg PO HS High Cholesterol 09/03/25 09/23/25 Unknown History
benzonatate 100 mg capsule 100 mg PO BID cough 09/03/25 09/23/25 Unknown History
benzonatate 200 mg capsule 200 mg PO HS cough 09/03/25 09/23/25 Unknown History
bisacodyl 10 mg rectal suppository 10 mg IA DAILYPRN PRN IF NO BM 09/03/25 09/23/25 Unknown History
(Dulcolax (bisacodyl)) AFTR MOM
cholecalciferol (vitamin D3) 125 125 mcg PO DAILY Supplement 09/03/25 09/23/25 Unknown History
mcg (5,000 unit) tablet (Vitamin
D3)
clonidine HCl 0.3 mg tablet 0.3 mg PO TID Blood Pressure 09/03/25 09/23/25 Unknown History
fexofenadine 60 mg tablet 60 mg PO BIDPRN PRN ALLERGIES 09/03/25 09/23/25 Unknown History
fluticasone 250 mcg-salmeterol 50 1 inh inhalation R BID 09/03/25 09/23/25 Unknown History
mcg/dose blistr powdr for Lung/Breathing Issues
inhalation (Advair Diskus)
fluticasone propionate 50 1 spray intranasal BID allergic 09/03/25 09/03/25 Unknown History
mcg/actuation nasal rhinitis
spray,suspension
guaifenesin 100 mg/5 mL oral 200 mg PO Q6HPRN PRN COUGH 09/03/25 09/23/25 Unknown History
liquid (Luz-Tussin)
guaifenesin 600 mg tablet, 600 mg PO BID Congestion 09/03/25 09/23/25 Unknown History
extended release 12 hr (Mucinex)
hydrocortisone 2.5 % topical cream 1 applic topical BID RASH 09/03/25 09/23/25 Unknown History
hydroxyzine HCl 25 mg tablet 25 mg PO BIDPRN PRN ITCHING 09/03/25 09/23/25 Unknown History
ipratropium 0.5 mg-albuterol 3 mg 3 ml inhalation R Q6HPRN PRN SOB 09/03/25 09/23/25 Unknown History
(2.5 mg base)/3 mL nebulization
soln
letrozole 2.5 mg tablet 2.5 mg PO DAILY Cancer 09/03/25 09/23/25 Unknown History
levocetirizine 5 mg tablet 5 mg PO DAILY allergies 09/03/25 09/23/25 Unknown History
magnesium hydroxide 400 mg/5 mL 2,400 mg PO [id number] PRN 09/03/25 09/23/25 Unknown History
oral suspension (Milk of Magnesia) CONSTIPATION
melatonin 3 mg tablet 3 mg PO HS Sleep 09/03/25 09/23/25 Unknown History
menthol 4 % topical gel (Biofreeze 1 applic topical BID LEFT 09/03/25 09/23/25 Unknown History
(menthol)) HIP/LOWER BACK
montelukast 10 mg tablet 10 mg PO HS Lung/Breathing Issues 09/03/25 09/23/25 Unknown History
olopatadine 0.7 % eye drops 1 drp BOTH EYES BID Eye Condition 09/03/25 09/23/25 Unknown History
(Pataday Once Daily Relief)
ondansetron HCl 4 mg tablet 4 mg PO Q8HPRN PRN NAUSEA 09/03/25 09/03/25 Unknown History
oxybutynin chloride 10 mg 10 mg PO DAILY overactive bladder 09/03/25 09/23/25 Unknown History
tablet,extended release 24 hr
sodium phosphates 19 gram-7 118 ml IA DAILYPRN PRN IF NO BM 09/03/25 09/23/25 Unknown History
gram/118 mL enema (Fleet Enema) AFTR DULCOLAX
venlafaxine 150 mg 150 mg PO DAILY Depression 09/03/25 09/23/25 Unknown History
capsule,extended release 24 hr
vitamins A,C,D-nllm-zzcamc 2,148 1 tab PO DAILY Supplement 09/03/25 09/03/25 Unknown History
mcg-113 mg-45 mg-17.4 mg tablet
(PreserVision AREDS)
diltiazem HCl 240 mg 240 mg PO DAILY #30 caps 09/05/25 09/23/25 Unknown Rx
capsule,extended release 24 hr
budesonide 0.5 mg/2 mL suspension 0.5 mg (2 mL) inhalation R BID #0 09/06/25 09/23/25 Unknown Rx
for nebulization mL
calcium carbonate (Calcium Antacid) 200 mg PO Q6HPRN PRN gerd #5 tabs 09/06/25 09/23/25 Unknown Rx
doxycycline hyclate 100 mg capsule 100 mg PO Q12 Anti-inflammatory #4 09/06/25 09/23/25 Unknown Rx
caps
prednisone 10 mg tablet 10 mg PO DIRECTED 09/06/25 09/23/25 Unknown Rx
Anti-inflammatory #6 tabs
prednisone 10 mg tablet 10 mg PO DAILY anti-inflammation 09/06/25 09/03/25 Unknown Rx
#1 tab
Review of Systems
Vitals / Labs / Diagnostic Testing
Vital Signs
Temp Pulse Resp BP Pulse Ox
97.0 F 68 16 132/52 94
09/23/25 11:00 09/23/25 11:59 09/23/25 11:59 09/23/25 11:59 09/23/25 11:00
Lab Data
09/23/25 07:29
09/23/25 07:29
Microbiology
09/22/25 17:59 Nasal Swab Influenza Types A & B (YESSENIA) - Final
Negative for Influenza A & B, NAAT
Negative results must be combined with clinical observations
and patient history.
Nucleic Acid Amplification test (NAAT)performed on the
[employer] platform.
Diagnostic Testing:
Physical Exam
-
HEENT: Normocephalic
Cardiovascular: S1/S2
Respiratory: Wheeze (n) and Rhonchi
GI: Soft and Non Distended
Neurology: Awake, Alert and AO x 3
General: Comfortable
Assessment
-
Patient is a very pleasant 89-year-old female with history of lung cancer as well as COPD, baseline oxygen dependent, a flutter on Eliquis, who presented to the emergency room via EMS due to worsening shortness of breath over the last few days.
She was recently discharged for similar complaints about 3 weeks ago. Cytology from thoracentesis 09/04/2025: Show atypical cells.
#1. Right-sided pleural effusion, concern for malignant effusion
-08/24/2025 status post thoracentesis. Results pending.
-Chest x-ray post with reexpansion of the lung. Minimal residual effusion.
- 09/03, status post IR guided drainage, 800 mL fluid removed, lung reexpanded post-thoracentesis
- Atypical cells.
- Exudative by LDH criteria, ratio 0.78. Primarily mononuclear cells.
If pleural effusion continues to recur intrapleural catheter may be an option-this will be an ongoing discussion if there is rapid recurrence in the next several weeks which I suspect will occur.
Recommend palliative care
#2. 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
- Differential diagnosis also includes pneumonia however post-thoracentesis patient has better lung aeration, more suggestive of compressive atelectasis due to pleural effusion.
-CT chest from 09/22/2025--> showed worsening central right upper lobe opacity/cancer/lymphangitic spread-difficult to discern from infectious/postobstructive.
- Patient reports history of radiation for right upper lobe lung cancer.
Reportedly recent imaging as outpatient suggested recurrence of lung cancer which patient is aware-the son was in the bedside, he confirms that the patient was seen by her oncologist and she was told there is no options for therapy.
I did discuss possibility of palliative care/hospice. They will think about it.
#3. Acute on chronic hypoxic respiratory failure-currently on 6 L.(Usually on 5 L supplemental oxygen at home)
- Multifactorial, patient has baseline severe COPD with noted emphysema on imaging along with history of lung cancer, large right-sided pleural effusion with compressive atelectasis/recurrent cancer/airspace disease. Lymphangitic expressed cannot
be ruled out.
- Continue supplemental O2, target SpO2 89% or greater in view of underlying pulmonary hypertension
- Chest x-ray postthoracentesis showed no evidence for pneumothorax. Persistent right hilar opacity underlying malignancy. Good reexpansion of the right lung. Doubt central airway obstruction.
Patient does have leukocytosis on admission But she is afebrile-difficult to discern between malignancy and pneumonia. She did complete a course of antibiotics recently.
Currently on antibiotics per primary team-low threshold to discontinue if there is rapid improvement after thoracentesis and all cultures negative.
Obtain procalcitonin and monitor for fevers.
Sputum culture if able to produce
#4. History of severe COPD, baseline oxygen dependent
- Continue DuoNeb 4 times daily scheduled, and budesonide twice daily nebulized-usual regiment.
- No indication for systemic corticosteroids-currently on prednisone 10 mg.
- Patient continues to smoke as outpatient, as it makes her happy
#5. Pulmonary hypertension, severe.
- Pulmonary artery systolic pressure of 77 with moderate tricuspid regurgitation. RV size and function preserved however.
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
- Continue supplemental oxygen, target SpO2 89% or greater
Other medical diagnoses:
- Wide-complex tachycardia, differential diagnosis includes SVT with aberrancy, multifocal atrial tachycardia versus A-fib/a flutter in the setting of COPD exacerbation
- Mild troponin leak
- Hypertension
- History of CA breast, s/p surgery and radiation. Not on any chemotherapy
- Elevated lactate, since normalized down to 0.8
- Abnormal creatinine, CKD versus LISA.
- Hyperglycemia
- Hypomagnesemia
[facility].
Data:
ECHO 08/2025: 1. Hyperdynamic left ventricular systolic function. No regional wall motion abnormalities. LVEF 70-75%.
2. Mild to moderate mitral regurgitation.
3. Moderate tricuspid regurgitation.
4. Severely elevated pulmonary artery systolic pressure (77 mmHg).
5. No prior study available for comparison.
CT Chest 08/2025: 1. Moderate right pleural effusion with associated atelectasis and/or pneumonia.
2. Progressed right upper lobe consolidation may reflect a combination of atelectasis/scarring and pneumonia. Cannot rule out superimposed recurrent neoplasm.
3. Scattered prominent mediastinal and probable hilar lymph nodes, likely similar to prior and may be reactive and/or metastatic.
[2025-09-23 12:53] LABS: Body Fluid Second Tech EM
--- NOTE | 2025-09-23 16:27 | CM ---
Patient seen bedside, initial assessment completed. Presenting w/ shortness of breath.
Patient is a LTC resident at [facility]. Patient stated she is w/c bound, doesn't walk. Patient stated she is able to transfer in and out of her w/c but needs assistance w/ standing up. Patient stated she is also assisted w/ showers. Can dress
independently. Patient stated she is on O2 at facility (5L). Patient stated she sees PT once in a while, last time was about a week ago or less
PCP: Michelle Drake
Pharmacy: [facility]
Plan: Return to [facility] when medically stable
[2025-09-23] MEDS: LIPITOR 10 MG PO (22:44)
[2025-09-23] MEDS: MELATONIN 3 MG PO (22:44)
[2025-09-23] MEDS: SINGULAIR 10 MG PO (22:44)
[2025-09-24 02:28] VITALS: BP 127/56
[2025-09-24] MEDS: MAXIPIME 2000 MG IV ×2 (05:17→17:01)
[2025-09-24] MEDS: STERILE WATER FOR INJECTION 10 ML IV ×2 (05:17→17:01)
[2025-09-24 05:24] VITALS: BMI 22.7
[2025-09-24] MEDS: ADVAIR HFA 115/21 MCG INHALER 2 PUFF INH ×2 (07:21→19:55)
[2025-09-24] MEDS: DUONEB 3 ML INH ×4 (07:22→19:55)
[2025-09-24] MEDS: PULMICORT 0.5 MG INH ×2 (07:22→19:55)
--- NOTE | 2025-09-24 07:25 | W.PN.HOSP.TC ---
Addendum entered and electronically signed by Luis Antonio Conner MD 09/24/25 16:06:
Seen and examined the patient with the resident. Agree with the plan. See changes in my documentation
89-year-old with history of lung cancer, COPD, history of radiation for breast cancer came with shortness of breath
Patient does not know any history of the details of the treatment of her cancer. Spoke to son he does not have much of an idea either except that she was treated at [facility]. He stated that her cancer treatment with radiation was about 5 years
ago and in December she had a PET scan and was found to have recurrence. It was decided just to watch it and not treated. As far as he knows she did not have any biopsy.
ECHO-hyperdynamic LV. EF 70 to 75%. Mild to moderate MR, moderate TR. severely elevated PA pressures & millimeters of mercury
CT of the chest-significant increase in the dense opacification centrally in the right chest at least in part suggesting atelectasis/volume loss possibly accompanying malignancy. Increase in the moderate right pleural effusion. No pneumothorax or
left pleural effusion. Mild mediastinal lymphadenopathy.
PET scan January 08-2.5 and 2.1 cm nodule in the inferior right upper lobe suspicious for malignancy. Additional 2.2 cm nodule in the right lower lobe may be infectious/inflammatory or intrapulmonary metastasis. Right hilar and mediastinal lymph
nodes
Repeat chest x-ray-small effusion
Patient was seen earlier. Late documentation
Cardiovascular system S1-S2 appreciated
Chest clear few rales bilaterally
Abdominal soft and nontender
No pedal edema
# Acute on chronic hypoxic respiratory failure secondary to moderate to large pleural effusion
Recurrent pleural effusion-concerning for malignant effusion-cytology was negative for malignancy from 09/04/2025
Interventional radiology performed thoracentesis today with 1400 mL of clear fluid-exudative
Continue antibiotics-procalcitonin elevated
Pulmonary evaluation appreciated
# COPD with chronic hypoxic respiratory failure on 5 L of oxygen at baseline
Continue albuterol, budesonide, Mucinex, montelukast
# Acute on chronic hyponatremia-possible SIADH.
Will provide 1 dose of Lasix and follow sodium
# Anemia-likely secondary to chronic disease
# History of lung cancer right upper lobe status post radiation- 5 years ago concern for recurrence in SEP 2024. PET December 2024
Spoke to .
Saw Oct 2024-Right pleural effusion- at [facility] Oct 2024
Patient had a PET scan done in December she was not healthy to undergo treatment therefore the plan was to watch her. They have not followed up with Dr. Gibbs
Discussed with patient and son at bedside earlier today. Neither of them are interested in pursuing further workup for malignancy knowing that this could be malignancy and aware about consequences of untreated malignancy. She states that I am old
and I do not want to pursue any treatment.
Palliative care was also discussed
Discussed about the plan of following her up with pulmonary as outpatient and if there is a recurrence of the pleural effusion she could get a PleurX catheter for symptom management. If the malignancy gets worse they could consider hospice at that
time. Patient and son are both on board with this plan.
# Paroxysmal atrial fibrillation/flutter-continue Cardizem to 40 mg daily, Eliquis
# Hypertension-continue Cardizem, clonidine
# History of wide-complex tachycardia - SVT with aberrancy
# Hyperlipidemia/atherosclerosis-continue statin
# Severe pulmonary hypertension-systolic pressure 77 mmHg and moderate TR
# History of breast cancer status postmastectomy and radiation-continue letrozole
# Osteoporosis
# Overactive bladder-continue oxybutynin
# Anxiety and depression-continue venlafaxine
# Infrarenal aortic ectasia
# Active smoker-cessation counseling
# DVT prophylaxis-Eliquis
# DNR
Case discussed with patient's son in detail at bedside
Discussed with pulmonary
to call senior care to find out how long the patient has been on prednisone.
Part of this note was created using voice recognition system. Occasional wrong word or��sound alike� substitutions may have inadvertently occurred due to the inherent limitations of voice recognition software. If noted kindly bring it to my
attention for correction.
Original Note:
Today's Communication/Plan
-
20mg PO lasix once for hyponatremia
Keep Oxygen sat 88-92%
Call pt son and NF for further details
Assessment / Plan
Assessment / Plan
89 y/o F pmh of chronic hypoxic respiratory failure, COPD on 5 L oxygen, lung cancer s/p radiation, breast cancer s/p mastectomy/radiation, hypertension, atrial tachycardia atrial fibrillation/flutter, pulmonary hypertension, hyperlipidemia,
anxiety, wide-complex tachycardia likely SVT with aberrancy, macrocytic anemia presented on 09/22/2025 with increased shortness of breath for the past 3 days. She was hypoxemic to 70%. She has chronic cough at baseline. Patient always feels short
of breath but this got worse around a week ago.
Imaging
Chest Xray 09/22/2025
-Marked progression of opacification involving the lower half the right hemithorax at least in part suggesting moderate to large right pleural effusion with likely accompanying atelectasis/volume loss.
-Cannot exclude accompanying mass and/or consolidation in the right upper perihilar region
CT Chest W/o Iv Contrast 09/22/2025
-Significant increase in dense opacification centrally in the right chest at least in part suggesting atelectasis/volume loss, possible accompanying MALIGNANCY, evaluation overall markedly limited without intravenous contrast. Additional increase in
moderate right pleural effusion.
-No pneumothorax or left pleural effusion. Mild mediastinal lymphadenopathy
Echo 09/03/2025
1. Hyperdynamic left ventricular systolic function. No regional wall motion abnormalities. LVEF 70-75%.
2. Mild to moderate mitral regurgitation.
3. Moderate tricuspid regurgitation.
4. Severely elevated pulmonary artery systolic pressure (77 mmHg).
5. No prior study available for comparison
Procedure
Thoracentesis 09/22/2025
Plan
Acute on chronic hypoxemic respiratory failure secondary to right pleural effusion/possible parapneumonic vs secondary to right heart failure from pulmonary hypertension
- Currently on 5 L oxygen
- Chest x-ray see above
- Leukocytosis WBC 11
- Cannot rule out underlying pneumonia/ malignancy
- CT chest- right chest opacification- ? malignancy ?pneumonia? atelectasis
- Blood cultures- NG in 24h -pending
- Vancomycin/cefepime #D3 empirically until Bx results come back
- lactic acid - 0.7 N, cardiac BNP - 2260 HF likely , troponin - 0.016 No NV
- Consult IR, input appreciated
- Thoracentesis on 09/23/2025 - 800 mL fluid removed-- chest xray s/p thoracententesis--> lung reexpanded
- Exudative by LDH criteria, LDH ratio 0.98, Protein ratio 0.545. Primarily mononuclear cells, Atypical cells.
- If pleural effusion continues to recur- ? intrapleural catheter
- Fluid studies- pending
- Not clinically septic
- Hold off IV fluids
- PT screening - no skilled rehab needed
History of severe COPD, baseline oxygen dependent
- home O2 5L
- DuoNebs Q6h, budenoside BID
- Continue montelukast
- currently on 10mg Prednisone - going to call [facility] (?since when, why)
- continues to smoke
Slight worsening of chronic hyponatremia
- Sodium 129
- 20mg PO Lasix once
Lung cancer s/p radiation
-Pt does not remember when she was diagnosed the first time. It was in [facility]
-Per pt recent imaging as outpatient showed recurrence of lung cancer, she was seen by her oncologist and she was told there is no options for therapy because of her age
-called the pt's son Jordon did not respond will try again later regarding details
Breast cancer s/p mastectomy/radiation
- Continue letrozole
Essential hypertension
Atrial fibrillation/flutter
- Continue diltiazem
- Continue Eliquis
Wide-complex tachycardia/SVT with a Feng C
History of atrial flutter
Pulmonary hypertension
- Pulmonary artery systolic pressure of 77 with moderate tricuspid regurgitation. RV size and function preserved.
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
- Continue supplemental oxygen, target SpO2 89% or greater
Hyperlipidemia
- Continue statin
Anxiety
Chronic macrocytic anemia
- Baseline
Osteoporosis
Active smoker
-6 cigarettes/day
DNR/DNI
DVT prophylaxis�Eliquis
Regular diet
Anticipated Discharge: > 48 hours
Subjective/Interval History
-
Date of Service: September 24, 2025
She feels more comfortable today after having thoracentesis her shortness of breath is better. She still has difficulty with breathing when she moves around on the bed. She denies chest pain, palpitations. She did not have BM.
Objective Data
-
Labs:
Laboratory Results
09/24/25
06:00
WBC Pending
Hgb Pending
Hct Pending
Plt Count Pending
Sodium Pending
Potassium Pending
Chloride Pending
Carbon Dioxide Pending
BUN Pending
Creatinine Pending
Glucose Pending
Calcium Pending
Vital Signs:
Vital Signs
Temp Pulse Resp BP Pulse Ox
98.3 F 81 18 127/56 94
09/24/25 02:28 09/24/25 07:23 09/24/25 07:23 09/24/25 02:28 09/24/25 07:23
I&O
09/23/25 09/24/25 09/25/25
06:59 06:59 06:59
Intake Total 480 / 480 1020 / 1020
Balance 480 / 480 1020 / 1020
Review of Systems
-
History Source: Patient
Constitutional: Reports No Appetite
EENT: Reports No Symptoms Reported
Respiratory: Reports Cough and Trouble Breathing
Cardiac: Reports No Symptoms
Abdomen/GI: Reports No Symptoms
Breast: Reports No Symptoms
Genitourinary: Reports No Symptoms
Musculoskeletal: Reports No Symptoms
Skin: Reports No Symptoms
Neuro: Reports No Symptoms
Endocrine: Reports No Symptoms
Hematologic / Lymphatic: Reports No Symptoms
Physical Exam
-
General: Well Developed, Well Nourished, Respiratory Distress and Conversant
HEENT: Normocephalic, Atraumatic, Hearing Impaired and Oxygen (5L NC)
Respiratory: Wheezes and Crackles
Cardiac: Regular Rhythm and S1/S2
Breast: Deferred by me
GI: Soft, Nontender, Nondistended and Normal Bowel Sounds
Rectal: Deferred by Provider
Genito-urinary: Deferred by me
Musculoskeletal: No Clubbing, No Cyanosis and No Edema
Skin: Warm and Dry
Neuro: AO x 3
Psych: Calm
[2025-09-24 07:30] VITALS: BP 163/73
--- NOTE | 2025-09-24 08:14 | PHA.VAN.FU ---
Vancomycin Assessment / Plan
- Assessment
Renal Function: SCR Increasing
WBC's are: Trending Down
In the past 24 hrs, patient has been: Febrile
Concomitant Antimicrobials: cefepime
- Assessment - Therapeutic Drug Monitoring
Random Level: 11.6 - drawn ~21H after previous dose of 750mg
- Dosing Plan
Dosing by Level: Re-dose today (Vanc 750mg)
- Monitoring Plan
Random Level: 09/25 0600
- Follow Up
Pharmacy will continue to follow.
Vancomycin Follow UP
- -
Patient Age: 89
Patient Sex: Female
Vancomycin Day #: 3
Indication: Pulmonary/Respiratory
Requesting Provider: Dr Yi Bajwa
Pertinent Antimicrobial Allergies:
PCN - rash
sulfonamide antibiotics - rash
Height / Weight:
Height 5 ft 5 in
Actual Weight 61.961 kg
Pertinent Past Medical History: COPD (home O2)
- Vital Signs / Lab Results
Temp Pulse Resp BP Pulse Ox
97.6 F 74 16 163/73 93
09/24/25 07:30 09/24/25 07:30 09/24/25 07:30 09/24/25 07:30 09/24/25 07:30
Lab Results - Hematology
09/22/25 09/23/25
17:04 07:29
WBC 14.0 H 11.0 H
Lab Results - Chemistry
09/22/25 09/23/25
17:04 07:29
BUN 18 H 28 H
Creatinine 1.0 1.0
Estimated Creat Clear 36 36
Albumin 3.0 L 2.9 L
09/22/25 09/22/25
17:59 21:30
Lactic Acid 0.7 Cancelled
Microbiology Results
09/22/25 17:59 Blood Culture - Preliminary
Blood/Venous No Growth in 24 hours- Final report to follow
09/22/25 17:59 Blood Culture - Preliminary
Blood/Venous No Growth in 24 hours- Final report to follow
09/23/25 11:39 Gram Stain - Preliminary
Pleural Fluid
09/23/25 11:39 Fungal Culture - Preliminary
Pleural Fluid Culture in progress.
Positive cultures are reported as soon as detected.
Final report to follow in four to five weeks.
09/22/25 17:59 Influenza Types A & B (YESSENIA) - Final
Nasal Swab Negative for Influenza A & B, NAAT
Negative results must be combined with clinical observations
and patient history.
Nucleic Acid Amplification test (NAAT)performed on the
[employer] platform.
Therapeutic Drug Monitoring
Random Vancomycin 11.6 ug/ml 09/24/25 07:27
[2025-09-24 08:17] LABS: Hematocrit 28.0 % (37.0-47.0); Hemoglobin 9.3 g/dL (12.0-16.0); Mean Corp Hgb Conc. 33.2 g/dL (33.0-37.0); Mean Corpuscular Volume 92.7 fL (81.0-99.0); Platelet Count 275 10^3/uL (130-400); Red Cell Dist. Width 13.2 % (11.5-14.5)
[2025-09-24 08:31] LABS: Procalcitonin 0.33 ng/ml (0.0-0.25)
[2025-09-24 08:43] LABS: Blood Urea Nitrogen 31 mg/dl (7-17); Calcium 9.2 mg/dl (8.4-10.2); Carbon Dioxide 29 mmol/L (22-30); Chloride 96 mmol/L (98-107); Estimated Creatinine Clearance 32 ml/min; Glucose 133 mg/dl (70-99); Potassium 4.7 mmol/L (3.5-5.1); Sodium 128 mmol/L (135-145); eGFR 48.63
[2025-09-24] MEDS: DELTASONE 10 MG PO (08:47)
[2025-09-24] MEDS: CARDIZEM CD 240 MG PO (08:47)
[2025-09-24] MEDS: FEMARA 2.5 MG PO (08:47)
[2025-09-24] MEDS: EFFEXOR XR 150 MG PO (08:47)
[2025-09-24] MEDS: DITROPAN 10 MG PO (08:47)
[2025-09-24] MEDS: ELIQUIS 5 MG PO ×2 (08:47→20:25)
[2025-09-24] MEDS: CATAPRES 0.3 MG PO ×3 (08:47→21:19)
[2025-09-24] MEDS: MUCINEX 600 MG PO ×2 (08:48→20:24)
[2025-09-24] MEDS: SENOKOT 17.2 MG PO (09:35)
[2025-09-24] MEDS: MIRALAX 17 GRAMS PO (09:36)
[2025-09-24] MEDS: VANCOCIN 150 IV (10:28)
[2025-09-24] MEDS: LASIX 20 MG PO (11:10)
[2025-09-24 11:15] VITALS: BP 157/119
[2025-09-24 11:49] VITALS: BP 155/69
[2025-09-24 15:30] VITALS: BP 146/60
--- NOTE | 2025-09-24 16:21 | W.PN.PUL3 ---
Today's Communication / Plan
-
Cont. Supportive care--> declined further cancer therapy.
ABX - consider 7d.
Cont. O2 --> baseline.
Follow cultures.
Hopefully --DC soon.
Assessment
-
Patient is a very pleasant 89-year-old female with history of lung cancer as well as COPD, baseline oxygen dependent, a flutter on Eliquis, who presented to the emergency room via EMS due to worsening shortness of breath over the last few days.
She was recently discharged for similar complaints about 3 weeks ago. Cytology from thoracentesis 09/04/2025: Show atypical cells.
#1. Right-sided pleural effusion, concern for malignant effusion
-08/24/2025 status post thoracentesis- exudative - cyto pending.
-Chest x-ray post with reexpansion of the lung. Minimal residual effusion.
-
- 09/03, status post IR guided drainage, 800 mL fluid removed, lung reexpanded post-thoracentesis
- Atypical cells.
- Exudative by LDH criteria, ratio 0.78. Primarily mononuclear cells.
If pleural effusion continues to recur intrapleural catheter may be an option-this will be an ongoing discussion if there is rapid recurrence in the next several weeks which I suspect will reoccur -- recommend pulmonary follow up to consider IPC. Pt
agreeable to this.
Recommend palliative care--pt decline addional lung cancer work up - follow up with Dr. Caraballo at [facility].
Apperntly PET CT in 12/2024 with suggestion of recurrence.
#2. 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
- Differential diagnosis also includes pneumonia however post-thoracentesis patient has better lung aeration, more suggestive of compressive atelectasis due to pleural effusion.
-CT chest from 09/22/2025--> showed worsening central right upper lobe opacity/cancer/lymphangitic spread-difficult to discern from infectious/postobstructive.
- Patient reports history of radiation for right upper lobe lung cancer.
Reportedly recent imaging as outpatient suggested recurrence of lung cancer which patient is aware-the son was in the bedside, he confirms that the patient was seen by her oncologist and she was told there is no options for therapy due to currnet
functional status and she would need biopsy to confirm.
I did discuss possibility of palliative care/hospice.
Declined further eval.
#3. Acute on chronic hypoxic respiratory failure-currently on 6 L.(Usually on 5 L supplemental oxygen at home)
- Multifactorial, patient has baseline severe COPD with noted emphysema on imaging along with history of lung cancer, large right-sided pleural effusion with compressive atelectasis/recurrent cancer/airspace disease. Lymphangitic expressed cannot
be ruled out.
- Continue supplemental O2, target SpO2 89% or greater in view of underlying pulmonary hypertension
- Chest x-ray postthoracentesis showed no evidence for pneumothorax. Persistent right hilar opacity underlying malignancy. Good reexpansion of the right lung. Doubt central airway obstruction.
Patient does have leukocytosis on admission But she is afebrile-difficult to discern between malignancy and pneumonia. She did complete a course of antibiotics recently.
Currently on antibiotics per primary team-low threshold to discontinue if there is rapid improvement after thoracentesis and all cultures negative.
Procal slightly elevated -- not unreasonable to RX with short course of ABx.
Sputum culture if able to produce
#4. History of severe COPD, baseline oxygen dependent
- Continue DuoNeb 4 times daily scheduled, and budesonide twice daily nebulized-usual regiment.
- No indication for systemic corticosteroids-currently on prednisone 10 mg.--? unclear who prescribes.
- Patient continues to smoke as outpatient, as it makes her happy
#5. Pulmonary hypertension, severe.
- Pulmonary artery systolic pressure of 77 with moderate tricuspid regurgitation. RV size and function preserved however.
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
- Continue supplemental oxygen, target SpO2 89% or greater
Other medical diagnoses:
- Wide-complex tachycardia, differential diagnosis includes SVT with aberrancy, multifocal atrial tachycardia versus A-fib/a flutter in the setting of COPD exacerbation
- Mild troponin leak
- Hypertension
- History of CA breast, s/p surgery and radiation. Not on any chemotherapy
- Elevated lactate, since normalized down to 0.8
- Abnormal creatinine, CKD versus LISA.
- Hyperglycemia
- Hypomagnesemia
[facility].
-
Hopefully DC planning soon.
Will leave info on chart for follow up win short term-- may need IPC for pleura effusion recurrance.
Data:
ECHO 08/2025: 1. Hyperdynamic left ventricular systolic function. No regional wall motion abnormalities. LVEF 70-75%.
2. Mild to moderate mitral regurgitation.
3. Moderate tricuspid regurgitation.
4. Severely elevated pulmonary artery systolic pressure (77 mmHg).
5. No prior study available for comparison.
CT Chest 08/2025: 1. Moderate right pleural effusion with associated atelectasis and/or pneumonia.
2. Progressed right upper lobe consolidation may reflect a combination of atelectasis/scarring and pneumonia. Cannot rule out superimposed recurrent neoplasm.
3. Scattered prominent mediastinal and probable hilar lymph nodes, likely similar to prior and may be reactive and/or metastatic.
Subjective Data
-
Date of Service:
Date of Service: September 24, 2025
Objective Data
Data Reviewed
Vital Signs / I&O / Oxygen:
Vital Signs
Temp Pulse Resp BP Pulse Ox
97.9 F 70 16 146/60 94
09/24/25 15:30 09/24/25 15:30 09/24/25 15:30 09/24/25 15:30 09/24/25 15:30
Intake and Output
09/23/25 09/24/25 09/25/25
06:59 06:59 06:59
Intake Total 480 / 480 1020 / 1020
Balance 480 / 480 1020 / 1020
SaO2 94
Nasal Cannula flow liters per 4
minute
Labs/Micro/Reports
Lab Data
09/24/25 07:27
09/24/25 07:27
Microbiology
09/23/25 11:39 Pleural Fluid Body Fluid Culture - Preliminary
No Growth After 18-24 Hours
09/23/25 11:39 Pleural Fluid Gram Stain - Preliminary
09/22/25 17:59 Blood/Venous Blood Culture - Preliminary
No Growth in 24 hours- Final report to follow
09/22/25 17:59 Blood/Venous Blood Culture - Preliminary
No Growth in 24 hours- Final report to follow
09/23/25 11:39 Pleural Fluid Fungal Culture - Preliminary
Culture in progress.
Positive cultures are reported as soon as detected.
Final report to follow in four to five weeks.
09/22/25 17:59 Nasal Swab Influenza Types A & B (YESSENIA) - Final
Negative for Influenza A & B, NAAT
Negative results must be combined with clinical observations
and patient history.
Nucleic Acid Amplification test (NAAT)performed on the
[employer] platform.
[2025-09-24] MEDS: SENOKOT PO (20:25)
[2025-09-24] MEDS: LIPITOR 10 MG PO (21:18)
[2025-09-24] MEDS: MELATONIN 3 MG PO (21:18)
[2025-09-24] MEDS: ROBITUSSIN 200 MG PO (21:18)
[2025-09-24] MEDS: SINGULAIR 10 MG PO (21:18)
[2025-09-24 23:30] VITALS: BP 126/48
[2025-09-25 03:45] VITALS: BP 123/57
[2025-09-25 04:06] VITALS: BMI 22.8
[2025-09-25] MEDS: STERILE WATER FOR INJECTION 10 ML IV (05:30)
[2025-09-25] MEDS: MAXIPIME 2000 MG IV (05:30)
[2025-09-25] MEDS: DUONEB 3 ML INH ×3 (07:31→15:34)
[2025-09-25] MEDS: ADVAIR HFA 115/21 MCG INHALER 2 PUFF INH (07:31)
[2025-09-25] MEDS: PULMICORT 0.5 MG INH (07:32)
--- NOTE | 2025-09-25 07:47 | W.PN.HOSP.TC ---
Addendum entered and electronically signed by Luis Antonio Conner MD 09/25/25 13:41:
Seen and examined the patient with the resident. Agree with the plan. See changes in my documentation
89-year-old with history of lung cancer, COPD, history of radiation for breast cancer came with shortness of breath
Patient does not know any history of the details of the treatment of her cancer. Spoke to son he does not have much of an idea either except that she was treated at [facility]. He stated that her cancer treatment with radiation was about 5 years
ago and in December she had a PET scan and was found to have recurrence. It was decided just to watch it and not treated. As far as he knows she did not have any biopsy.
ECHO-hyperdynamic LV. EF 70 to 75%. Mild to moderate MR, moderate TR. severely elevated PA pressures & millimeters of mercury
CT of the chest-significant increase in the dense opacification centrally in the right chest at least in part suggesting atelectasis/volume loss possibly accompanying malignancy. Increase in the moderate right pleural effusion. No pneumothorax or
left pleural effusion. Mild mediastinal lymphadenopathy.
PET scan January 08-2.5 and 2.1 cm nodule in the inferior right upper lobe suspicious for malignancy. Additional 2.2 cm nodule in the right lower lobe may be infectious/inflammatory or intrapulmonary metastasis. Right hilar and mediastinal lymph
nodes
Repeat chest x-ray-small effusion
Cardiovascular system S1-S2 appreciated
Chest clear few rales bilaterally
Abdominal soft and nontender
No pedal edema
Skin tear right marques
# Acute on chronic hypoxic respiratory failure secondary to moderate to large pleural effusion
Recurrent pleural effusion-concerning for malignant effusion-cytology was negative for malignancy from 09/04/2025
Interventional radiology performed thoracentesis today with 1400 mL of clear jectw-[id number]-[id number] pending
Continue antibiotics-procalcitonin elevated
Pulmonary evaluation appreciated
Pulmonary will arrange PleurX catheter if needed. Patient needs to follow-up
# COPD with chronic hypoxic respiratory failure on 5 L of oxygen at baseline
Continue albuterol, budesonide, Mucinex, montelukast
# Acute on chronic hyponatremia-possible SIADH.
Will provide 1 dose of Lasix and follow sodium as OP
# Anemia-likely secondary to chronic disease
# Right marques skin tear-Daily wound care
# History of lung cancer right upper lobe status post radiation- 5 years ago concern for recurrence in SEP 2024. PET December 2024
Spoke to .
Saw Oct 2024-Right pleural effusion- at [facility] Oct 2024
Patient had a PET scan done in December she was not healthy to undergo treatment therefore the plan was to watch her. They have not followed up with Dr. Gibbs
Discussed with patient and son at bedside earlier today. Neither of them are interested in pursuing further workup for malignancy knowing that this could be malignancy and aware about consequences of untreated malignancy. She states that 'I am old
and I do not want to pursue any treatment'.
Palliative care was also discussed
Discussed about the plan of following her up with pulmonary as outpatient and if there is a recurrence of the pleural effusion she could get a PleurX catheter for symptom management. If the malignancy gets worse they could consider hospice at that
time. Patient and son are both on board with this plan.
# Paroxysmal atrial fibrillation/flutter-continue Cardizem to 40 mg daily, Eliquis
# Hypertension-continue Cardizem, clonidine
# History of wide-complex tachycardia - SVT with aberrancy
# Hyperlipidemia/atherosclerosis-continue statin
# Severe pulmonary hypertension-systolic pressure 77 mmHg and moderate TR
# History of breast cancer status postmastectomy and radiation-continue letrozole
# Osteoporosis
# Overactive bladder-continue oxybutynin
# Anxiety and depression-continue venlafaxine
# Infrarenal aortic ectasia
# Active smoker-cessation counseling
# DVT prophylaxis-Eliquis
# DNR
Case discussed with patient's son in detail at bedside yesterday
Discussed with pulmonary
Will defer daily prednisone to outpatient doctor who started the patient on prednisone. Looks like she has been on chronic prednisone
More than 30 minutes spent in discharge including
Final examination of the patient
Summarizing hospital stay
Instructions for continuing care to all relevant caregivers
Preparation of discharge records, prescriptions, and referral forms
Part of this note was created using voice recognition system. Occasional wrong word or��sound alike� substitutions may have inadvertently occurred due to the inherent limitations of voice recognition software. If noted kindly bring it to my
attention for correction.
Original Note:
Today's Communication/Plan
-
started cefdinir and doxycycline for 7 days
discharge today
Assessment / Plan
Assessment / Plan
89 y/o F pmh of chronic hypoxic respiratory failure, COPD on 5 L oxygen, lung cancer s/p radiation, breast cancer s/p mastectomy/radiation, hypertension, atrial tachycardia atrial fibrillation/flutter, pulmonary hypertension, hyperlipidemia,
anxiety, wide-complex tachycardia likely SVT with aberrancy, macrocytic anemia presented on 09/22/2025 with increased shortness of breath for the past 3 days. She was hypoxemic to 70%. She has chronic cough at baseline. Patient always feels short
of breath but this got worse around a week ago.
Imaging
Chest Xray 09/22/2025
-Marked progression of opacification involving the lower half the right hemithorax at least in part suggesting moderate to large right pleural effusion with likely accompanying atelectasis/volume loss.
-Cannot exclude accompanying mass and/or consolidation in the right upper perihilar region
CT Chest W/o Iv Contrast 09/22/2025
-Significant increase in dense opacification centrally in the right chest at least in part suggesting atelectasis/volume loss, possible accompanying MALIGNANCY, evaluation overall markedly limited without intravenous contrast. Additional increase in
moderate right pleural effusion.
-No pneumothorax or left pleural effusion. Mild mediastinal lymphadenopathy
Echo 09/03/2025
1. Hyperdynamic left ventricular systolic function. No regional wall motion abnormalities. LVEF 70-75%.
2. Mild to moderate mitral regurgitation.
3. Moderate tricuspid regurgitation.
4. Severely elevated pulmonary artery systolic pressure (77 mmHg).
5. No prior study available for comparison
Procedure
Thoracentesis 09/22/2025
-Successful ultrasound-guided thoracentesis, yielding 1400 cc of clear tej pleural fluid.
Plan
Acute on chronic hypoxemic respiratory failure secondary to right pleural effusion/possible parapneumonic vs secondary to right heart failure from pulmonary hypertension
- Currently on 5 L oxygen
- Chest x-ray see above
- Leukocytosis - improving
- Cannot rule out underlying pneumonia/ malignancy
- CT chest- right chest opacification- ? malignancy ?pneumonia? atelectasis
- Blood cultures- NG in 48h -pending
- Vancomycin/cefepime #D4 - d/c switch to cefdinir 300mg BID and Doxycycline 100mg BID for 7 days
- lactic acid - 0.7 N, cardiac BNP - 2260 HF likely , troponin - 0.[address]
- Consult IR, input appreciated
- Thoracentesis on 09/23/2025 - 800 mL fluid removed-- chest xray s/p thoracententesis--> lung reexpanded-->If pleural effusion continues to recur- ? intrapleural catheter
- Exudative by LDH criteria, LDH ratio 0.98, Protein ratio 0.545. Primarily mononuclear cells, Atypical cells.
- Fluid studies- pending
- Not clinically septic
- PT screening - no skilled rehab needed
History of severe COPD, baseline oxygen dependent
- home O2 5L
- DuoNebs Q6h, budenoside BID
- Continue montelukast
- chronically on 10mg Prednisone- reason unknown
- continues to smoke
Slight worsening of chronic hyponatremia
- Sodium 129
- 20mg PO Lasix once
Lung cancer s/p radiation
-Pt does not remember when she was diagnosed the first time. It was in [facility]
-Per pt recent imaging as outpatient showed recurrence of lung cancer, she was seen by her oncologist and she was told there is no options for therapy because of her age
-called the pt's son Jordon did not respond will try again later regarding details
Breast cancer s/p mastectomy/radiation
- Continue letrozole
Essential hypertension
Atrial fibrillation/flutter
- Continue diltiazem
- Continue Eliquis
Wide-complex tachycardia/SVT with a Feng C
History of atrial flutter
Pulmonary hypertension
- Pulmonary artery systolic pressure of 77 with moderate tricuspid regurgitation. RV size and function preserved.
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
- Continue supplemental oxygen, target SpO2 89% or greater
Hyperlipidemia
- Continue statin
Anxiety
Chronic macrocytic anemia
- Baseline
Osteoporosis
Active smoker
-6 cigarettes/day
DNR/DNI
DVT prophylaxis�Eliquis
Regular diet
Anticipated Discharge: Today
Subjective/Interval History
-
Date of Service: September 25, 2025
She feels better than yesterday reporting improving. She is on 5L of oxygen. She denies palpitations, chest pain.
Objective Data
-
Labs:
Laboratory Results
09/25/25
07:06
WBC Pending
Hgb Pending
Hct Pending
Plt Count Pending
Sodium Pending
Potassium Pending
Chloride Pending
Carbon Dioxide Pending
BUN Pending
Creatinine Pending
Glucose Pending
Calcium Pending
Vital Signs:
Vital Signs
Temp Pulse Resp BP Pulse Ox
97.2 F 68 20 123/57 94
09/25/25 03:45 09/25/25 07:33 09/25/25 07:33 09/25/25 03:45 09/25/25 07:33
I&O
09/24/25 09/25/25 09/26/25
06:59 06:59 06:59
Intake Total 1020 / 1020 1350 / 1350
Balance 1020 / 1020 1350 / 1350
Review of Systems
-
History Source: Patient
Constitutional: Reports No Symptoms
EENT: Reports No Symptoms Reported
Respiratory: Reports Trouble Breathing (5L)
Cardiac: Reports No Symptoms
Abdomen/GI: Reports No Symptoms
Breast: Reports No Symptoms
Genitourinary: Reports No Symptoms
Musculoskeletal: Reports No Symptoms
Skin: Reports No Symptoms
Neuro: Reports No Symptoms
Endocrine: Reports No Symptoms
Hematologic / Lymphatic: Reports No Symptoms
Physical Exam
-
General: Well Developed, Well Nourished and Conversant
HEENT: Normocephalic, Atraumatic, Hearing Impaired and Oxygen (5L NC)
Respiratory: Wheezes
Cardiac: Regular Rhythm and S1/S2
Breast: Deferred by me
GI: Soft, Nontender, Nondistended and Normal Bowel Sounds
Rectal: Deferred by Provider
Genito-urinary: Deferred by me
Musculoskeletal: No Clubbing, No Cyanosis and No Edema
Skin: Warm and Dry
Neuro: AO x 3
Psych: Calm
[2025-09-25 07:48] VITALS: BP 173/72
[2025-09-25 07:57] LABS: Blood Urea Nitrogen 31 mg/dl (7-17); Glucose 91 mg/dl (70-99)
[2025-09-25 07:58] LABS: Calcium 9.4 mg/dl (8.4-10.2); Carbon Dioxide 31 mmol/L (22-30); Chloride 98 mmol/L (98-107); Estimated Creatinine Clearance 36 ml/min; Potassium 4.7 mmol/L (3.5-5.1); Sodium 129 mmol/L (135-145); eGFR 54.53
[2025-09-25 08:13] LABS: Hematocrit 29.2 % (37.0-47.0); Hemoglobin 9.8 g/dL (12.0-16.0); Mean Corp Hgb Conc. 33.6 g/dL (33.0-37.0); Mean Corpuscular Volume 93.6 fL (81.0-99.0); Platelet Count 271 10^3/uL (130-400); Red Cell Dist. Width 13.1 % (11.5-14.5)
[2025-09-25] MEDS: MUCINEX 600 MG PO (08:23)
[2025-09-25] MEDS: CARDIZEM CD 240 MG PO (08:23)
[2025-09-25] MEDS: DITROPAN 10 MG PO (08:23)
[2025-09-25] MEDS: CATAPRES 0.3 MG PO ×2 (08:23→15:16)
[2025-09-25] MEDS: DELTASONE 10 MG PO (08:23)
[2025-09-25] MEDS: ELIQUIS 5 MG PO (08:24)
[2025-09-25] MEDS: SENOKOT 17.2 MG PO (08:24)
[2025-09-25] MEDS: EFFEXOR XR 150 MG PO (08:24)
[2025-09-25] MEDS: FEMARA 2.5 MG PO (08:24)
[2025-09-25] MEDS: MIRALAX 17 GRAMS PO (08:24)
[2025-09-25] MEDS: FEOSOL 325 MG PO (08:24)
--- NOTE | 2025-09-25 08:35 | PHA.VAN.FU ---
Vancomycin Assessment / Plan
- Assessment
Renal Function: Stable
WBC's are: Trending Down
In the past 24 hrs, patient has been: Afebrile
Concomitant Antimicrobials: cefepime
- Assessment - Therapeutic Drug Monitoring
Random Level: 13 - drawn ~20.5H after previous dose of 750mg
- Dosing Plan
Dosing by Level: Re-dose today (Vanc 750mg)
Dosing Comments: patient with some accumulation - may require prolonged interval
- Monitoring Plan
Random Level: 09/26 06
- Follow Up
Pharmacy will continue to follow.
Vancomycin Follow UP
- -
Patient Age: 89
Patient Sex: Female
Vancomycin Day #: 4
Indication: Pulmonary/Respiratory
Requesting Provider: Dr Yi Bajwa
Pertinent Antimicrobial Allergies:
PCN - rash
sulfonamide antibiotics - rash
Height / Weight:
Height 5 ft 5 in
Actual Weight 62.233 kg
Pertinent Past Medical History: COPD (home O2)
- Vital Signs / Lab Results
Temp Pulse Resp BP Pulse Ox
97.2 F 68 20 123/57 94
09/25/25 03:45 09/25/25 07:33 09/25/25 07:33 09/25/25 03:45 09/25/25 07:33
Lab Results - Hematology
09/22/25 09/23/25 09/24/25
17:04 07:29 07:27
WBC 14.0 H 11.0 H 16.3 H
09/25/25
07:06
WBC 11.8 H
Lab Results - Chemistry
09/22/25 09/23/25 09/24/25
17:04 07:29 07:27
BUN 18 H 28 H 31 H
Creatinine 1.0 1.0 1.1 H
Estimated Creat Clear 36 36 32
Albumin 3.0 L 2.9 L
09/25/25
07:06
BUN 31 H
Creatinine 1.0
Estimated Creat Clear 36
Albumin
09/22/25 09/22/25
17:59 21:30
Lactic Acid 0.7 Cancelled
Microbiology Results
09/22/25 17:59 Blood Culture - Preliminary
Blood/Venous No Growth in 48 hours- Final report to follow
09/22/25 17:59 Blood Culture - Preliminary
Blood/Venous No Growth in 48 hours- Final report to follow
09/23/25 11:39 Body Fluid Culture - Preliminary
Pleural Fluid No Growth After 18-24 Hours
Gram Stain - Preliminary
09/23/25 11:39 Fungal Culture - Preliminary
Pleural Fluid Culture in progress.
Positive cultures are reported as soon as detected.
Final report to follow in four to five weeks.
Therapeutic Drug Monitoring
Random Vancomycin 13.0 ug/ml 09/25/25 07:06
[2025-09-25] MEDS: LASIX 20 MG IV (09:52)
[2025-09-25] MEDS: VANCOCIN 150 IV (09:53)
[2025-09-25 11:20] VITALS: BP 146/63
--- NOTE | 2025-09-25 13:22 | CM ---
Chart reviewed. Per PA, patient medically stable to return to [facility]
Update to [facility] admissions
Updated patient bedside. IMM verbally reviewed, copy provided, copy on chart
Ambulance transport forms provided to to arrange
[facility]
Report: [phone]

Plan: Return to [facility] today
--- NOTE | 2025-09-25 13:26 | W.PN.PUL3 ---
Today's Communication / Plan
-
Continue with secretion clearance interventions
Short-term antibiotics
Short-term follow-up in the office to assess for recurrence of pleural effusion, IPC may be an option. Will be an ongoing discussion.
Patient declined invasive evaluation for possible recurrent cancer
Follow-up pleural fluid cytology
Agree with discharge planning
Sign off
Assessment
-
Patient is a very pleasant 89-year-old female with history of lung cancer as well as COPD, baseline oxygen dependent, a flutter on Eliquis, who presented to the emergency room via EMS due to worsening shortness of breath over the last few days.
She was recently discharged for similar complaints about 3 weeks ago. Cytology from thoracentesis 09/04/2025: Show atypical cells.
#1. Right-sided pleural effusion, concern for malignant effusion
-08/24/2025 status post thoracentesis- exudative - cyto pending.
-Chest x-ray post with reexpansion of the lung. Minimal residual effusion.
-
- 09/03, status post IR guided drainage, 800 mL fluid removed, lung reexpanded post-thoracentesis
- Atypical cells.
- Exudative by LDH criteria, ratio 0.78. Primarily mononuclear cells.
If pleural effusion continues to recur intrapleural catheter may be an option-this will be an ongoing discussion if there is rapid recurrence in the next several weeks which I suspect will reoccur -- recommend pulmonary follow up to consider IPC. Pt
agreeable to this.
Recommend palliative care--pt decline addional lung cancer work up - follow up with Dr. Caraballo at [facility].
Apperntly PET CT in 12/2024 with suggestion of recurrence.
#2. 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
- Differential diagnosis also includes pneumonia however post-thoracentesis patient has better lung aeration, more suggestive of compressive atelectasis due to pleural effusion.
-CT chest from 09/22/2025--> showed worsening central right upper lobe opacity/cancer/lymphangitic spread-difficult to discern from infectious/postobstructive.
- Patient reports history of radiation for right upper lobe lung cancer.
Reportedly recent imaging as outpatient suggested recurrence of lung cancer which patient is aware-the son was in the bedside, he confirms that the patient was seen by her oncologist and she was told there is no options for therapy due to currnet
functional status and she would need biopsy to confirm.
I did discuss possibility of palliative care/hospice-will be an ongoing discussion.
Declined further eval.
#3. Acute on chronic hypoxic respiratory failure-currently on 6 L.(Usually on 5 L supplemental oxygen at home)
- Multifactorial, patient has baseline severe COPD with noted emphysema on imaging along with history of lung cancer, large right-sided pleural effusion with compressive atelectasis/recurrent cancer/airspace disease. Lymphangitic expressed cannot
be ruled out.
- Continue supplemental O2, target SpO2 89% or greater in view of underlying pulmonary hypertension
- Chest x-ray postthoracentesis showed no evidence for pneumothorax. Persistent right hilar opacity underlying malignancy. Good reexpansion of the right lung. Doubt central airway obstruction.
Patient does have leukocytosis on admission But she is afebrile-difficult to discern between malignancy and pneumonia. She did complete a course of antibiotics recently.
Currently on antibiotics per primary team-low threshold to discontinue if there is rapid improvement after thoracentesis and all cultures negative.
Procal slightly elevated -- not unreasonable to RX with short course of ABx.
Sputum culture if able to produce
#4. History of severe COPD, baseline oxygen dependent
- Continue DuoNeb 4 times daily scheduled, and budesonide twice daily nebulized-usual regiment.
- No indication for systemic corticosteroids-currently on prednisone 10 mg.--? unclear who prescribes.
- Patient continues to smoke as outpatient, as it makes her happy
#5. Pulmonary hypertension, severe.
- Pulmonary artery systolic pressure of 77 with moderate tricuspid regurgitation. RV size and function preserved however.
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
- Continue supplemental oxygen, target SpO2 89% or greater
Other medical diagnoses:
- Wide-complex tachycardia, differential diagnosis includes SVT with aberrancy, multifocal atrial tachycardia versus A-fib/a flutter in the setting of COPD exacerbation
- Mild troponin leak
- Hypertension
- History of CA breast, s/p surgery and radiation. Not on any chemotherapy
- Elevated lactate, since normalized down to 0.8
- Abnormal creatinine, CKD versus LISA.
- Hyperglycemia
- Hypomagnesemia
[facility].
-
Discharge planning.
No additional recommendation
Sign off
Will leave info on chart for follow up win short term-- may need IPC for pleura effusion recurrance.
Data:
ECHO 08/2025: 1. Hyperdynamic left ventricular systolic function. No regional wall motion abnormalities. LVEF 70-75%.
2. Mild to moderate mitral regurgitation.
3. Moderate tricuspid regurgitation.
4. Severely elevated pulmonary artery systolic pressure (77 mmHg).
5. No prior study available for comparison.
CT Chest 08/2025: 1. Moderate right pleural effusion with associated atelectasis and/or pneumonia.
2. Progressed right upper lobe consolidation may reflect a combination of atelectasis/scarring and pneumonia. Cannot rule out superimposed recurrent neoplasm.
3. Scattered prominent mediastinal and probable hilar lymph nodes, likely similar to prior and may be reactive and/or metastatic.
Subjective Data
-
Date of Service:
Date of Service: September 25, 2025
Chief Complaint: Pulmonary Follow Up (Shortness of breath/malignant pleural effusion)
Subjective:
No new complaints
Objective Data
Data Reviewed
Vital Signs / I&O / Oxygen:
Vital Signs
Temp Pulse Resp BP Pulse Ox
97.4 F 76 18 146/63 94
09/25/25 11:20 09/25/25 11:20 09/25/25 11:20 09/25/25 11:20 09/25/25 11:20
Intake and Output
09/24/25 09/25/25 09/26/25
06:59 06:59 06:59
Intake Total 1020 / 1020 1350 / 1350
Balance 1020 / 1020 1350 / 1350
SaO2 94
Nasal Cannula flow liters per 5
minute
Physical Exam
General: Comfortable (At rest)
HEENT: Normocephalic
Cardiovascular: S1-S2
Respiratory: Wheeze (n) and Crackles (Right base)
GI: Soft and Non Distended
Neurology: Awake
Skin: Warm
Labs/Micro/Reports
Lab Data
09/25/25 07:06
09/25/25 07:06
Microbiology
09/23/25 11:39 Pleural Fluid Body Fluid Culture - Preliminary
No Growth After 48 Hours
09/23/25 11:39 Pleural Fluid Gram Stain - Preliminary
09/22/25 17:59 Blood/Venous Blood Culture - Preliminary
No Growth in 48 hours- Final report to follow
09/22/25 17:59 Blood/Venous Blood Culture - Preliminary
No Growth in 48 hours- Final report to follow
09/23/25 11:39 Pleural Fluid Fungal Culture - Preliminary
Culture in progress.
Positive cultures are reported as soon as detected.
Final report to follow in four to five weeks.
09/22/25 17:59 Nasal Swab Influenza Types A & B (YESSENIA) - Final
Negative for Influenza A & B, NAAT
Negative results must be combined with clinical observations
and patient history.
Nucleic Acid Amplification test (NAAT)performed on the
[employer] platform.
[2025-09-25 15:19] VITALS: BP 142/62
--- NOTE | 2025-09-25 18:15 | W.DCSUMMARY ---
Discharge Summary
Discharge Data
Date of Admission: 09/22/25
Date of Discharge: 09/25/25
-
Pending Results: Yes
Additional Pending Results:
Pleural Fluid culture, fungal, pathology results
Hospital Course
Discharging Physician : Dr. Martha Cheatham, Dr. Luis Antonio Conner
Disposition : [facility]
Primary care physician : Michelle Drake
Principal Discharge diagnosis :
Acute on chronic hypoxic respiratory failure secondary to moderate to large pleural effusion concern for malignant effusion
COPD with chronic hypoxic respiratory failure on 5 L of oxygen at baseline
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
Anemia-likely secondary to chronic disease
Chronic Discharge diagnosis :
Pulmonary hypertension, severe
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
Paroxysmal atrial fibrillation/flutter
Hypertension
History of wide-complex tachycardia
Hyperlipidemia/atherosclerosis
History of breast cancer status postmastectomy and radiation
Osteoporosis
Overactive bladder
Anxiety and depression
Infrarenal aortic ectasia
Hospital Course :
Mrs. Hairston is a 89 y/o female with pmh of chronic hypoxic respiratory failure, COPD on 5 L Oxygen, lung cancer s/p radiation, breast cancer s/p mastectomy/radiation, hypertension, atrial tachycardia atrial fibrillation/flutter, pulmonary
hypertension, hyperlipidemia, anxiety, wide-complex tachycardia likely SVT with aberrancy, macrocytic anemia presented on 09/22/2025 with increased shortness of breath for the past 3 days. She was hypoxemic to 70%. She had right sided Pleural
effusion on chest xray. She had thoracentesis and cells were atypical. Pleural Fluid cultures still pending. After thoracentesis her symptoms improved to her baseline. She was on antibiotics for possible pneumonia. Pulmonology was on board, she
might have recurrent pleural effusions and require intrepleural catheter.
Recommendations
Please follow up with pulmonology office in two to three weeks for possible recurrence of pleural effusion(fluids) and intrapleural catheter placement
Please continue taking antibiotics Cefdinir and Doxycycline for 7 days as directed
Please follow up with your PCP within a week
Follow-up with the doctor who prescribed prednisone to see if you need to continue to take it every day
Lasix can be started 20 mg Sunday and Sunday at the care home if patient has hyponatremia
If you decide to get further treatment for the cancer you may follow-up with your primary oncologist Dr. Fatima at [facility]
Important imaging findings :
Chest Xray 09/22/2025
-Marked progression of opacification involving the lower half the right hemithorax at least in part suggesting moderate to large right pleural effusion with likely accompanying atelectasis/volume loss.
-Cannot exclude accompanying mass and/or consolidation in the right upper perihilar region
CT Chest W/o Iv Contrast 09/22/2025
-Significant increase in dense opacification centrally in the right chest at least in part suggesting atelectasis/volume loss, possible accompanying MALIGNANCY, evaluation overall markedly limited without intravenous contrast. Additional increase in
moderate right pleural effusion.
-No pneumothorax or left pleural effusion. Mild mediastinal lymphadenopathy
Echo 09/03/2025
1. Hyperdynamic left ventricular systolic function. No regional wall motion abnormalities. LVEF 70-75%.
2. Mild to moderate mitral regurgitation.
3. Moderate tricuspid regurgitation.
4. Severely elevated pulmonary artery systolic pressure (77 mmHg).
5. No prior study available for comparison
Procedure findings :
Thoracentesis 09/22/2025
-Successful ultrasound-guided thoracentesis, yielding 1400 cc of clear tej pleural fluid.
Discharge Plan
-
Patient Disposition: [facility]/SNF
Discharge Diagnosis/Procedures: Acute on chronic hypoxic respiratory failure secondary to moderate to large pleural effusion concern for malignant effusion
COPD with chronic hypoxic respiratory failure on 5 L of oxygen at baseline
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
Anemia-likely secondary to chronic disease
Pulmonary hypertension, severe
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
Paroxysmal atrial fibrillation/flutter
Hypertension
History of wide-complex tachycardia
Hyperlipidemia/atherosclerosis
History of breast cancer status postmastectomy and radiation
Osteoporosis
Overactive bladder
Anxiety and depression
Infrarenal aortic ectasia
Condition: Fair
Diet: Low Cholesterol
Activity: As tolerated
Driving Restrictions: No driving
Bathing Restrictions: None
Other Services: PT
Referrals:
Michelle Drake MD [Family Provider] - in less than 1 week
Dannie Deluna MD [Active, Pulmonary Medicine] - in two to three weeks
Referral Note: May see JACKER - hospital follow up, malignant pleural effusion.
Additional Discharge Medication Instructions: Please follow up with pulmonology office in two to three weeks for possible recurrence of pleural effusion(fluids) and intrapleural catheter placement
Please continue taking antibiotics Cefdinir and Doxycycline for 7 days as directed
Please follow up with your PCP within a week
Follow-up with the doctor who prescribed prednisone to see if you need to continue to take it every day.
Lasix can be started 20 mg Sunday and Sunday at the care home if patient has hyponatremia
If you decide to get further treatment for the cancer you may follow-up with Dr. Fatima
Prescriptions:
New
cefdinir 300 mg Capsule
300 mg PO Q12 Qty: 14 0RF
Continued
atorvastatin 10 mg Tablet
10 mg PO HS
oxybutynin chloride 10 mg Tablet Extended Release 24hr
10 mg PO DAILY
benzonatate 200 mg Capsule
200 mg PO HS
alendronate 70 mg Tablet
70 mg PO MO
clonidine HCl 0.3 mg Tablet
0.3 mg PO TID
venlafaxine 150 mg Capsule,Extended Release 24hr
150 mg PO DAILY
benzonatate 100 mg Capsule
100 mg PO BID
montelukast 10 mg Tablet
10 mg PO HS
letrozole 2.5 mg Tablet
2.5 mg PO DAILY
albuterol sulfate 90 mcg/actuation Hfa Aerosol Inhaler
2 puff INHALATION R Q4HPRN PRN (Reason: SOB)
Rx Instructions:
2 puffs
fluticasone propionate 50 mcg/actuation [place],Suspension
1 spray INTRANASAL BID
levocetirizine 5 mg Tablet
5 mg PO DAILY
Eliquis 5 mg Tablet
5 mg PO BID
fluticasone propion-salmeterol [Advair Diskus] 250-50 mcg/dose Blister With Device
1 inh INHALATION R BID
acetaminophen [Tylenol] 325 mg Tablet
650 mg PO Q6HPRN PRN (Reason: MILD PAIN)
ipratropium-albuterol 0.5 mg-3 mg(2.5 mg base)/3 mL Solution For Nebulization
3 ml INHALATION R Q6HPRN PRN (Reason: SOB)
fexofenadine 60 mg Tablet
60 mg PO BIDPRN PRN (Reason: ALLERGIES)
ondansetron HCl 4 mg Tablet
4 mg PO Q8HPRN PRN (Reason: NAUSEA)
melatonin 3 mg Tablet
3 mg PO HS
guaifenesin [Luz-Tussin] 100 mg/5 mL Liquid
200 mg PO Q6HPRN PRN (Reason: COUGH)
magnesium hydroxide [Milk of Magnesia] 400 mg/5 mL Suspension
2,400 mg PO [id number] PRN (Reason: CONSTIPATION)
bisacodyl [Dulcolax (bisacodyl)] 10 mg Suppository
10 mg CA DAILYPRN PRN (Reason: IF NO BM AFTR MOM)
Fleet Enema 19-7 gram/118 mL Enema
118 ml CA DAILYPRN PRN (Reason: IF NO BM AFTR DULCOLAX)
hydrocortisone 2.5 % Cream
1 applic TOPICAL BID
hydroxyzine HCl 25 mg Tablet
25 mg PO BIDPRN PRN (Reason: ITCHING)
cholecalciferol (vitamin D3) [Vitamin D3] 125 mcg (5,000 unit) Tablet
125 mcg PO DAILY
PreserVision AREDS 2,148 mcg-113 mg-45 mg-17.4mg Tablet
1 tab PO DAILY
Biofreeze (menthol) 4 % Gel
1 applic TOPICAL BID
guaifenesin [Mucinex] 600 mg Tablet Extended Release 12hr
600 mg PO BID
Pataday Once Daily Relief 0.7 % Drops
1 drp BOTH EYES BID
diltiazem HCl 240 mg Capsule,Extended Release 24hr
240 mg PO DAILY Qty: 30 0RF
doxycycline hyclate 100 mg Capsule
100 mg PO Q12 Qty: 4 0RF
calcium carbonate [Calcium Antacid] 200 mg calcium (500 mg) Tablet,Chewable
200 mg PO Q6HPRN PRN (Reason: gerd) Qty: 5 0RF
budesonide 0.5 mg/2 mL Suspension For Nebulization
0.5 mg inhalation R BID Qty: 0 0RF
prednisone 10 mg Tablet
10 mg PO DAILY Qty: 1 0RF
Rx Instructions:
resume this dose after your prednisone taper completes
Discontinued
prednisone 10 mg Tablet
10 mg PO DIRECTED Qty: 6 0RF
Rx Instructions:
For prednisone taper, take 20 mg for 2 days, then 10 mg for 2 days.
Discharge Orders:
Discharge Patient (As Directed); Ordered 09/25/25
Ordered By: Luis Antonio Conner
Discharge Date and Time
Discharge Date/Time: 09/25/25 17:33
Print Language: MONGOLIAN
== END 2025-09-25 17:33 | DRG 190 ==
LOC: 4 WEST ACU 18:18
PROVIDERS: Physician Assistant Medical; Radiology Vascular & Interventional Radiology; ADMITTING PHYSICIAN Hospitalist; ATTENDING PHYSICIAN Hospitalist; CONSULT PHYSICIAN Internal Medicine Critical Care Medicine; EMERGENCY PHYSICIAN Emergency Medicine; FAMILY PHYSICIAN Internal Medicine
PROC: 0W993ZZ Drainage of Right Pleural Cavity, Percutaneous Approach (ICD-10-PCS; 2025-09-23)
DX: J44.1 Chronic obstructive pulmonary disease with (acute) exacerbation (principal); J96.21 Acute and chronic respiratory failure with hypoxia; E22.2 Syndrome of inappropriate secretion of antidiuretic hormone; F17.210 Nicotine dependence, cigarettes, uncomplicated; Z99.81 Dependence on supplemental oxygen; D63.8 Anemia in other chronic diseases classified elsewhere; I48.0 Paroxysmal atrial fibrillation; Z79.01 Long term (current) use of anticoagulants; I11.0 Hypertensive heart disease with heart failure; M81.0 Age-related osteoporosis without current pathological fracture; N32.81 Overactive bladder; F41.9 Anxiety disorder, unspecified; F32.A Depression, unspecified; Z66 Do not resuscitate; I27.20 Pulmonary hypertension, unspecified; Z79.899 Other long term (current) drug therapy; Z85.118 Personal history of other malignant neoplasm of bronchus and lung
CPT/HCPCS: 32555; 71045; 71046; 71250; 80048; 80053; 80202; 82150; 82607; 82728; 82805; 82945; 83540; 83550; 83605; 83615; 83880; 83930; 83935; 83986; 84145; 84157; 84300; 84478; 84484; 85025; 85027; 87015; 87040; 87070; 87102; 87205; 87206; 87502; 87811; 88112; 88305; 88341; 88342; 89051; 93005; 94640; 96374; 96375; 99291